=== PATIENT | female | born 1970 | race Caucasian/White ===

== ENCOUNTER → 2016-04-19 | Outpatient (CLI) | payer OTHER ==
--- NOTE | 2016-04-24 23:26 | ECWPNPC ---
PATIENT NAME: TAHMINA FORBES : 1970 GENDER: FEMALE VISIT DATE: 04/19/2016 DISCHARGE DATE: 04/19/16 1504 VISIT LOCKED DATE TIME: PHYSICIAN: JERRY TEE RESOURCE: JERRY TEE REASON FOR APPOINTMENT 1. W/C BOTH SHOULDERS/ ELBOWS HISTORY OF PRESENT ILLNESS FALL RISK SCREENING: SCREENING :NO FALLS IN THE PAST YEAR 45 YEAR OLD FEMALE PATIENT WITH HISTORY OF CHRONIC RIGHT AND LEFT SHOULDER AND ELBOW PAIN. PATIENT DESCRIBES THE PAIN ACHING, BURNING, STABBING, THROBBING AND HAVING IT ALL THE TIME WITH A PAIN SCORE OF 7/10. PATIENT WAS INJURED IN A WORK RELATED INJURY. 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 PATIENT STATES THAT SHE HAD RIGHT SHOULDER SURGERY ON 01/29/2014, LEFT SHOULDER SURGERY ON 09/29/2014, RIGHT ELBOW SURGERY ON 05/07/2015, AND LEFT ELBOW SURGERY ON 09/08/2015. PATIENT REPORTS THAT NOTHING OVER THE COUNTER HELPS WITH HER PAIN ANYMORE. PATIENT STATES SHE WAS REFERRED TO US BY DR. PARKER. PATIENT STATES SHE IS ON MEDICATION FOR HIGH BLOOD PRESSURE. PATIENT INDICATES THAT LIFTING AND GARDENING INCREASES HER PAIN LEVELS. PATIENT STATES THAT A HEAT COMPRESS DOES PROVIDE TEMPORARY PAIN RELIEF. PATIENT STATES THAT SHE USE TO HAVE PHYSICAL THERAPY IN THE PAST BUT HAS SINCE STOPPED DUE THERAPY NO LONGER PROVIDING ANY PAIN RELIEF. PATIENT DENIES UNEXPLAINABLE WEIGHT LOSS, FEVER, CHILLS, NEW CHANGES ON HER URINARY OR BOWEL CONTROL. PAIN SCREENING: PATIENT HAS A COMPLAINT OF ACUTE OR CHRONIC PAIN YES CURRENT MEDICATIONS TAKING LISINOPRIL-HYDROCHLOROTHIAZIDE 10-12.5 MG TABLET 1 TABLET ORALLY DAILY TAKING NEURONTIN 300 MG CAPSULE 1 CAPSULE ORALLY THREE TIMES A DAY TAKING LEVOTHYROXINE SODIUM 125 MCG TABLET 1 TABLET ON AN EMPTY STOMACH IN THE MORNING ORALLY ONCE A DAY TAKING ROPINIROLE HCL 1 MG TABLET 1 TAB ORALLY BEFORE BEDTIME TAKING FLUOXETINE HCL 40 MG CAPSULE 1 CAPSULE IN THE MORNING ORALLY ONCE A DAY TAKING ESTRACE 2 MG TABLET 1 TABLET ORALLY DAILY TAKING BUSPIRONE HCL 15 MG TABLET 1 TABLET ORALLY TWICE A DAY TAKING TRAZODONE HCL 100 MG TABLET 1 TABLET AT BEDTIME ORALLY ONCE A DAY PRN TAKING PRAVASTATIN SODIUM 40 MG TABLET 1 TABLET ORALLY ONCE A DAY DISCONTINUED ESTRADIOL 2 MG RING VAGINAL DISCONTINUED CELEXA 20 MG TABLET ORALLY DISCONTINUED TIZANIDINE HCL 4 MG CAPSULE 1 CAPSULE NEEDED ORALLY THREE TIMES A DAY DISCONTINUED ACETAMINOPHEN-CODEINE #3 300-30 MG TABLET 1 TABLET NEEDED ORALLY EVERY 6 HRS MEDICATION LIST REVIEWED AND RECONCILED WITH THE PATIENT PAST MEDICAL HISTORY HYPERTENTION ANXIETY DEPRESSION BILAT. SHOULDER AND ELBOW PAIN ALLERGIES N.K.D.A. SURGICAL HISTORY UMBILICAL HERNIA REPAIR CARPAL TUNNEL RELEASE-BILAT. BILAT. SHOULDER ARTHROSCOPY ROTATOR CUFF REPAIR TOTAL HYSTERECTOMY 2008 BILAT. ELBOW RELEASE FAMILY HISTORY FATHER: ALIVE, DIAGNOSED WITH HEART DISEASE MOTHER: 1DAUGHTER(S) - HEALTHY. SOCIAL HISTORY GENERAL: TOBACCO USE ARE YOU A:FORMER SMOKER HOW LONG HAS IT BEEN SINCE YOU LAST SMOKED?5-10 YEARS ALCOHOL SCREENING POINTS0 INTERPRETATIONNEGATIVE RECREATIONAL DRUG USE DRUG USE?NO CAFFEINE CAFFEINE USE?YES 2-4 GLASSES OF SODA/DAY OCCUPATION: DISABILITY. DIET: REGULAR. EXERCISE: NO REGULAR EXERCISE. MARITAL STATUS: . OTHERS AT HOME: SPOUSE, CHILDREN, OTHER RELATIVE. PETS: NONE. YAZIDISM: NO SCIENTOLOGY BELIEFS THAT WOULD IMPACT HEALTH CARE. LANGUAGE: WELSH. EDUCATION: PLAN OF CARE REVIEWED WITH PATIENT.. LEARNING BARRIERS / SPECIAL NEEDS BARRIERS TO LEARNING?NO LEARNING PREFERENCES?YES :DEMONSTRATION/VERBAL INSTRUCTION MEDICATION ABUSE NO PSYCHOLOGICAL HX TREATMENTYES ON MEDICATION PAIN CLINIC PFS, CLERGY, PUBLIC HEALTH REFERRALS PFS REFERRAL NEEDED?NO CLERGY REFERRAL NEEDED?NO PUBLIC HEALTH REFERRAL NEEDED?NO WAS THE PROVIDER NOTIFIED OF ANY PERTINENT INFO?NO ADVANCED DIRECTIVES HEALTH CARE PROXY?NO DECLINES INFORMATION AT THIS TIME POWER OF BUSINESS ADMINISTRATION TEACHER?NO HOSPITALIZATION/MAJOR DIAGNOSTIC PROCEDURE SEE ABOVE SURGERY CHILD REVIEW OF SYSTEMS CONSTITUTIONAL: ANY CHANGE IN YOUR MEDICAL CONDITION? NO . CHILLS NO . FEVER NO . INFECTION: DO YOU HAVE NEW INFECTIONS? NO . DO YOU HAVE HISTORY OF MRSA? NO . MUSCULOSKELETAL: ANY NEW PATTERNS OF PAIN OR NUMBNESS? NO . SYTEMIC LUPUS NO . GASTROENTEROLOGY: ANY NEW CHANGE IN BOWEL CONTROL? NO . BARRETTS ESOPHAGUS NO . CIRRHOSIS NO . HEPATITIS NO . LIVER FAILURE NO . ACID REFLUX NO . UNEXPLAINED WEIGHT LOSS NO . GENITOURINARY: ANY NEW CHANGE IN BLADDER CONTROL? NO . IS THERE A CHANCE YOU COULD BE ? NO . HEMATOLOGY/LYMPH: DO YOU TAKE ANY BLOOD THINNERS? (FOR EXAMPLE- COUMADIN, PLAVIX, AGGRENOX, PLATEL, PRADAXA, OR XARELTO) NO . WHEN WAS YOUR LAST DOSE? DATE: TIME: . LOW PLATELET COUNT NO . SICKLE CELL DISEASE NO . VON WILLIEBRANDS NO . FACTOR V LEIDEN NO . THALLASEMIA NO . ANEMIA NO . EASY BRUISING NO . NEUROLOGY: HAVE YOU FALLEN IN THE PAST 6 MONTHS? NO . ANY NEW EXTREMITY NUMBNESS OR WEAKNESS? NO . HEAD INJURY NO . DEMENTIA NO . CEREBRAL PALSY NO . MULTIPLE SCLEROSIS NO . DIZZINESS INTERMITTENT . HEADACHE NO . STROKES NO . VERTIGO NO . CARDIOLOGY: DO YOU HAVE A PACEMAKER OR DEFIBRILLATOR? NO . ANGINA NO . HEART ATTACK NO . HEART SURGERY NO . CONGESTIVE HEART FAILURE/FLUID OVERLOAD NO . CHEST PAIN NO . HIGH BLOOD PRESSURE ON MEDICATION(S) . IRREGULAR HEART BEAT NO . RESPIRATORY: HAVE YOU BEEN SICK IN THE PAST WEEK? NO . FEVER NO . FLU LIKE SYMPTOMS? NO . CPAP NO . BYPAP NO . ASTHMA NO . EMPHYSEMA NO . CHRONIC LUNG DISEASES NO . SHORTNESS OF BREATH ON EXERTION NO . COUGH NO . SNORING NO . INTEGUMENTARY: DO YOU HAVE ANY RASHES OR OPEN SORES? NO . ALLERGIC/IMMUNO: ARE YOU ALLERGIC TO SHELLFISH OR IV DYE? NO . ANY NEW ALLERGIES? NO . PSYCHIATRIC: DO YOU HAVE THOUGHTS OF HURTING YOURSELF OR SOMEONE ELSE? NO . ARE YOU ABUSED, NEGLECTED, OR IN AN UNSAFE ENVIRONMENT? NO . ENDOCRINOLOGY: ARE YOU DIABETIC? NO . THYROID DISORDER HYPOTHYROID . OTHER: DO YOU NEED ANY PRESCRIPTIONS? NO . IF YES, PLEASE LIST: ____ . ANY NEW PROBLEMS WITH YOUR MEDICATIONS? NO . WHEN DID YOU LAST EAT? ____ . WHEN DID YOU LAST DRINK? ____ . WHAT DID YOU LAST DRINK? ____ . NAME OF PERSON DRIVING YOU HOME? ____ . DO YOU HAVE ANY OTHER QUESTIONS OR CONCERNS NO . REVIEWED BY: PROVIDER: JERRY TEE MD . VITAL SIGNS WT 195 LBS, HT 65 IN, BMI 32.45 INDEX, BP 128/73 MM HG, HR 79 /MIN, RR 16 /MIN, TEMP 96.3 F, OXYGEN SAT % 96, NA INITIALS TL 1325, REVIEWED BY: AD. EXAMINATION : PATIENT IS ALERT O X 3 AND COOPERATIVE. PATIENT CAN ONLY ABDUCT UPPER EXTREMITIES AT 80 DEGREES. LEFT HAND INSTRUMENTATION SPECIALIST IS WEAKER THAN THE RIGHT. PATIENT'S RIGHT AND LEFT SHOULDERS AND ELBOWS ARE SORE AND TENDER TO THE TOUCH. PATIENT HAS HYPERPATHIA IN THE LEFT SHOULDER AREA. PATIENT HAS SURGICAL SCARS IN BOTH SHOULDERS AND ELBOWS. ASSESSMENTS PAIN IN RIGHT SHOULDER - M25.511 (PRIMARY) PAIN IN LEFT SHOULDER - M25.512 PAIN IN RIGHT ELBOW - M25.521 PAIN IN LEFT ELBOW - M25.522 TREATMENT OTHERS START TYLENOL/CODEINE #3 TABLET, 300-30 MG, 1 TABLET NEEDED, ORALLY, EVERY 6 HRS PRN FOR PAIN MDD3, 30 DAY(S), 75, REFILLS 0 NOTES: WE DISCUSSED SEVERAL ISSUES WITH MS. FORBES'S PAIN MANAGEMENT CASE. PATIENT WILL START ON TYLENOL WITH CODEINE FOR PAIN RELIEF. PATIENT USES OPIOIDS, I EXTENSIVELY DISCUSSED WITH THE PATIENT ABOUT NOT CONSUMING ALCOHOL AND BENZODIAZEPINES SUCH XANAX AND ATIVAN, IT CAN CAUSE DIZZINESS, EXTREME SLEEPINESS, DANGEROUSLY SUPPRESSED BREATHING AND CAUSE COMA OR . PATIENT WILL SIGN THE NARCOTIC AGREEMENT TODAY. COMPLETED THE OPIOID RISK TOOL TODAY. INFORMED THE PATIENT THAT I DO NOT PRESCRIBE OVER THE PHONE. I EVALUATED PATIENT AT 100 PERCENT DISABLED PER REFERRING PHYSICIAN. PATIENT WILL FOLLOW UP WITH ME IN 3 WEEKS. INSTRUCTIONS WERE GIVEN, QUESTIONS WERE ANSWERED, PATIENT REPORTS UNDERSTANDING AND AGREES WITH THE PLAN. I, GARY VASQUEZ, DOCUMENTED THE ABOVE INFORMATION ACTING A SCRIBE FOR DR. TEE. I HAVE REVIEWED THE ABOVE DOCUMENT, WRITTEN BY GARY PERALTA AND I VERIFY THAT IT IS ACCURATE. PROCEDURES PN WORKMANS' COMP OPINION IN YOUR OPINION, WAS THE INCIDENT THAT THE PATIENT DESCRIBED THE COMPETENT MEDICAL CAUSE OF THIS INJURY/ILLNESS? YES ARE THE PATIENT'S COMPLAINTS CONSISTENT WITH HIS/HER HISTORY OF THE INJURY/ILLNESS? YES IS THE PATIENT'S HISTORY OF THE INJURY/ILLNESS CONSISTENT WITH YOUR OBJECTIVE FINDING? YES WHAT IS THE PERCENTAGE OF TEMPORARY IMPAIRMENT? TOTAL = 100% IS THE PATIENT WORKING? NO DOCTOR ON SITE: JERRY BRICE MD PROCEDURE CODES FA211 ESTABILISHED PATIENT [facility] FACILITY CHARGE G8730 PAIN ASSESS POS TOOL F/U PLAN DOC G8427 DOC MEDS VERIFIED W/PT OR RE FOLLOW UP 3 WEEKS ELECTRONICALLY SIGNED BY JERRY TEE MD ON 04/24/2016 AT 10:42 PM EST DISCLAIMER : THIS IS A VISIT SUMMARY EXTRACTED FROM THE [employer] CHART. IT IS NOT A COPY OF THE [employer] PROGRESS NOTE. MTDD
== END ==
LOC: M PAIN 13:20
PROVIDERS: ATTEND Anesthesiology
DX: Z09 Encounter for follow-up examination after completed treatment for conditions other than malignant neoplasm (principal); G89.29 Other chronic pain; M25.511 Pain in right shoulder; M25.512 Pain in left shoulder; M25.521 Pain in right elbow; M25.522 Pain in left elbow; I10 Essential (primary) hypertension; E03.9 Hypothyroidism, unspecified; F32.9 Major depressive disorder, single episode, unspecified; F41.9 Anxiety disorder, unspecified; Z79.899 Other long term (current) drug therapy; Z87.891 Personal history of nicotine dependence

== ENCOUNTER → 2016-05-12 | Outpatient (CLI) | payer OTHER ==
--- NOTE | 2016-05-19 01:59 | ECWPNPC ---
PATIENT NAME: TAHMINA FORBES : 1970 GENDER: FEMALE VISIT DATE: 05/12/2016 DISCHARGE DATE: 05/12/16 1255 VISIT LOCKED DATE TIME: PHYSICIAN: JERRY TEE RESOURCE: JERRY TEE REASON FOR APPOINTMENT 1. W/C R AND L SHOULDER/ELBOW HISTORY OF PRESENT ILLNESS HISTORY OF PRESENT ILLNESS: PAIN THE PATIENT DESCRIBES THE PAIN... 45 YEAR OLD FEMALE PATIENT WITH HISTORY OF CHRONIC RIGHT AND LEFT SHOULDER AND ELBOW PAIN. PATIENT DESCRIBES THE PAIN ACHING AND HAVING IT ALL THE TIME AND BURNING BUT IT COMES AND GOES ON THE LEFT ELBOW AND TENDER, THROBBING, SORE AND HAVING IT ALL THE TIME IN THE RIGHT AND LEFT SHOULDER AREA AND RIGHT ELBOW WITH A PAIN SCORE OF 6/10 ON TODAY'S VISIT. PATIENT WAS INJURED IN A WORK RELATED INJURY ON 11/04/2009 WORKING FOR [employer]. 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 PATIENT REPORTS THAT HER SHOULDERS ARE IN CONSTANT PAIN AND THE PAIN SOMETIMES WAKES HER UP AT NIGHT. PATIENT REPORTS THAT SHE HAS TRIED TRAMADOL AND TOPICAL PRODUCTS AND THEY DO NOT WORK. PATIENT REPORTS THAT TYLENOL WITH CONDEINE DOES TAKE THE EDGE OFF THE PAIN BUT THE PAIN IS STILL THERE. PATIENT DENIES UNEXPLAINABLE WEIGHT LOSS, FEVER, CHILLS, NEW CHANGES ON HER URINARY OR BOWEL CONTROL. FALL RISK SCREENING: SCREENING :NO FALLS IN THE PAST YEAR CURRENT MEDICATIONS TAKING TYLENOL/CODEINE #3 300-30 MG TABLET 1 TABLET NEEDED ORALLY EVERY 6 HRS PRN FOR PAIN MDD3 TAKING LISINOPRIL-HYDROCHLOROTHIAZIDE 10-12.5 MG TABLET 1 TABLET ORALLY DAILY TAKING NEURONTIN 300 MG CAPSULE 1 CAPSULE ORALLY THREE TIMES A DAY TAKING LEVOTHYROXINE SODIUM 125 MCG TABLET 1 TABLET ON AN EMPTY STOMACH IN THE MORNING ORALLY ONCE A DAY TAKING ROPINIROLE HCL 1 MG TABLET 1 TAB ORALLY BEFORE BEDTIME TAKING FLUOXETINE HCL 40 MG CAPSULE 1 CAPSULE IN THE MORNING ORALLY ONCE A DAY TAKING ESTRACE 2 MG TABLET 1 TABLET ORALLY DAILY TAKING BUSPIRONE HCL 15 MG TABLET 1 TABLET ORALLY TWICE A DAY TAKING TRAZODONE HCL 100 MG TABLET 1 TABLET AT BEDTIME ORALLY ONCE A DAY PRN TAKING PRAVASTATIN SODIUM 40 MG TABLET 1 TABLET ORALLY ONCE A DAY MEDICATION LIST REVIEWED AND RECONCILED WITH THE PATIENT PAST MEDICAL HISTORY HYPERTENTION ANXIETY DEPRESSION BILAT. SHOULDER AND ELBOW PAIN ALLERGIES N.K.D.A. SURGICAL HISTORY UMBILICAL HERNIA REPAIR CARPAL TUNNEL RELEASE-BILAT. BILAT. SHOULDER ARTHROSCOPY ROTATOR CUFF REPAIR TOTAL HYSTERECTOMY 2008 BILAT. ELBOW RELEASE FAMILY HISTORY NO FAMILY HISTORY DOCUMENTED. SOCIAL HISTORY GENERAL: TOBACCO USE ARE YOU A:NONSMOKER LEARNING BARRIERS / SPECIAL NEEDS ORIENTED TO PLAN OF CARE: PATIENT, PAIN MANAGEMENT PATIENT, ORIENTED TO PLAN OF CARE: PATIENT, PAIN MANAGEMENT PATIENT. NEW PATIENT PAIN DIARY TODAY'S VISITNOTES FROM 0-10, WHAT LEVEL IS YOUR PAIN TODAY?0 PAIN CLINIC PFS, CLERGY, PUBLIC HEALTH REFERRALS PFS REFERRAL NEEDED?NO CLERGY REFERRAL NEEDED?NO PUBLIC HEALTH REFERRAL NEEDED?NO WAS THE PROVIDER NOTIFIED OF ANY PERTINENT INFO?NO PFS REFERRAL NEEDED?NO CLERGY REFERRAL NEEDED?NO PUBLIC HEALTH REFERRAL NEEDED?NO WAS THE PROVIDER NOTIFIED OF ANY PERTINENT INFO?NO HOSPITALIZATION/MAJOR DIAGNOSTIC PROCEDURE SEE ABOVE SURGERY CHILD REVIEW OF SYSTEMS CONSTITUTIONAL: ANY CHANGE IN YOUR MEDICAL CONDITION? NO . CHILLS NO . FEVER NO . INFECTION: DO YOU HAVE NEW INFECTIONS? NO . DO YOU HAVE HISTORY OF MRSA? NO . MUSCULOSKELETAL: ANY NEW PATTERNS OF PAIN OR NUMBNESS? NO . GASTROENTEROLOGY: ANY NEW CHANGE IN BOWEL CONTROL? NO . GENITOURINARY: ANY NEW CHANGE IN BLADDER CONTROL? NO . IS THERE A CHANCE YOU COULD BE ? NO . HEMATOLOGY/LYMPH: DO YOU TAKE ANY BLOOD THINNERS? (FOR EXAMPLE- COUMADIN, PLAVIX, AGGRENOX, PLATEL, PRADAXA, OR XARELTO) NO . WHEN WAS YOUR LAST DOSE? DATE: TIME: . NEUROLOGY: HAVE YOU FALLEN IN THE PAST 6 MONTHS? NO . ANY NEW EXTREMITY NUMBNESS OR WEAKNESS? NO . CARDIOLOGY: DO YOU HAVE A PACEMAKER OR DEFIBRILLATOR? NO . RESPIRATORY: HAVE YOU BEEN SICK IN THE PAST WEEK? NO . FEVER NO . FLU LIKE SYMPTOMS? NO . COUGH NO . INTEGUMENTARY: DO YOU HAVE ANY RASHES OR OPEN SORES? NO . ALLERGIC/IMMUNO: ARE YOU ALLERGIC TO SHELLFISH OR IV DYE? NO . ANY NEW ALLERGIES? NO . PSYCHIATRIC: DO YOU HAVE THOUGHTS OF HURTING YOURSELF OR SOMEONE ELSE? NO . ARE YOU ABUSED, NEGLECTED, OR IN AN UNSAFE ENVIRONMENT? NO . ENDOCRINOLOGY: ARE YOU DIABETIC? NO . OTHER: DO YOU NEED ANY PRESCRIPTIONS? YES . IF YES, PLEASE LIST: TYLENOL W/ CODIENE . ANY NEW PROBLEMS WITH YOUR MEDICATIONS? NO . WHEN DID YOU LAST EAT? ____ . WHEN DID YOU LAST DRINK? ____ . WHAT DID YOU LAST DRINK? ____ . NAME OF PERSON DRIVING YOU HOME? ____ . DO YOU HAVE ANY OTHER QUESTIONS OR CONCERNS YES,IS THERE ANYTHING A BIT STRONGER TO HELP MANAGE THE PAIN . REVIEWED BY: PROVIDER: JERRY TEE MD . VITAL SIGNS WT 211.8 LBS, HT 65 IN, BMI 35.24 INDEX, BP 123/65 MM HG, HR 66 /MIN, RR 16 /MIN, TEMP 96.0 F, OXYGEN SAT % 96, NA INITIALS TL 1115, REVIEWED BY: CM. EXAMINATION : PATIENT IS ALERT O X 3 AND COOPERATIVE. PATIENT IS ABLE TO ABDUCT HER UPPER EXTREMITIES AT 80 DEGREES. PATIENT'S ARMS ARE WEAKER IN STRENGTH AND THERE IS A REDUCTION IN HER HAND CRANE HOOKER. THERE IS BILATERAL SHOULDER HYPERPATHIA. THERE IS TENDERNESS IN THE RIGHT AND LEFT SHOULDER WITH BANDS OF TISSUE, RESTRICTION OF MOVEMENT, AND PRESENCE OF TRIGGER POINTS. PATIENT HAS SURGICAL SCARS IN BOTH SHOULDERS AND ELBOWS. ASSESSMENTS PAIN IN RIGHT SHOULDER - M25.511 (PRIMARY) PAIN IN LEFT SHOULDER - M25.512 PAIN IN RIGHT ELBOW - M25.521 PAIN IN LEFT ELBOW - M25.522 TREATMENT OTHERS NOTES: WE DISCUSSED SEVERAL ISSUES WITH MS. FORBES'S PAIN MANAGEMENT CASE. PATIENT WILL RECEIVE A REFILL OF NEURONTIN TODAY AND START ON NUCYNTA TODAY. PATIENT IS USING NUCYNTA FOR NEUROPATHIC PAIN. PATIENT DENIES ABUSING THE MEDICATIONS AND ONLY USING THEM INTENDED FOR PAIN MANAGEMENT. PATIENT BROUGHT IN HER MEDICATION BOTTLES TODAY. I DISCUSSED WITH THE PATIENT ABOUT TRIGGER POINT INJECTIONS IN HER SHOULDER AREAS, A SUPRA SCAPULAR NERVE INJECTION IN THE SHOULDER AND THE POSSIBILITY OF A DCS, PATIENT INDICATED THAT SHE WOULD LIKE SOME TIME TO THINK OVER THE POSSIBILITIES OF INTERVENTIONS. I ORDERED UTOX TODAY. PATIENT TO FOLLOW UP IN ONE MONTH. INSTRUCTIONS WERE GIVEN, QUESTIONS WERE ANSWERED, PATIENT REPORTS UNDERSTANDING AND AGREES WITH THE PLAN. I, GARY VASQUEZ, DOCUMENTED THE ABOVE INFORMATION ACTING A SCRIBE FOR DR. TEE. I HAVE REVIEWED THE ABOVE DOCUMENT, WRITTEN BY GARY PERALTA AND I VERIFY THAT IT IS ACCURATE. PROCEDURES PN WORKMANS' COMP OPINION IN YOUR OPINION, WAS THE INCIDENT THAT THE PATIENT DESCRIBED THE COMPETENT MEDICAL CAUSE OF THIS INJURY/ILLNESS? YES ARE THE PATIENT'S COMPLAINTS CONSISTENT WITH HIS/HER HISTORY OF THE INJURY/ILLNESS? YES IS THE PATIENT'S HISTORY OF THE INJURY/ILLNESS CONSISTENT WITH YOUR OBJECTIVE FINDING? YES WHAT IS THE PERCENTAGE OF TEMPORARY IMPAIRMENT? TOTAL = 100% IS THE PATIENT WORKING? NO DOCTOR ON SITE: JERRY BRICE MD PROCEDURE CODES FA211 ESTABILISHED PATIENT [facility] CHARGE G8730 PAIN ASSESS POS TOOL F/U PLAN DOC G8427 DOC MEDS VERIFIED W/PT OR RE DISPOSITION & COMMUNICATION FOLLOW UP 4 WEEKS ELECTRONICALLY SIGNED BY JERRY TEE MD ON 05/17/2016 AT 08:28 PM EST DISCLAIMER : THIS IS A VISIT SUMMARY EXTRACTED FROM THE [employer] CHART. IT IS NOT A COPY OF THE [facility] PROGRESS NOTE. REILLY
== END ==
LOC: M PAIN 10:40
PROVIDERS: ATTEND Anesthesiology
DX: Z09 Encounter for follow-up examination after completed treatment for conditions other than malignant neoplasm (principal); G89.29 Other chronic pain; M25.511 Pain in right shoulder; M25.512 Pain in left shoulder; M25.521 Pain in right elbow; M25.522 Pain in left elbow; I10 Essential (primary) hypertension; F41.9 Anxiety disorder, unspecified; F32.9 Major depressive disorder, single episode, unspecified; Z87.891 Personal history of nicotine dependence; Z79.899 Other long term (current) drug therapy

== ENCOUNTER → 2016-06-01 | Outpatient (CLI) | payer OTHER ==
--- NOTE | 2016-06-02 07:26 | REP ---
CHEST PA AND LATERAL: 06/01/2016 CLINICAL HISTORY: Dyspnea and cough. COMPARISON: 11/01/2015 FINDINGS: Lungs are well inflated. There is some minor basilar subsegmental atelectatic change superimposed on some minor chronic fibrotic change. There is no pleural effusion, acute infiltrate with air bronchograms, parenchymal lung mass or nodule. The heart is not enlarged. There is no vascular redistribution or edema. The aorta is normal. Airway intact and the bony thorax shows no focal lesion. There are surgical anchors in the left shoulder from prior surgery. IMPRESSION: 1. Some bibasilar patchy atelectatic change without dense consolidation with air bronchograms nor effusion. No cardiomegaly, edema or other acute finding. Signed by Daniel Taylor MD 06/02/2016 04:22 P
== END ==
LOC: M WUC 18:05
PROVIDERS: ATTEND Physician Assistant
DX: R06.02 Shortness of breath (principal)

== ENCOUNTER → 2016-06-09 | Outpatient (CLI) | payer OTHER ==
--- NOTE | 2016-06-18 23:14 | ECWPNPC ---
PATIENT NAME: TAHMINA FORBES : 1970 GENDER: FEMALE VISIT DATE: 06/09/2016 DISCHARGE DATE: 06/09/16 1108 VISIT LOCKED DATE TIME: PHYSICIAN: JERRY TEE RESOURCE: JERRY TEE REASON FOR APPOINTMENT 1. W/C BILATERAL SHOULDERS AND ELBOW HISTORY OF PRESENT ILLNESS HISTORY OF PRESENT ILLNESS: PAIN THE PATIENT DESCRIBES THE PAIN... 45 YEAR OLD FEMALE PATIENT WITH HISTORY OF CHRONIC RIGHT AND LEFT SHOULDER AND ELBOW PAIN. PATIENT DESCRIBES THE PAIN ACHING, TENDER, THROBBING, SORE, AND HAVING IT ALL THE TIME WITH A PAIN SCORE OF 4/10 ON TODAY'S VISIT. PATIENT WAS INJURED IN A WORK RELATED INJURY ON 11/04/2009 WORKING FOR [employer]. 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 PATIENT REPORTS THAT HER SHOULDERS ARE IN CONSTANT PAIN AND THE PAIN SOMETIMES WAKES HER UP AT NIGHT. PATIENT DENIES UNEXPLAINABLE WEIGHT LOSS, FEVER, CHILLS, NEW CHANGES ON HER URINARY OR BOWEL CONTROL. FALL RISK SCREENING: SCREENING :NO FALLS IN THE PAST YEAR CURRENT MEDICATIONS TAKING LISINOPRIL-HYDROCHLOROTHIAZIDE 10-12.5 MG TABLET 1 TABLET ORALLY DAILY TAKING NEURONTIN 300 MG CAPSULE 1 CAPSULE ORALLY THREE TIMES A DAY TAKING LEVOTHYROXINE SODIUM 125 MCG TABLET 1 TABLET ON AN EMPTY STOMACH IN THE MORNING ORALLY ONCE A DAY TAKING ROPINIROLE HCL 1 MG TABLET 1 TAB ORALLY BEFORE BEDTIME TAKING FLUOXETINE HCL 40 MG CAPSULE 1 CAPSULE IN THE MORNING ORALLY ONCE A DAY TAKING ESTRACE 2 MG TABLET 1 TABLET ORALLY DAILY TAKING BUSPIRONE HCL 15 MG TABLET 1 TABLET ORALLY TWICE A DAY TAKING TRAZODONE HCL 100 MG TABLET 1 TABLET AT BEDTIME ORALLY ONCE A DAY PRN TAKING PRAVASTATIN SODIUM 40 MG TABLET 1 TABLET ORALLY ONCE A DAY TAKING NUCYNTA 50 MG TABLET 1 TABLET ORALLY EVERY 6 HRS- MDD 3 DISCONTINUED TYLENOL/CODEINE #3 300-30 MG TABLET 1 TABLET NEEDED ORALLY EVERY 6 HRS PRN FOR PAIN MDD3 MEDICATION LIST REVIEWED AND RECONCILED WITH THE PATIENT PAST MEDICAL HISTORY HYPERTENTION ANXIETY DEPRESSION BILAT. SHOULDER AND ELBOW PAIN ALLERGIES N.K.D.A. SURGICAL HISTORY UMBILICAL HERNIA REPAIR CARPAL TUNNEL RELEASE-BILAT. BILAT. SHOULDER ARTHROSCOPY ROTATOR CUFF REPAIR TOTAL HYSTERECTOMY 2007 BILAT. ELBOW RELEASE FAMILY HISTORY NO FAMILY HISTORY DOCUMENTED. SOCIAL HISTORY GENERAL: TOBACCO USE ARE YOU A:NONSMOKER LEARNING BARRIERS / SPECIAL NEEDS ORIENTED TO PLAN OF CARE: PATIENT, PAIN MANAGEMENT PATIENT, ORIENTED TO PLAN OF CARE: PATIENT, PAIN MANAGEMENT PATIENT. NEW PATIENT PAIN DIARY TODAY'S VISITNOTES FROM 0-10, WHAT LEVEL IS YOUR PAIN TODAY?0 PAIN CLINIC PFS, CLERGY, PUBLIC HEALTH REFERRALS PFS REFERRAL NEEDED?NO CLERGY REFERRAL NEEDED?NO PUBLIC HEALTH REFERRAL NEEDED?NO WAS THE PROVIDER NOTIFIED OF ANY PERTINENT INFO?NO PFS REFERRAL NEEDED?NO CLERGY REFERRAL NEEDED?NO PUBLIC HEALTH REFERRAL NEEDED?NO WAS THE PROVIDER NOTIFIED OF ANY PERTINENT INFO?NO HOSPITALIZATION/MAJOR DIAGNOSTIC PROCEDURE SEE ABOVE SURGERY CHILD REVIEW OF SYSTEMS CONSTITUTIONAL: ANY CHANGE IN YOUR MEDICAL CONDITION? NO . CHILLS NO . FEVER NO . INFECTION: DO YOU HAVE NEW INFECTIONS? NO . DO YOU HAVE HISTORY OF MRSA? NO . MUSCULOSKELETAL: ANY NEW PATTERNS OF PAIN OR NUMBNESS? NO . GASTROENTEROLOGY: ANY NEW CHANGE IN BOWEL CONTROL? NO . GENITOURINARY: ANY NEW CHANGE IN BLADDER CONTROL? NO . IS THERE A CHANCE YOU COULD BE ? NO . HEMATOLOGY/LYMPH: DO YOU TAKE ANY BLOOD THINNERS? (FOR EXAMPLE- COUMADIN, PLAVIX, AGGRENOX, PLATEL, PRADAXA, OR XARELTO) NO . WHEN WAS YOUR LAST DOSE? DATE: TIME: . NEUROLOGY: HAVE YOU FALLEN IN THE PAST 6 MONTHS? NO . ANY NEW EXTREMITY NUMBNESS OR WEAKNESS? NO . CARDIOLOGY: DO YOU HAVE A PACEMAKER OR DEFIBRILLATOR? NO . RESPIRATORY: HAVE YOU BEEN SICK IN THE PAST WEEK? NO . FEVER NO . FLU LIKE SYMPTOMS? NO . COUGH NO . INTEGUMENTARY: DO YOU HAVE ANY RASHES OR OPEN SORES? NO . ALLERGIC/IMMUNO: ARE YOU ALLERGIC TO SHELLFISH OR IV DYE? NO . ANY NEW ALLERGIES? NO . PSYCHIATRIC: DO YOU HAVE THOUGHTS OF HURTING YOURSELF OR SOMEONE ELSE? NO . ARE YOU ABUSED, NEGLECTED, OR IN AN UNSAFE ENVIRONMENT? NO . ENDOCRINOLOGY: ARE YOU DIABETIC? NO . OTHER: DO YOU NEED ANY PRESCRIPTIONS? NO . IF YES, PLEASE LIST: ____ . ANY NEW PROBLEMS WITH YOUR MEDICATIONS? NO . WHEN DID YOU LAST EAT? ____ . WHEN DID YOU LAST DRINK? ____ . WHAT DID YOU LAST DRINK? ____ . NAME OF PERSON DRIVING YOU HOME? ____ . DO YOU HAVE ANY OTHER QUESTIONS OR CONCERNS NO . REVIEWED BY: PROVIDER: JERRY TEE MD . VITAL SIGNS WT 200 LBS, HT 65 IN, BMI 33.28 INDEX, BP 118/64 MM HG, HR 71 /MIN, RR 16 /MIN, TEMP 97.1 F, OXYGEN SAT % 96, NA INITIALS TL 0913, REVIEWED BY: CM. EXAMINATION : PATIENT IS ALERT O X 3 AND COOPERATIVE. PATIENT'S RIGHT HAND BRUSH MAKER IS WEAKER THAN THE LEFT. PATIENT HAS HYPERPATHIA IN THE RIGHT AND LEFT SHOULDERS. PATIENT IS ONLY ABLE TO ABDUCT HER UPPER EXTREMITIES TO SHOULDER LEVEL. PATIENT HAS NEUROPATHY OF THE RIGHT AND LEFT SHOULDER. PATIENT HAS TENDERNESS IN THE RIGHT AND LEFT SHOULDER WITH BANDS OF TISSUES, RESTRICTION OF MOVEMENT, AND PRESENCE OF TRIGGER POINTS. ASSESSMENTS PAIN IN RIGHT SHOULDER - M25.511 (PRIMARY) PAIN IN LEFT SHOULDER - M25.512 PAIN IN RIGHT ELBOW - M25.521 PAIN IN LEFT ELBOW - M25.522 NEUROPATHY OF THE RIGHT AND LEFT SHOULDER. TREATMENT PAIN IN RIGHT SHOULDER NOTES: WE DISCUSSED SEVERAL ISSUES WITH MS. FORBES'S PAIN MANAGEMENT CASE. PATIENT WILL RECEIVE A REFILL OF NUCYNTA TODAY. PATIENT IS TAKING NUCYNTA FOR NEUROPATHIC PAIN. AFTER THE EXAMINATION PATIENT IS A GOOD CANDIDATE FOR A BILATERAL SHOULDER TRIGGER POINT INJECTION. WE DISCUSSED THE RISK, BENEFITS, AND ALTERNATIVES AND THE PATIENT WOULD LIKE TO PROCEED. PATIENT TO FOLLOW UP WITH IN 5 WEEKS. INSTRUCTIONS WERE GIVEN, QUESTIONS WERE ANSWERED, PATIENT REPORTS UNDERSTANDING AND AGREES WITH THE PLAN. I, GARY VASQUEZ, DOCUMENTED THE ABOVE INFORMATION ACTING A SCRIBE FOR DR. TEE. I HAVE REVIEWED THE ABOVE DOCUMENT, WRITTEN BY GARY PERALTA AND I VERIFY THAT IT IS ACCURATE. OTHERS REFILL NUCYNTA TABLET, 50 MG, 1 TABLET, ORALLY, EVERY 6 HRS- MDD 3, 30 DAY(S), 80, REFILLS 0 PROCEDURES PN WORKMANS' COMP OPINION IN YOUR OPINION, WAS THE INCIDENT THAT THE PATIENT DESCRIBED THE COMPETENT MEDICAL CAUSE OF THIS INJURY/ILLNESS? YES ARE THE PATIENT'S COMPLAINTS CONSISTENT WITH HIS/HER HISTORY OF THE INJURY/ILLNESS? YES IS THE PATIENT'S HISTORY OF THE INJURY/ILLNESS CONSISTENT WITH YOUR OBJECTIVE FINDING? YES WHAT IS THE PERCENTAGE OF TEMPORARY IMPAIRMENT? TOTAL = 100% IS THE PATIENT WORKING? NO DOCTOR ON SITE: JERRY BRICE MD [facility] PAIN CLINIC TEACHING: PROCEDURE TEACHING TPI TEACHING GIVEN TO PT.. TRIGGER POINT INJECTIONS REVEIWED WITH PT. PROCEDURE CODES FA211 ESTABILISHED PATIENT [facility] FACILITY CHARGE G8730 PAIN ASSESS POS TOOL F/U PLAN DOC G8427 DOC MEDS VERIFIED W/PT OR RE DISPOSITION & COMMUNICATION FOLLOW UP TPI PENDING APPROVAL ELECTRONICALLY SIGNED BY JERRY TEE MD ON 06/18/2016 AT 10:00 PM EDT DISCLAIMER : THIS IS A VISIT SUMMARY EXTRACTED FROM THE [employer] CHART. IT IS NOT A COPY OF THE [employer] PROGRESS NOTE. REILLY
== END ==
LOC: M PAIN 09:20
PROVIDERS: ATTEND Anesthesiology
DX: Z09 Encounter for follow-up examination after completed treatment for conditions other than malignant neoplasm (principal); G89.29 Other chronic pain; M25.511 Pain in right shoulder; M25.512 Pain in left shoulder; M25.521 Pain in right elbow; M25.522 Pain in left elbow; I10 Essential (primary) hypertension; F32.9 Major depressive disorder, single episode, unspecified; F41.9 Anxiety disorder, unspecified; Z79.899 Other long term (current) drug therapy

== ENCOUNTER → 2016-07-07 | Outpatient (CLI) | payer OTHER ==
--- NOTE | 2016-07-19 00:20 | ECWPNPC ---
PATIENT NAME: TAHMINA FORBES : 1970 GENDER: FEMALE VISIT DATE: 07/07/2016 DISCHARGE DATE: 07/07/16 1626 VISIT LOCKED DATE TIME: PHYSICIAN: JERRY TEE RESOURCE: JERRY TEE REASON FOR APPOINTMENT 1. W/C SHOULDERS HISTORY OF PRESENT ILLNESS HISTORY OF PRESENT ILLNESS: PAIN THE PATIENT DESCRIBES THE PAIN... 45 YEAR OLD FEMALE PATIENT WITH HISTORY OF CHRONIC RIGHT AND LEFT SHOULDER AND ELBOW PAIN. PATIENT DESCRIBES THE PAIN TENDER, SORE, AND HAVING IT ALL THE TIME WITH A PAIN SCORE OF 7/10 ON TODAY'S VISIT. PATIENT WAS INJURED IN A WORK RELATED INJURY. PATIENT STATES THAT WHEN SHE USE TO WORK FOR [employer]MENT [employer] AND DUE TO THE REPETITIOUS MOVEMENT OF HER RIGHT AND LEFT SHOULDERS AND ELBOWS IS HOW SHE BECAME INJURED. PATIENT STATES THAT SHE HAD RIGHT SHOULDER SURGERY ON 01/29/2014, LEFT SHOULDER SURGERY ON 09/29/2014, RIGHT ELBOW SURGERY ON 05/07/2015, AND LEFT ELBOW SURGERY ON 09/08/2015. PATIENT REPORTS THAT HER SHOULDERS ARE IN CONSTANT PAIN AND THE PAIN SOMETIMES WAKES HER UP AT NIGHT. PATIENT DENIES UNEXPLAINABLE WEIGHT LOSS, FEVER, CHILLS, NEW CHANGES ON HER URINARY OR BOWEL CONTROL. FALL RISK SCREENING: SCREENING :NO FALLS IN THE PAST YEAR CURRENT MEDICATIONS TAKING NUCYNTA 50 MG TABLET 1 TABLET ORALLY EVERY 6 HRS- MDD 3 TAKING LISINOPRIL-HYDROCHLOROTHIAZIDE 10-12.5 MG TABLET 1 TABLET ORALLY DAILY TAKING NEURONTIN 300 MG CAPSULE 1 CAPSULE ORALLY THREE TIMES A DAY TAKING LEVOTHYROXINE SODIUM 125 MCG TABLET 1 TABLET ON AN EMPTY STOMACH IN THE MORNING ORALLY ONCE A DAY TAKING ROPINIROLE HCL 1 MG TABLET 1 TAB ORALLY BEFORE BEDTIME TAKING FLUOXETINE HCL 40 MG CAPSULE 1 CAPSULE IN THE MORNING ORALLY ONCE A DAY TAKING ESTRACE 2 MG TABLET 1 TABLET ORALLY DAILY TAKING BUSPIRONE HCL 15 MG TABLET 1 TABLET ORALLY TWICE A DAY TAKING TRAZODONE HCL 100 MG TABLET 1 TABLET AT BEDTIME ORALLY ONCE A DAY PRN TAKING PRAVASTATIN SODIUM 40 MG TABLET 1 TABLET ORALLY ONCE A DAY MEDICATION LIST REVIEWED AND RECONCILED WITH THE PATIENT PAST MEDICAL HISTORY HYPERTENTION ANXIETY DEPRESSION BILAT. SHOULDER AND ELBOW PAIN ALLERGIES N.K.D.A. SURGICAL HISTORY UMBILICAL HERNIA REPAIR CARPAL TUNNEL RELEASE-BILAT. BILAT. SHOULDER ARTHROSCOPY ROTATOR CUFF REPAIR TOTAL HYSTERECTOMY 2008 BILAT. ELBOW RELEASE FAMILY HISTORY NO FAMILY HISTORY DOCUMENTED. SOCIAL HISTORY GENERAL: PAIN CLINIC PFS, CLERGY, PUBLIC HEALTH REFERRALS CLERGY REFERRAL NEEDED?NO WAS THE PROVIDER NOTIFIED OF ANY PERTINENT INFO?NO PFS REFERRAL NEEDED?NO PUBLIC HEALTH REFERRAL NEEDED?NO PATIENT: ____. HOSPITALIZATION/MAJOR DIAGNOSTIC PROCEDURE SEE ABOVE SURGERY CHILD REVIEW OF SYSTEMS CONSTITUTIONAL: ANY CHANGE IN YOUR MEDICAL CONDITION? NO . CHILLS NO . FEVER NO . INFECTION: DO YOU HAVE NEW INFECTIONS? NO . DO YOU HAVE HISTORY OF MRSA? NO . MUSCULOSKELETAL: ANY NEW PATTERNS OF PAIN OR NUMBNESS? NO . GASTROENTEROLOGY: ANY NEW CHANGE IN BOWEL CONTROL? NO . GENITOURINARY: ANY NEW CHANGE IN BLADDER CONTROL? NO . IS THERE A CHANCE YOU COULD BE ? NO . HEMATOLOGY/LYMPH: DO YOU TAKE ANY BLOOD THINNERS? (FOR EXAMPLE- COUMADIN, PLAVIX, AGGRENOX, PLATEL, PRADAXA, OR XARELTO) NO . WHEN WAS YOUR LAST DOSE? DATE: TIME: . NEUROLOGY: HAVE YOU FALLEN IN THE PAST 6 MONTHS? NO . ANY NEW EXTREMITY NUMBNESS OR WEAKNESS? NO . CARDIOLOGY: DO YOU HAVE A PACEMAKER OR DEFIBRILLATOR? NO . RESPIRATORY: HAVE YOU BEEN SICK IN THE PAST WEEK? NO . FEVER NO . FLU LIKE SYMPTOMS? NO . COUGH NO . INTEGUMENTARY: DO YOU HAVE ANY RASHES OR OPEN SORES? NO . ALLERGIC/IMMUNO: ARE YOU ALLERGIC TO SHELLFISH OR IV DYE? NO . ANY NEW ALLERGIES? NO . PSYCHIATRIC: DO YOU HAVE THOUGHTS OF HURTING YOURSELF OR SOMEONE ELSE? NO . ARE YOU ABUSED, NEGLECTED, OR IN AN UNSAFE ENVIRONMENT? NO . ENDOCRINOLOGY: ARE YOU DIABETIC? NO . OTHER: DO YOU NEED ANY PRESCRIPTIONS? YES REFILL NUCYNTA . IF YES, PLEASE LIST: ____ . ANY NEW PROBLEMS WITH YOUR MEDICATIONS? NO . WHEN DID YOU LAST EAT? ____ . WHEN DID YOU LAST DRINK? ____ . WHAT DID YOU LAST DRINK? ____ . NAME OF PERSON DRIVING YOU HOME? ____ . DO YOU HAVE ANY OTHER QUESTIONS OR CONCERNS NO . REVIEWED BY: PROVIDER: JERRY TEE MD . VITAL SIGNS WT 210 LBS, HT 65 IN, BMI 34.94 INDEX, BP 123/63 MM HG, HR 80 /MIN, RR 18 /MIN, TEMP 98.1 F, OXYGEN SAT % 92, NA INITIALS HS, REVIEWED BY: MLF. EXAMINATION : PATIENT IS ALERT O X 3 AND COOPERATIVE. PATIENT IS ABLE TO ABDUCT HER UPPER EXTREMITIES TO THE SHOULDER LEVEL. PATIENT HAS TENDERNESS AND HYPERPATHIA IN THE RIGHT AND LEFT SHOULDERS AND ELBOWS. PATIENT HAS TENDERNESS IN THE RIGHT AND LEFT SHOULDER WITH BANDS OF TISSUES, RESTRICTION OF MOVEMENT, AND PRESENCE OF TRIGGER POINTS. PATIENT HAS TENDERNESS ON THE SCARS IN THE RIGHT AND LEFT SHOULDER AND LEFT ELBOW. 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 TREATMENT PAIN IN RIGHT SHOULDER NOTES: WE DISCUSSED SEVERAL ISSUES WITH MS. FORBES'S PAIN MANAGEMENT CASE. PATIENT WILL RECEIVE A REFILL OF NUCYNTA TODAY FOR SOMATIC PAIN AND ALSO A REFILL OF NEURONTIN. AFTER EXAMINING THE PATIENT SHE IS A GOOD CANDIDATE FOR A SACR NEUROMA INJECTION IN THE RIGHT AND LEFT SHOULDER AND LEFT ELBOW, WE DISCUSSED THE RISK, BENEFITS, AND ALTERNATIVES AND THE PATIENT WOULD LIKE TO PROCEED. PATIENT WILL BE BOOKED PENDING APPROVAL. UTOX ORDERED ON 05/17/2016 SHOWS CONSISTENT RESULTS. INSTRUCTIONS WERE GIVEN, QUESTIONS WERE ANSWERED, PATIENT REPORTS UNDERSTANDING AND AGREES WITH THE PLAN. I, GARY VASQUEZ, DOCUMENTED THE ABOVE INFORMATION ACTING A SCRIBE FOR DR. TEE. I HAVE REVIEWED THE ABOVE DOCUMENT, WRITTEN BY GARY VASQUEZ SCRIBKarena AND I VERIFY THAT IT IS ACCURATE. OTHERS REFILL NUCYNTA TABLET, 50 MG, 1 TABLET, ORALLY (CODE D FOR CHRONIC PAIN), EVERY 6 HRS- MDD 3, 60 DAYS, 160, REFILLS 0 REFILL NEURONTIN CAPSULE, 300 MG, 1 CAPSULE, ORALLY FOR PAIN, FOUR TIMES DAILY MDD4, 30 DAY(S), 120, REFILLS 2 PROCEDURES PN WORKMANS' COMP OPINION IN YOUR OPINION, WAS THE INCIDENT THAT THE PATIENT DESCRIBED THE COMPETENT MEDICAL CAUSE OF THIS INJURY/ILLNESS? YES ARE THE PATIENT'S COMPLAINTS CONSISTENT WITH HIS/HER HISTORY OF THE INJURY/ILLNESS? YES IS THE PATIENT'S HISTORY OF THE INJURY/ILLNESS CONSISTENT WITH YOUR OBJECTIVE FINDING? YES WHAT IS THE PERCENTAGE OF TEMPORARY IMPAIRMENT? TOTAL = 100% IS THE PATIENT WORKING? NO DOCTOR ON SITE: JERRY BRICE MD PROCEDURE CODES FA211 ESTABILISHED PATIENT [facility] FACILITY CHARGE G4330 PAIN ASSESS POS TOOL F/U PLAN DOC G8427 DOC MEDS VERIFIED W/PT OR RE DISPOSITION & COMMUNICATION FOLLOW UP SCAR RUT. INJ. PENDING APPROVAL ELECTRONICALLY SIGNED BY JERRY TEE MD ON 07/18/2016 AT 08:16 AM EDT DISCLAIMER : THIS IS A VISIT SUMMARY EXTRACTED FROM THE [employer] CHART. IT IS NOT A COPY OF THE [employer] PROGRESS NOTE. MTDD
== END ==
LOC: M PAIN 15:20
PROVIDERS: ATTEND Anesthesiology
DX: Z09 Encounter for follow-up examination after completed treatment for conditions other than malignant neoplasm (principal); G89.29 Other chronic pain; M25.511 Pain in right shoulder; M25.512 Pain in left shoulder; M25.521 Pain in right elbow; M25.522 Pain in left elbow; M79.1 Myalgia; I10 Essential (primary) hypertension; F32.9 Major depressive disorder, single episode, unspecified; F41.9 Anxiety disorder, unspecified; Z79.899 Other long term (current) drug therapy

== ENCOUNTER → 2016-08-04 | Outpatient (REF) | payer OTHER | LOC: M SMT 13:14 | PROVIDERS: ATTEND Specialist | DX: R35.0 Frequency of micturition (principal) ==

== ENCOUNTER → 2016-08-10 | Outpatient (CLI) | payer OTHER ==
--- NOTE | 2016-08-20 23:25 | ECWPNPC ---
PATIENT NAME: TAHMINA FORBES : 1970 GENDER: FEMALE VISIT DATE: 08/10/2016 DISCHARGE DATE: 08/10/16 1437 VISIT LOCKED DATE TIME: PHYSICIAN: JERRY TEE RESOURCE: JERRY TEE REASON FOR APPOINTMENT 1. WC BILATERAL ELBOW/SHOULDER PAIN HISTORY OF PRESENT ILLNESS HISTORY OF PRESENT ILLNESS: PAIN THE PATIENT DESCRIBES THE PAIN... 45 YEAR OLD FEMALE PATIENT WITH HISTORY OF CHRONIC RIGHT AND LEFT SHOULDER AND ELBOW PAIN. PATIENT DESCRIBES THE PAIN TENDER, SORE, AND HAVING IT ALL THE TIME WITH A PAIN SCORE OF 4/10 ON TODAY'S VISIT. PATIENT WAS INJURED IN A WORK RELATED INJURY. 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 PATIENT STATES THAT SHE HAD RIGHT SHOULDER SURGERY ON 01/29/2014, LEFT SHOULDER SURGERY ON 09/29/2014, RIGHT ELBOW SURGERY ON 05/07/2015, AND LEFT ELBOW SURGERY ON 09/08/2015. PATIENT REPORTS THAT HER SHOULDERS ARE IN CONSTANT PAIN AND THE PAIN SOMETIMES WAKES HER UP AT NIGHT. PATIENT DENIES UNEXPLAINABLE WEIGHT LOSS, FEVER, CHILLS, NEW CHANGES ON HER URINARY OR BOWEL CONTROL. FALL RISK SCREENING: SCREENING :NO FALLS IN THE PAST YEAR CURRENT MEDICATIONS TAKING NEURONTIN 300 MG CAPSULE 1 CAPSULE ORALLY FOR PAIN FOUR TIMES DAILY MDD4 TAKING LISINOPRIL-HYDROCHLOROTHIAZIDE 10-12.5 MG TABLET 1 TABLET ORALLY DAILY TAKING LEVOTHYROXINE SODIUM 125 MCG TABLET 1 TABLET ON AN EMPTY STOMACH IN THE MORNING ORALLY ONCE A DAY TAKING ROPINIROLE HCL 1 MG TABLET 1 TAB ORALLY BEFORE BEDTIME TAKING FLUOXETINE HCL 40 MG CAPSULE 1 CAPSULE IN THE MORNING ORALLY ONCE A DAY TAKING ESTRACE 2 MG TABLET 1 TABLET ORALLY DAILY TAKING BUSPIRONE HCL 15 MG TABLET 1 TABLET ORALLY TWICE A DAY TAKING TRAZODONE HCL 100 MG TABLET 1 TABLET AT BEDTIME ORALLY ONCE A DAY PRN TAKING PRAVASTATIN SODIUM 40 MG TABLET 1 TABLET ORALLY ONCE A DAY TAKING NUCYNTA 50 MG TABLET 1 TABLET ORALLY EVERY 6 HRS NEEDED FOR PAIN- MDD 3 TAKING OXYBUTYNIN CHLORIDE 5 MG TABLET 1 TABLET ORALLY 3X A DAY MEDICATION LIST REVIEWED AND RECONCILED WITH THE PATIENT PAST MEDICAL HISTORY HYPERTENTION ANXIETY DEPRESSION BILAT. SHOULDER AND ELBOW PAIN ALLERGIES N.K.D.A. SURGICAL HISTORY UMBILICAL HERNIA REPAIR CARPAL TUNNEL RELEASE-BILAT. BILAT. SHOULDER ARTHROSCOPY ROTATOR CUFF REPAIR TOTAL HYSTERECTOMY 2008 BILAT. ELBOW RELEASE FAMILY HISTORY FATHER: ALIVE 67 YRS, DIAGNOSED WITH HEART DISEASE MOTHER: 64 YRS, SMOKER,ALS, EMPHYSEMA,LUNG CANCER 2 SISTER(S) - HEALTHY. 1DAUGHTER(S) - HEALTHY. MOM- ALS, EMPHYSEMA, LUNG CA. SOCIAL HISTORY GENERAL: TOBACCO USE ARE YOU A: FORMER SMOKER.QUIT 9 YEARS AGO ALCOHOL SCREENING DID YOU HAVE A DRINK CONTAINING ALCOHOL IN THE PAST YEAR?NO POINTS0 INTERPRETATIONNEGATIVE RECREATIONAL DRUG USE DRUG USE?NO CAFFEINE CAFFEINE USE?YES 3-4 SODAS DAILY SEXUAL HX HAD SEX IN THE LAST 12 MONTHS (VAGINAL, ORAL, OR ANAL)?NO LMP:N/A HAVE YOU EVER HAD AN STD?NO OCCUPATION: UNEMPLOYED. MARITAL STATUS: . OTHERS AT HOME: SPOUSE, CHILD, OTHER NON-RELATIVE,GRANDKIDS. SCIENTOLOGY [id number] NONDENOMINATIONAL LANGUAGE LANGUAGES SPOKEN:GHANAIAN LEARNING BARRIERS / SPECIAL NEEDS BARRIERS TO LEARNING?NO HEARING IMPAIRED?NO VISION IMPAIRED?NO READINESS TO LEARN?YES LEARNING PREFERENCES?NO LEARNING CAPABILITIES PRESENT?YES PAIN CLINIC PFS, CLERGY, PUBLIC HEALTH REFERRALS PFS REFERRAL NEEDED?NO CLERGY REFERRAL NEEDED?NO PUBLIC HEALTH REFERRAL NEEDED?NO WAS THE PROVIDER NOTIFIED OF ANY PERTINENT INFO?YES REVIEWED BY: BUBBA. PATIENT: ____. ADVANCED DIRECTIVES HEALTH CARE PROXY?NO WOULD YOU LIKE MORE INFORMATION?NO TRAVEL OUTSIDE US: DENIES. HOSPITALIZATION/MAJOR DIAGNOSTIC PROCEDURE SEE ABOVE SURGERY CHILD REVIEW OF SYSTEMS CONSTITUTIONAL: ANY CHANGE IN YOUR MEDICAL CONDITION? NO . CHILLS NO . FEVER NO . INFECTION: DO YOU HAVE NEW INFECTIONS? NO . DO YOU HAVE HISTORY OF MRSA? NO . MUSCULOSKELETAL: ANY NEW PATTERNS OF PAIN OR NUMBNESS? NO . GASTROENTEROLOGY: ANY NEW CHANGE IN BOWEL CONTROL? NO . GENITOURINARY: ANY NEW CHANGE IN BLADDER CONTROL? NO . IS THERE A CHANCE YOU COULD BE ? NO . HEMATOLOGY/LYMPH: DO YOU TAKE ANY BLOOD THINNERS? (FOR EXAMPLE- COUMADIN, PLAVIX, AGGRENOX, PLATEL, PRADAXA, OR XARELTO) NO . WHEN WAS YOUR LAST DOSE? DATE: TIME: . NEUROLOGY: HAVE YOU FALLEN IN THE PAST 6 MONTHS? NO . ANY NEW EXTREMITY NUMBNESS OR WEAKNESS? NO . CARDIOLOGY: DO YOU HAVE A PACEMAKER OR DEFIBRILLATOR? NO . RESPIRATORY: HAVE YOU BEEN SICK IN THE PAST WEEK? NO . FEVER NO . FLU LIKE SYMPTOMS? NO . COUGH NO . INTEGUMENTARY: DO YOU HAVE ANY RASHES OR OPEN SORES? NO . ALLERGIC/IMMUNO: ARE YOU ALLERGIC TO SHELLFISH OR IV DYE? NO . ANY NEW ALLERGIES? NO . PSYCHIATRIC: DO YOU HAVE THOUGHTS OF HURTING YOURSELF OR SOMEONE ELSE? NO . ARE YOU ABUSED, NEGLECTED, OR IN AN UNSAFE ENVIRONMENT? NO . ENDOCRINOLOGY: ARE YOU DIABETIC? NO . OTHER: DO YOU NEED ANY PRESCRIPTIONS? YES, GABAPENTIN, NUCYNTA . IF YES, PLEASE LIST: ____ . ANY NEW PROBLEMS WITH YOUR MEDICATIONS? NO . WHEN DID YOU LAST EAT? 9:30AM . WHEN DID YOU LAST DRINK? 1:20PM . WHAT DID YOU LAST DRINK? WATER . NAME OF PERSON DRIVING YOU HOME? ____ . DO YOU HAVE ANY OTHER QUESTIONS OR CONCERNS NO . REVIEWED BY: PROVIDER: JERRY TEE MD . VITAL SIGNS WT 198.0 LBS, HT 65 IN, BMI 32.95 INDEX, BP 106/53 MM HG, HR 73 /MIN, RR 16 /MIN, TEMP 98.2 F, OXYGEN SAT % 94%, SAFE IN ENV? (Y/N) Y, NA INITIALS TL 1358, REVIEWED BY: JAMES Sommers AWARE OF BP-TL. EXAMINATION : PATIENT IS ALERT O X 3 AND COOPERATIVE. PATIENT IS ABLE TO ABDUCT HER UPPER EXTREMITIES TO THE SHOULDER LEVEL. PATIENT HAS TENDERNESS AND HYPERPATHIA IN THE RIGHT AND LEFT SHOULDERS AND ELBOWS. PATIENT HAS TENDERNESS IN THE RIGHT AND LEFT SHOULDER WITH BANDS OF TISSUES, RESTRICTION OF MOVEMENT, AND PRESENCE OF TRIGGER POINTS. PATIENT HAS TENDERNESS ON THE SCARS IN THE RIGHT AND LEFT SHOULDER AND LEFT ELBOW. ASSESSMENTS PAIN IN RIGHT SHOULDER - M25.511 (PRIMARY) PAIN IN LEFT SHOULDER - M25.512 PAIN IN RIGHT ELBOW - M25.521 PAIN IN LEFT ELBOW - M25.522 MYALGIA - M79.1 TREATMENT PAIN IN RIGHT SHOULDER NOTES: WE DISCUSSED SEVERAL ISSUES WITH MRS. FORBES'S PAIN MANAGEMENT CASE. MRS. FORBES WILL CONTINUE WITH THE SAME MEDICATION REGIME BEFORE. PATIENT WILL USE THE NEURONTIN FOR THE NEUROPATHIC PAIN DOWN THE ARM AND THE NUCYNTA FOR THE SOMATIC PAIN. PATIENT DENIES ABUSE OF ANY MEDICATION, DENIES USE OF ILLEGAL SUBSTANCES, AND STATES THAT SHE IS ONLY USING THE MEDICATION FOR PAIN MANAGEMENT. URINE TOXICOLOGY REPORT DONE ON 05/12/16 SHOWS CONSISTENT RESULTS WITH THE PATIENT'S MEDICATION LIST. WE DISCUSSED MOVING FORWARD WITH TRIGGER POINTS INJECTIONS TO AID WITH MUSCLE SPASMS AND TIGHTNESS IN THE SHOULDER AREAS. WE DISCUSSED THE RISKS, BENENFITS, AND ALTNERATIVES OF THE INJECTION AND THE PATIENT WOULD LIKE TO PROCEED AT THIS TIME. INSTRUCTIONS WERE GIVEN, QUESTIONS WERE ANSWERED, PATIENT REPORTS UNDERSTANDING AND AGREES WITH THE PLAN. I, MELVI HAMILTON, DOCUMENTED THE ABOVE INFORMATION ACTING A SCRIBE FOR DR. TEE. I HAVE REVIEWED THE ABOVE DOCUMENT, WRITTEN BY MELVI PERALTA AND I VERIFY THAT IT IS ACCURATE. OTHERS REFILL NEURONTIN CAPSULE, 300 MG, 1 CAPSULE, ORALLY FOR PAIN, FOUR TIMES DAILY MDD4, 30 DAY(S), 120, REFILLS 2 REFILL NUCYNTA TABLET, 50 MG, 1 TABLET, ORALLY, EVERY 6 HRS NEEDED FOR PAIN- MDD 3, 30 DAY(S), 80, REFILLS 0 PROCEDURES PN WORKMANS' COMP OPINION IN YOUR OPINION, WAS THE INCIDENT THAT THE PATIENT DESCRIBED THE COMPETENT MEDICAL CAUSE OF THIS INJURY/ILLNESS? YES ARE THE PATIENT'S COMPLAINTS CONSISTENT WITH HIS/HER HISTORY OF THE INJURY/ILLNESS? YES IS THE PATIENT'S HISTORY OF THE INJURY/ILLNESS CONSISTENT WITH YOUR OBJECTIVE FINDING? YES WHAT IS THE PERCENTAGE OF TEMPORARY IMPAIRMENT? TOTAL = 100% IS THE PATIENT WORKING? NO DOCTOR ON SITE: JERRY BRICE MD PROCEDURE CODES FA211 ESTABILISHED PATIENT [facility] CHARGE G8427 DOC MEDS VERIFIED W/PT OR RE G8730 PAIN ASSESS POS TOOL F/U PLAN DOC DISPOSITION & COMMUNICATION FOLLOW UP 3 WEEKS ELECTRONICALLY SIGNED BY JERRY TEE MD ON 08/20/2016 AT 06:59 PM EDT DISCLAIMER : THIS IS A VISIT SUMMARY EXTRACTED FROM THE [employer] CHART. IT IS NOT A COPY OF THE [employer] PROGRESS NOTE. REILLY
== END ==
LOC: M PAIN 14:00
PROVIDERS: ATTEND Anesthesiology
DX: G89.29 Other chronic pain (principal); M25.511 Pain in right shoulder; M25.512 Pain in left shoulder; M25.521 Pain in right elbow; M25.522 Pain in left elbow; M79.1 Myalgia; I10 Essential (primary) hypertension; F41.9 Anxiety disorder, unspecified; F32.9 Major depressive disorder, single episode, unspecified; Z79.891 Long term (current) use of opiate analgesic; Z79.899 Other long term (current) drug therapy; Z87.891 Personal history of nicotine dependence

== ENCOUNTER → 2016-09-21 | Outpatient (CLI) | payer OTHER ==
[~2016-09-21] MED LIST: BUSP15TA47; ESTR2TA; FLUO40CA; GABA-282; LEVO125T4; LISINOPRIL-HCTZ; OXYB10TA; OXYB5TAB10; PRAVASTATIN; ROPI1TAB; TRAZ-136
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
== END ==
LOC: M PAIN 15:40
PROVIDERS: ATTEND Anesthesiology
DX: G89.29 Other chronic pain (principal); M79.1 Myalgia; I10 Essential (primary) hypertension; F41.9 Anxiety disorder, unspecified; F32.9 Major depressive disorder, single episode, unspecified; M25.511 Pain in right shoulder; M25.512 Pain in left shoulder; M25.521 Pain in right elbow; M25.522 Pain in left elbow; Z87.891 Personal history of nicotine dependence; Z79.899 Other long term (current) drug therapy; Z79.891 Long term (current) use of opiate analgesic

== ENCOUNTER → 2016-09-23 | Outpatient (CLI) | payer OTHER ==
[~2016-09-23] MED LIST changes: +BUPIVACAINE HCL 0.25% 10 ML VIAL As Ordered ONE; +BUPIVACAINE HCL 0.25% 30 ML VIAL As Ordered ONE; +TRIAMCINOLONE ACETONIDE SUSP 40 MG/ML VIAL (J3301) As Ordered ONE; +diazePAM 5 MG TAB As Ordered ONE; +oxyCODONE 5MG TAB As Ordered ONE
--- NOTE | 2016-10-04 23:04 | ECWPNPC ---
PATIENT NAME: TAHMINA FORBES : 1970 GENDER: FEMALE VISIT DATE: 09/23/2016 DISCHARGE DATE: 09/23/16 171 VISIT LOCKED DATE TIME: PHYSICIAN: JERRY TEE RESOURCE: JERRY TEE REASON FOR APPOINTMENT 1. TPI VICTOR MANUEL SHOULDERS (BRING HER BACK MARY) HISTORY OF PRESENT ILLNESS FALL RISK SCREENING: SCREENING :NO FALLS IN THE PAST YEAR PAIN SCREENING: PATIENT HAS A COMPLAINT OF ACUTE OR CHRONIC PAIN :YES CURRENT MEDICATIONS TAKING NEURONTIN 300 MG CAPSULE 1 CAPSULE ORALLY FOR PAIN FOUR TIMES DAILY MDD4, NOTES: 09/23/161099 TAKING LISINOPRIL-HYDROCHLOROTHIAZIDE 10-12.5 MG TABLET 1 TABLET ORALLY DAILY, NOTES: 09/23/16 07 TAKING LEVOTHYROXINE SODIUM 125 MCG TABLET 1 TABLET ON AN EMPTY STOMACH IN THE MORNING ORALLY ONCE A DAY, NOTES: 09/23/16699 TAKING ROPINIROLE HCL 1 MG TABLET 1 TAB ORALLY BEFORE BEDTIME, NOTES: 09/22/161999 TAKING FLUOXETINE HCL 40 MG CAPSULE 1 CAPSULE IN THE MORNING ORALLY ONCE A DAY, NOTES: 09/23/16699 TAKING ESTRACE 2 MG TABLET 1 TABLET ORALLY DAILY, NOTES: 09/23/16699 TAKING BUSPIRONE HCL 15 MG TABLET 1 TABLET ORALLY TWICE A DAY, NOTES: 09/23/16699 TAKING TRAZODONE HCL 100 MG TABLET 1 TABLET AT BEDTIME ORALLY ONCE A DAY PRN, NOTES: 09/22/161999 TAKING PRAVASTATIN SODIUM 40 MG TABLET 1 TABLET ORALLY ONCE A DAY, NOTES: 09/23/16699 TAKING OXYBUTYNIN CHLORIDE 5 MG TABLET 1 TABLET ORALLY 3X A DAY, NOTES: 09/23/161099 TAKING NUCYNTA 50 MG TABLET 1 TABLET ORALLY EVERY 6 HRS NEEDED FOR PAIN- MDD 3, NOTES: 09/22/161999 MEDICATION LIST REVIEWED AND RECONCILED WITH THE PATIENT PAST MEDICAL HISTORY HYPERTENTION ANXIETY DEPRESSION BILAT. SHOULDER AND ELBOW PAIN ALLERGIES N.K.D.A. REVIEW OF SYSTEMS REVIEWED BY: PROVIDER: . CONSTITUTIONAL: ANY CHANGE IN YOUR MEDICAL CONDITION? NO . CHILLS NO . FEVER NO . INFECTION: DO YOU HAVE NEW INFECTIONS? NO . DO YOU HAVE HISTORY OF MRSA? NO . MUSCULOSKELETAL: ANY NEW PATTERNS OF PAIN OR NUMBNESS? NO . SYTEMIC LUPUS NO . GASTROENTEROLOGY: ANY NEW CHANGE IN BOWEL CONTROL? NO . BARRETTS ESOPHAGUS NO . CIRRHOSIS NO . HEPATITIS NO . LIVER FAILURE NO . ACID REFLUX NO . UNEXPLAINED WEIGHT LOSS NO . GENITOURINARY: ANY NEW CHANGE IN BLADDER CONTROL? NO . IS THERE A CHANCE YOU COULD BE ? NO . HEMATOLOGY/LYMPH: DO YOU TAKE ANY BLOOD THINNERS? (FOR EXAMPLE- COUMADIN, PLAVIX, AGGRENOX, PLATEL, PRADAXA, OR XARELTO) NO . WHEN WAS YOUR LAST DOSE? DATE: TIME: . LOW PLATELET COUNT NO . SICKLE CELL DISEASE NO . VON WILLIEBRANDS NO . FACTOR V LEIDEN NO . THALLASEMIA NO . ANEMIA NO . EASY BRUISING NO . NEUROLOGY: HAVE YOU FALLEN IN THE PAST 6 MONTHS? NO . ANY NEW EXTREMITY NUMBNESS OR WEAKNESS? NO . HEAD INJURY NO . DEMENTIA NO . CEREBRAL PALSY NO . MULTIPLE SCLEROSIS NO . DIZZINESS NO . HEADACHE NO . STROKES NO . VERTIGO NO . CARDIOLOGY: DO YOU HAVE A PACEMAKER OR DEFIBRILLATOR? NO . ANGINA NO . HEART ATTACK NO . HEART SURGERY NO . CONGESTIVE HEART FAILURE/FLUID OVERLOAD NO . CHEST PAIN NO . HIGH BLOOD PRESSURE NO . IRREGULAR HEART BEAT NO . RESPIRATORY: HAVE YOU BEEN SICK IN THE PAST WEEK? NO . FEVER NO . FLU LIKE SYMPTOMS? NO . CPAP NO . BYPAP NO . ASTHMA NO . EMPHYSEMA NO . CHRONIC LUNG DISEASES NO . SHORTNESS OF BREATH ON EXERTION NO . COUGH NO . SNORING NO . INTEGUMENTARY: DO YOU HAVE ANY RASHES OR OPEN SORES? NO . ALLERGIC/IMMUNO: ARE YOU ALLERGIC TO SHELLFISH OR IV DYE? NO . ANY NEW ALLERGIES? NO . PSYCHIATRIC: DO YOU HAVE THOUGHTS OF HURTING YOURSELF OR SOMEONE ELSE? NO . ARE YOU ABUSED, NEGLECTED, OR IN AN UNSAFE ENVIRONMENT? NO . ENDOCRINOLOGY: ARE YOU DIABETIC? NO . THYROID DISORDER NO . OTHER: DO YOU NEED ANY PRESCRIPTIONS? NO . IF YES, PLEASE LIST: ____ . ANY NEW PROBLEMS WITH YOUR MEDICATIONS? NO . WHEN DID YOU LAST EAT? ____09/23/16 1030 . WHEN DID YOU LAST DRINK? ____09/23/16 1400 . WHAT DID YOU LAST DRINK? ____DIET PEPSI . NAME OF PERSON DRIVING YOU HOME? ____RON ANDREI . DO YOU HAVE ANY OTHER QUESTIONS OR CONCERNS NO . VITAL SIGNS WT 195 LBS, HT 65 IN, BMI 32.45 INDEX, BP 118/61 MM HG, HR 68 /MIN, RR 18 /MIN, TEMP 98.6 F, OXYGEN SAT % 95%, SAFE IN ENV? (Y/N) YES, NA INITIALS TR 1533, REVIEWED BY: LAS. GODINEZ MYALGIA - M79.1 (PRIMARY) TREATMENT OTHERS NOTES: PATIENT EDUCATION WAS PRINTED,TRIGGER POINT INJECTION: YOUR EXPERIENCE MATERIAL WAS PRINTED. PROCEDURES PN TRIGGER POINT INJECTION WITH STEROIDS PRE PROCEDURE DIAGNOSIS 1. MYALGIA 2. PAIN AT BILATERAL SHOULDER AREA POST PROCEDURE DIAGNOSIS 1. MYALGIA 2. PAIN AT BILATERAL SHOULDER AREA PROCEDURE TRIGGER POINT INJECTION AT BILATERAL SHOULDER AREA SURGEON DR. JERRY TEE JUNIOR WEB DESIGNER NONE ANESTHESIA LOCAL PRE PROCEDURE NOTE THE PATIENT HAS A HISTORY OF CHRONIC PAIN AT THE RIGHT AND LEFT SHOULDER AREA. I EVALUATE THE PATIENT AND REVIEWED THE CHART. THERE IS EVIDENCE OF BANDS OF TISSUE WITH RESTRICTION OF MOVEMENT AND PRESENCE OF TRIGGER POINT AT THE AFFECTED AREA. I WENT OVER THE RISKS, ALTERNATIVES, AND BENEFITS ASSOCIATED WITH THIS PROCEDURE. THE PATIENT WOULD LIKE TO PROCEED AND GIVE CONSENT TO PERFORMED THE PROCEDURE. THE PATIENT DENIES UNEXPLAINABLE WEIGHT LOSS, FEVER, CHILLS, OR NEW CHANGES IN URINARY OR BOWEL CONTROL DESCRIPTION OF PROCEDURE THE PATIENT WAS BROUGHT TO THE PROCEDURE ROOM AND PLACED IN THE SITTING POSITION. THE AREA WAS CLEANED WITH ALCOHOL. THE PROCEDURE WAS DONE USING ASEPTIC STERILE TECHNIQUE. I CHECKED LATERALITY AND THE LEVEL WHERE THE PROCEDURE WAS GOING TO BE PERFORMED WITH THE PATIENT AND THE SUPPORTING STAFF AT THE MOMENT OF THE TIME OUT IN THE PROCEDURE ROOM. USING A 25-GAUGE NEEDLE, TRIGGER POINTS WERE INJECTED AT THE RIGHT AND LEFT SHOULDER AREA WITH A TOTAL OF 40 ML OF BUPIVACAINE 0.25% AND KENALOG 40 MG. THERE WAS NO EVIDENCE OF BLOOD, PARESTHESIA OR CEREBROSPINAL FLUID DURING THE PROCEDURE. THE PATIENT WAS SENT TO THE RECOVERY ROOM. THE PATIENT WAS MOVING THE EXTREMITIES AND DOING WELL. THERE WAS NO COMPLICATION DURING THE PROCEDURE POST PROCEDURE NOTE THE PATIENT WILL BE SEEN IN A FOLLOW UP IN THE NEXT FEW WEEKS. INSTRUCTIONS WERE GIVEN, QUESTIONS WERE ANSWERED, AND THE PATIENT EXPRESSED UNDERSTANDING AND AGREES WITH THE PLAN. I, MELVI HAMILTON, DOCUMENTED THE ABOVE INFORMATION ACTING A SCRIBE FOR DR. TEE. I HAVE REVIEWED THE ABOVE DOCUMENT, WRITTEN BY MELVI PERALTA AND I VERIFY THAT IT IS ACCURATE PN WORKMANS' COMP OPINION IN YOUR OPINION, WAS THE INCIDENT THAT THE PATIENT DESCRIBED THE COMPETENT MEDICAL CAUSE OF THIS INJURY/ILLNESS? YES ARE THE PATIENT'S COMPLAINTS CONSISTENT WITH HIS/HER HISTORY OF THE INJURY/ILLNESS? YES IS THE PATIENT'S HISTORY OF THE INJURY/ILLNESS CONSISTENT WITH YOUR OBJECTIVE FINDING? YES WHAT IS THE PERCENTAGE OF TEMPORARY IMPAIRMENT? TOTAL = 100% IS THE PATIENT WORKING? NO DOCTOR ON SITE: JERRY BRICE MD PREVENTIVE MEDICINE TRIGGER POINTS DISCUSSED AND GAVE PT PRE PROCEDURE CARE INFO WITH PT EXPRESSIG UNDERSTANDING. PROCEDURE CODES 13072 INJ TRIGGER POINT 1/2 MUSCL DISPOSITION & COMMUNICATION FOLLOW UP 3 WEEKS ELECTRONICALLY SIGNED BY JERRY TEE MD ON 10/04/2016 AT 08:44 PM EDT DISCLAIMER : THIS IS A VISIT SUMMARY EXTRACTED FROM THE [employer] CHART. IT IS NOT A COPY OF THE [employer] PROGRESS NOTE. REILLY
== END ==
LOC: M PAIN 16:20
PROVIDERS: ATTEND Anesthesiology
DX: G89.29 Other chronic pain (principal); M79.1 Myalgia; M25.511 Pain in right shoulder; M25.512 Pain in left shoulder; Z79.899 Other long term (current) drug therapy; Z79.891 Long term (current) use of opiate analgesic
CPT/HCPCS: 20552; J3301

== ENCOUNTER → 2016-10-14 | Outpatient (CLI) | payer OTHER ==
[~2016-10-14] MED LIST changes: -BUPIVACAINE HCL 0.25% 10 ML VIAL As Ordered ONE; -BUPIVACAINE HCL 0.25% 30 ML VIAL As Ordered ONE; -TRIAMCINOLONE ACETONIDE SUSP 40 MG/ML VIAL (J3301) As Ordered ONE; -diazePAM 5 MG TAB As Ordered ONE; -oxyCODONE 5MG TAB As Ordered ONE
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
== END ==
LOC: M PAIN 16:20
PROVIDERS: ATTEND Anesthesiology
DX: G89.29 Other chronic pain (principal); M25.511 Pain in right shoulder; M25.512 Pain in left shoulder; M25.521 Pain in right elbow; M79.1 Myalgia; I10 Essential (primary) hypertension; F41.9 Anxiety disorder, unspecified; F32.9 Major depressive disorder, single episode, unspecified; Z79.899 Other long term (current) drug therapy

== ENCOUNTER 2016-10-26 07:50 | Emergency (ER) | payer OTHER ==
[~2016-10-26] VITALS: Ht 160 cm; Wt 90.9 kg
[2016-10-26] MEDS ORDERED: PRAVASTATIN (08:13)
[2016-10-26] MEDS ORDERED: LISINOPRIL-HCTZ (08:13)
[2016-10-26] MEDS ORDERED: BUSP15TA47 (08:13)
[2016-10-26] MEDS ORDERED: OXYB5TAB10 (08:13)
[2016-10-26] MEDS ORDERED: LEVO125T4 (08:13)
[2016-10-26] MEDS ORDERED: FLUO40CA (08:13)
[2016-10-26] MEDS ORDERED: ROPI1TAB (08:13)
[2016-10-26] MEDS ORDERED: GABA-282 (08:13)
[2016-10-26] MEDS ORDERED: ESTR2TA (08:13)
[2016-10-26] MEDS ORDERED: OXYB10TA (08:13)
[2016-10-26] MEDS ORDERED: TRAZ-136 (08:13)
[2016-10-26 08:52] LABS: BASO # 0.1 K/mm3 (0.0-0.2); EOS # 0.2 K/mm3 (0.0-0.50); EOS % 2.8 % (0.0-3.0); LARGE UNSTAINED CELL # 0.1 K/mm3 (0.0-0.4); LARGE UNSTAINED CELL % 0.9 % (0.0-4.0); LYMPH # 1.2 K/mm3 (1.5-4.5); LYMPH % 18.2 % (24.0-44.0); MEAN CORPUSCULAR HEMOGLOBIN 31.3 pg (27.0-33.0); MEAN CORPUSCULAR HGB CONC 33.6 g/dl (32.0-36.5); MONO # 0.3 K/mm3 (0.0-0.8); MONO % 4.6 % (0.0-5.0); NEUTROPHILS # 4.4 K/mm3 (1.8-7.7); NEUTROPHILS % 72.5 % (36.0-66.0); PLATELET COUNT, AUTOMATED 141 k/mm3 (150-450); RED CELL DISTRIBUTION WIDTH 13.6 % (11.5-14.5); WHITE BLOOD COUNT 6.1 K/mm3 (4.0-10.0)
[2016-10-26 09:07] LABS: ANION GAP 6 MEQ/L (8-16); BLOOD UREA NITROGEN 15 MG/DL (7-18); CALCIUM LEVEL 8.6 MG/DL (8.5-10.1); CARBON DIOXIDE LEVEL 28 MEQ/L (21-32); CHLORIDE LEVEL 101 MEQ/L (98-107); GLOMERULAR FILTRATION RATE > 60.0 (>58); GLUCOSE, FASTING 125 MG/DL (70-105); POTASSIUM SERUM 3.6 MEQ/L (3.5-5.1); SODIUM LEVEL 135 MEQ/L (136-145)
--- NOTE | 2016-10-26 09:11 | REP ---
Portable chest, single AP view, patient sitting: Comparisons 06/01/2016. The lung diaz are clear. Cardiac size is normal. The maria de jesus, mediastinum, and bony thorax are unremarkable. Impression: Negative portable chest. Sign taking Signed by Colin Murphy MD 10/26/2016 09:02 A
[2016-10-26 09:35] VITALS: BP 109/58
--- NOTE | 2016-10-27 11:16 | ECGEPIP ---
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
== END 2016-10-26 09:48 | disposition home or self-care (01) ==
LOC: M ED 07:50
DX: R07.89 Other chest pain (principal); I10 Essential (primary) hypertension; E78.5 Hyperlipidemia, unspecified; Z79.899 Other long term (current) drug therapy

== ENCOUNTER → 2016-12-23 | Outpatient (REF) | payer OTHER ==
[2016-12-23 10:03] LABS: BASO % 0.9 % (0.0-1.0); EOS # 0.1 K/mm3 (0.0-0.50); EOS % 2.1 % (0.0-3.0); LARGE UNSTAINED CELL # 0.1 K/mm3 (0.0-0.4); LARGE UNSTAINED CELL % 1.4 % (0.0-4.0); MEAN CORPUSCULAR HEMOGLOBIN 32.5 pg (27.0-33.0); MEAN CORPUSCULAR VOLUME 90.3 fl (80.0-96.0); MONO # 0.3 K/mm3 (0.0-0.8); MONO % 5.4 % (0.0-5.0); NEUTROPHILS # 4.3 K/mm3 (1.8-7.7); NEUTROPHILS % 73.2 % (36.0-66.0); PLATELET COUNT, AUTOMATED 195 k/mm3 (150-450); RED CELL DISTRIBUTION WIDTH 13.1 % (11.5-14.5); WHITE BLOOD COUNT 5.8 K/mm3 (4.0-10.0)
[2016-12-23 10:24] LABS: ERYTHROCYTE SEDIMENTATION RATE 21 mm/hr (0-20)
[2016-12-23 10:46] LABS: ALBUMIN 3.5 GM/DL (3.2-5.2); ALBUMIN/GLOBULIN RATIO 1.09 (1.00-1.93); ALKALINE PHOSPHATASE 62 U/L (45-117); ALT/SGPT 17 U/L (12-78); ANION GAP 9 MEQ/L (8-16); AST/SGOT 11 U/L (15-37); BILIRUBIN,TOTAL 0.2 MG/DL (0.2-1.0); BLOOD UREA NITROGEN 13 MG/DL (7-18); CALCIUM LEVEL 8.5 MG/DL (8.5-10.1); CARBON DIOXIDE LEVEL 27 MEQ/L (21-32); CHLORIDE LEVEL 105 MEQ/L (98-107); CREATININE FOR GFR 0.75 MG/DL (0.55-1.02); GLOMERULAR FILTRATION RATE > 60.0 (>58); GLUCOSE, FASTING 96 MG/DL (70-105); POTASSIUM SERUM 4.1 MEQ/L (3.5-5.1); SODIUM LEVEL 141 MEQ/L (136-145); TOTAL PROTEIN 6.7 GM/DL (6.4-8.2)
[2016-12-26 10:36] LABS: FOLATE 9.6 NG/ML; VITAMIN B12 LEVEL 430 PG/ML
[2016-12-27 12:37] LABS: ALBUMIN 3.91 GM/DL (3.29-5.55); ALBUMIN % 58.3 % (55.8-66.1); GAMMA GLOBULIN % 11.8 % (11.1-18.8)
[2016-12-28 08:57] LABS: Lyme Disease IgG/IgM Antibodie <0.91 ISR (0.00-0.90); Lyme Disease IgM Ab Quantitati <0.80 index (0.00-0.79); SJOGREN'S ANTI SS-A <0.2 AI (0.0-0.9); SJOGREN'S ANTI SS-B <0.2 AI (0.0-0.9); VITAMIN E LEVEL 9.7 mg/L (5.3-16.8)
== END ==
LOC: M LAB REF 09:47
PROVIDERS: ATTEND Psychiatry & Neurology Neurology
DX: G62.9 Polyneuropathy, unspecified (principal)

== ENCOUNTER → 2016-12-23 | Outpatient (CLI) | payer OTHER ==
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
== END ==
LOC: M PAIN 13:15
PROVIDERS: ATTEND Anesthesiology
DX: G89.29 Other chronic pain (principal); M25.511 Pain in right shoulder; M25.512 Pain in left shoulder; M25.529 Pain in unspecified elbow; M79.1 Myalgia; I10 Essential (primary) hypertension; F41.9 Anxiety disorder, unspecified; F32.9 Major depressive disorder, single episode, unspecified; Z79.891 Long term (current) use of opiate analgesic; Z79.899 Other long term (current) drug therapy; Z87.891 Personal history of nicotine dependence

== ENCOUNTER → 2016-12-29 | Outpatient (CLI) | payer OTHER ==
--- NOTE | 2016-12-29 11:00 | REP ---
LEFT HIP, TWO VIEWS: HISTORY: Pain. COMPARISON: 06/17/2016. There is no acute fracture or dislocation. The joint space is normal in appearance. IMPRESSION: There is no acute fracture or dislocation. Signed by David Hutson MD 12/29/2016 11:20 A
== END ==
LOC: M WUC 09:37
PROVIDERS: ATTEND Psychiatry & Neurology Neurology
DX: M25.552 Pain in left hip (principal)

== ENCOUNTER → 2017-03-15 | Outpatient (CLI) | payer OTHER ==
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
== END ==
LOC: M PAIN 14:00
PROVIDERS: ATTEND Anesthesiology
DX: M79.1 Myalgia (principal); G89.29 Other chronic pain; Z79.899 Other long term (current) drug therapy; I10 Essential (primary) hypertension; Z87.891 Personal history of nicotine dependence

== ENCOUNTER → 2017-04-24 | Outpatient (CLI) | payer OTHER | LOC: M PAIN 13:00 | DX: M79.1 Myalgia (principal); M25.511 Pain in right shoulder; M25.512 Pain in left shoulder; M25.521 Pain in right elbow; M25.522 Pain in left elbow; G89.29 Other chronic pain; I10 Essential (primary) hypertension; F32.9 Major depressive disorder, single episode, unspecified; F41.9 Anxiety disorder, unspecified; Z79.899 Other long term (current) drug therapy; Z79.891 Long term (current) use of opiate analgesic; Z87.891 Personal history of nicotine dependence | CPT/HCPCS: G0463 ==

== ENCOUNTER 2017-05-30 09:32 | Emergency (ER) | payer OTHER ==
[2017-05-30] MEDS: KETOROLAC 60 MG/2 ML VIAL (J1885) IM (11:08)
== END 2017-05-30 12:09 | disposition home or self-care (01) ==
LOC: M ED 09:32
DX: M70.62 Trochanteric bursitis, left hip (principal); M54.5 Low back pain; Z79.899 Other long term (current) drug therapy
CPT/HCPCS: J1885

== ENCOUNTER → 2017-06-27 | Outpatient (CLI) | payer OTHER | LOC: M PAIN 13:00 | DX: M79.1 Myalgia (principal); M25.522 Pain in left elbow; M25.521 Pain in right elbow; M25.512 Pain in left shoulder; M25.511 Pain in right shoulder; I10 Essential (primary) hypertension; F41.9 Anxiety disorder, unspecified; F32.9 Major depressive disorder, single episode, unspecified; Z79.899 Other long term (current) drug therapy; Z79.891 Long term (current) use of opiate analgesic | CPT/HCPCS: G0463 ==

== ENCOUNTER → 2017-07-03 | Outpatient (REF) | payer OTHER | LOC: M SFHCLERA 09:44 | DX: J06.9 Acute upper respiratory infection, unspecified (principal) ==

== ENCOUNTER 2017-07-05 10:24 | Emergency (ER) | payer OTHER ==
[2017-07-05] MEDS: IBUPROFEN 600 MG TAB PO (12:12)
[2017-07-05] MEDS: IPRATROPIUM 0.5MG/ALBUTEROL 2.5MG INH SOL UD 3ML (DUONEB)(J7620) NEB (12:18)
== END 2017-07-05 13:33 | disposition home or self-care (01) ==
LOC: M ED 10:24
DX: J45.901 Unspecified asthma with (acute) exacerbation (principal); J20.9 Acute bronchitis, unspecified; I10 Essential (primary) hypertension; Z87.891 Personal history of nicotine dependence; Z79.899 Other long term (current) drug therapy
CPT/HCPCS: 71046

== ENCOUNTER → 2017-08-08 | Outpatient (CLI) | payer OTHER | LOC: M PAIN 13:00 | DX: M79.1 Myalgia (principal); M25.511 Pain in right shoulder; M25.512 Pain in left shoulder; M25.529 Pain in unspecified elbow; G89.29 Other chronic pain; I10 Essential (primary) hypertension; F41.9 Anxiety disorder, unspecified; F32.9 Major depressive disorder, single episode, unspecified; Z79.899 Other long term (current) drug therapy; Z87.891 Personal history of nicotine dependence | CPT/HCPCS: G0463 ==

== ENCOUNTER → 2017-08-15 | Outpatient (CLI) | payer OTHER ==
[2017-08-15 12:29] LABS: BASO # 0.1 10^3/uL (0.0-0.2); BASO % 0.7 % (0.0-1.0); EOS # 0.2 10^3/uL (0.0-0.50); EOS % 2.5 % (0.0-3.0); IMMATURE GRANULOCYTE % 0.3 % (0-3.0); LYMPH # 1.5 10^3/uL (1.5-4.5); LYMPH % 20.4 % (24.0-44.0); MEAN CORPUSCULAR HEMOGLOBIN 30.4 pg (27.0-33.0); MEAN CORPUSCULAR HGB CONC 33.3 g/dl (32.0-36.5); MEAN CORPUSCULAR VOLUME 91.3 fl (80.0-96.0); MONO # 0.6 10^3/uL (0.0-0.8); MONO % 7.6 % (0.0-5.0); NEUTROPHILS # 5.1 10^3/uL (1.8-7.7); NEUTROPHILS % 68.5 % (36.0-66.0); PLATELET COUNT, AUTOMATED 162 10^3/uL (150-450); RED CELL DISTRIBUTION WIDTH 13.1 % (11.5-14.5); WHITE BLOOD COUNT 7.5 10^3/uL (4.0-10.0)
[2017-08-15 12:46] LABS: TOTAL 25(OH) VITAMIN D 17.3 NG/ML (30.0-100.0)
[2017-08-15 12:48] LABS: ESTIMATED AVERAGE GLUCOSE 128 MG/DL (60-110); HEMOGLOBIN A1c 6.1 %
[2017-08-15 12:53] LABS: ALBUMIN 3.8 GM/DL (3.2-5.2); ALBUMIN/GLOBULIN RATIO 1.23 (1.00-1.93); ALKALINE PHOSPHATASE 88 U/L (45-117); ALT/SGPT 27 U/L (12-78); ANION GAP 4 MEQ/L (8-16); AST/SGOT 13 U/L (7-37); BILIRUBIN,TOTAL 0.2 MG/DL (0.2-1.0); BLOOD UREA NITROGEN 12 MG/DL (7-18); CALCIUM LEVEL 8.4 MG/DL (8.5-10.1); CARBON DIOXIDE LEVEL 31 MEQ/L (21-32); CHLORIDE LEVEL 105 MEQ/L (98-107); CHOLESTEROL LEVEL 189 MG/DL (<200); CHOLESTEROL RISK RATIO 2.907 (<5); CREATININE FOR GFR 0.74 MG/DL (0.55-1.30); FREE T4 0.89 NG/DL (0.76-1.46); GLOMERULAR FILTRATION RATE > 60.0 (>58); GLUCOSE, FASTING 90 MG/DL (70-100); HDL CHOLESTEROL 65 MG/DL (>40); LDL CHOLESTEROL 105.6 MG/DL (<100); NON-HDL-C 124 MG/DL; SODIUM LEVEL 140 MEQ/L (136-145); TOTAL PROTEIN 6.9 GM/DL (6.4-8.2); TRIGLYCERIDES LEVEL 92 MG/DL (<150)
[2017-08-15 13:14] LABS: CREATININE, URINE 72.1 MG/DL; MALB URINE SIEMENS < 5.0 MG/L; MAU/CREAT RATIO 6.9 MCG/MG (0.0-30.0)
== END ==
LOC: M WUC 09:27
DX: E55.9 Vitamin D deficiency, unspecified (principal); G89.29 Other chronic pain

== ENCOUNTER → 2017-09-26 | Outpatient (CLI) | payer OTHER | LOC: M PAIN 13:00 | DX: M79.1 Myalgia (principal); M25.512 Pain in left shoulder; M25.511 Pain in right shoulder; G89.29 Other chronic pain; I10 Essential (primary) hypertension; F41.9 Anxiety disorder, unspecified; F32.9 Major depressive disorder, single episode, unspecified; Z79.899 Other long term (current) drug therapy; Z87.891 Personal history of nicotine dependence | CPT/HCPCS: G0463 ==

== ENCOUNTER → 2017-11-10 | Outpatient (CLI) | payer OTHER | LOC: M PAIN 13:00 | DX: M79.1 Myalgia (principal); M25.511 Pain in right shoulder; M25.512 Pain in left shoulder; M25.521 Pain in right elbow; M25.522 Pain in left elbow; I10 Essential (primary) hypertension; F41.9 Anxiety disorder, unspecified; F32.9 Major depressive disorder, single episode, unspecified; Z87.891 Personal history of nicotine dependence; Z79.899 Other long term (current) drug therapy | CPT/HCPCS: G0463 ==

== ENCOUNTER → 2017-12-21 | Outpatient (CLI) | payer OTHER | LOC: M PAIN 14:15 | DX: M79.1 Myalgia (principal); M25.511 Pain in right shoulder; M25.512 Pain in left shoulder; M25.521 Pain in right elbow; M25.522 Pain in left elbow; I10 Essential (primary) hypertension; F32.9 Major depressive disorder, single episode, unspecified; F41.9 Anxiety disorder, unspecified; Z79.899 Other long term (current) drug therapy; Z90.710 Acquired absence of both cervix and uterus; Z87.891 Personal history of nicotine dependence | CPT/HCPCS: G0463 ==

== ENCOUNTER 2018-01-17 16:33 | Emergency (ER) | payer OTHER ==
[2018-01-17 18:28] LABS: BASO # 0.1 10^3/uL (0.0-0.2); BASO % 0.8 % (0.0-1.0); EOS # 0.2 10^3/uL (0.0-0.50); EOS % 2.9 % (0.0-3.0); HEMATOCRIT 38.4 % (36.0-47.0); HEMOGLOBIN 12.9 g/dl (12.0-15.5); IMMATURE GRANULOCYTE % 0.3 % (0-3.0); LYMPH % 32.2 % (24.0-44.0); MEAN CORPUSCULAR HEMOGLOBIN 30.9 pg (27.0-33.0); MEAN CORPUSCULAR HGB CONC 33.6 g/dl (32.0-36.5); MEAN CORPUSCULAR VOLUME 91.9 fl (80.0-96.0); MONO # 0.6 10^3/uL (0.0-0.8); NEUTROPHILS # 3.3 10^3/uL (1.8-7.7); NEUTROPHILS % 53.8 % (36.0-66.0); PLATELET COUNT, AUTOMATED 148 10^3/uL (150-450); RED BLOOD COUNT 4.18 10^6/uL (4.00-5.40); RED CELL DISTRIBUTION WIDTH 13.2 % (11.5-14.5); WHITE BLOOD COUNT 6.1 10^3/uL (4.0-10.0)
[2018-01-17 18:46] LABS: ALBUMIN 3.6 GM/DL (3.2-5.2); ALBUMIN/GLOBULIN RATIO 1.13 (1.00-1.93); ALKALINE PHOSPHATASE 68 U/L (45-117); ALT/SGPT 33 U/L (12-78); ANION GAP 6 MEQ/L (8-16); AST/SGOT 20 U/L (7-37); BILIRUBIN,DIRECT < 0.1 MG/DL (0.0-0.2); BILIRUBIN,TOTAL 0.2 MG/DL (0.2-1.0); BLOOD UREA NITROGEN 12 MG/DL (7-18); CALCIUM LEVEL 8.4 MG/DL (8.5-10.1); CARBON DIOXIDE LEVEL 33 MEQ/L (21-32); CHLORIDE LEVEL 101 MEQ/L (98-107); CK-MB VALUE MASS < 1.0 NG/ML (<3.6); CPK CREATINE PHOSPHOKINASE 104 U/L (26-192); CREATININE FOR GFR 0.96 MG/DL (0.55-1.30); GLOMERULAR FILTRATION RATE > 60.0 (>58); GLUCOSE, FASTING 88 MG/DL (70-100); MB/CK RELATIVE INDEX 0.96 (< OR =4); POTASSIUM SERUM 3.9 MEQ/L (3.5-5.1); SODIUM LEVEL 140 MEQ/L (136-145); TOTAL PROTEIN 6.8 GM/DL (6.4-8.2); TROPONIN I < 0.02 NG/ML (< 0.10)
[2018-01-17 19:10] LABS: FREE T4 1.03 NG/DL (0.76-1.46)
== END 2018-01-17 20:05 | disposition home or self-care (01) ==
LOC: M ED 16:33
DX: T50.901A Poisoning by unspecified drugs, medicaments and biological substances, accidental (unintentional), initial encounter (principal); R40.0 Somnolence; I10 Essential (primary) hypertension
CPT/HCPCS: 93005

== ENCOUNTER → 2018-01-23 | Outpatient (CLI) | payer OTHER | LOC: M PAIN 09:00 | DX: M79.18 Myalgia, other site (principal); M25.511 Pain in right shoulder; M25.512 Pain in left shoulder; I10 Essential (primary) hypertension; F41.9 Anxiety disorder, unspecified; F32.9 Major depressive disorder, single episode, unspecified; Z87.891 Personal history of nicotine dependence; Z79.899 Other long term (current) drug therapy | CPT/HCPCS: G0463 ==

== ENCOUNTER → 2018-03-19 | Outpatient (CLI) | payer OTHER | LOC: M PAIN 08:45 | DX: M25.511 Pain in right shoulder (principal); M25.512 Pain in left shoulder; M25.521 Pain in right elbow; M25.522 Pain in left elbow; G89.29 Other chronic pain; I10 Essential (primary) hypertension; F41.9 Anxiety disorder, unspecified; F32.9 Major depressive disorder, single episode, unspecified; E66.01 Morbid (severe) obesity due to excess calories; Z68.38 Body mass index [BMI] 38.0-38.9, adult; Z79.899 Other long term (current) drug therapy; Z87.891 Personal history of nicotine dependence | CPT/HCPCS: G0463 ==

== ENCOUNTER 2018-06-22 12:31 | Day surgery (SDC) | payer OTHER ==
[~2018-06-22] VITALS: Ht 162.6 cm; Wt 100.2 kg
[~2018-06-22 12:31] MED LIST changes: -BUSP15TA47; +BUSP15TA47 PO; +CYCL10TA PO; +ERGO500014 PO; -ESTR2TA; +ESTR2TAB2 PO; -FLUO40CA; +FLUO40CA PO; -GABA-282; +GABA-843 PO; +GABA600T4 PO; +IBUP-1022 PO; -LEVO125T4; +LEVO125T4 PO; +LISI10TA2 PO; +LISINOPRIL HCTZ; +LYRI200C PO; +NAPR-885 PO; +NS 1,000 ML IV ONE; +NUCY50TA19 PO; -OXYB10TA; +OXYB10TA PO; +PRAV40TA2 PO; +PRED10TA2 PO; +PREG100CA PO; +ROBA500T PO; -ROPI1TAB; +ROPI1TAB PO; -TRAZ-136; +TRAZ-163 PO; +ZITHTAB PO
--- NOTE | 2018-06-22 14:10 | ROOR ---
Patient Name: Tanya Mcmahon Procedure Date: 06/22/2018 1:57 PM Date of : 1970 Age: 47 Room: [facility] Gender: Female Note Status: Finalized Procedure: Upper GI endoscopy Indications: Epigastric abdominal pain, Diarrhea Providers: Chalo COLLADO MD Referring MD: ILSA Ramires Requesting Provider: Medicines: Monitored Anesthesia Care Complications: No immediate complications. Procedure: Pre-Anesthesia Assessment: - The heart rate, respiratory rate, oxygen saturations, blood pressure, adequacy of pulmonary ventilation, and response to care were monitored throughout the procedure. The Endoscope was introduced through the mouth, and advanced to the third part of duodenum. The upper GI endoscopy was accomplished without difficulty. The patient tolerated the procedure well. Findings: The esophagus was normal. The stomach was normal. The examined duodenum was normal. Biopsies for histology were taken with a cold forceps in the second portion of the duodenum and in the third portion of the duodenum for evaluation of celiac disease. Impression: - Normal esophagus. - Normal stomach. - Normal examined duodenum. - Biopsies were taken with a cold forceps for evaluation of celiac disease. Recommendation: - Stop Dicyclomine, start Hyoscyamine. Script sent to your pharmacy. - Telephone endoscopist for pathology results in 2 weeks. Chalo Collado MD Chalo COLLADO MD 06/22/2018 2:10:06 PM Electronically signed by Chalo COLLADO MD Number of Addenda: 0 Note Initiated On: 06/22/2018 1:57 PM Estimated Blood Loss: Estimated blood loss: none.
[2018-06-22] MEDS ORDERED: PROPOFOL 500 MG/50 ML VIAL As Ordered ONE (14:11)
[2018-06-22] MEDS ORDERED: fentaNYL 100 MCG/2 ML INJECTION (J3010) As Ordered ONE (14:11)
[2018-06-22] MEDS ORDERED: LIDOCAINE 2% INJ 100 MG/5 ML SDV (FOR ANES.) As Ordered ONE (14:11)
--- NOTE | 2018-06-22 14:34 | ROOR ---
Patient Name: Tanya Mcmahon Procedure Date: 06/22/2018 1:58 PM Date of : 1970 Age: 47 Room: [facility] Gender: Female Note Status: Finalized Procedure: Colonoscopy Indications: Generalized abdominal pain, Suspected irritable bowel syndrome, Change in bowel habits Providers: Chalo COLLADO MD Referring MD: ILSA Ramires Requesting Provider: Medicines: Monitored Anesthesia Care Complications: No immediate complications. Procedure: Pre-Anesthesia Assessment: - The heart rate, respiratory rate, oxygen saturations, blood pressure, adequacy of pulmonary ventilation, and response to care were monitored throughout the procedure. The Colonoscope was introduced through the anus and advanced to 5 cm into the ileum. The colonoscopy was performed without difficulty. The patient tolerated the procedure well. The quality of the bowel preparation was good. Findings: The perianal and digital rectal examinations were normal. A 4 mm polyp was found in the sigmoid colon. The polyp was sessile. The polyp was removed with a cold snare. Resection and retrieval were complete. Mild sigmoid diverticulosis and small internal hemorrhoids. The exam was otherwise normal throughout the examined colon. The terminal ileum appeared normal. Biopsies for histology were taken with a cold forceps for evaluation of microscopic colitis. Impression: - One 4 mm polyp in the sigmoid colon, removed with a cold snare. Resected and retrieved. - Mild sigmoid diverticulosis and small internal hemorrhoids. - The colon is otherwise normal. - The terminal ileum was normal. - Biopsies were taken with a cold forceps for evaluation of microscopic colitis. - (Irritable Bowel Syndrome/IBS suspected.) Recommendation: - Discontinue Bentyl (dicyclomine). - Use Levbid 0.375 mg Extended Tabs 1 tab PO every 8-12 hours. - (the script was sent to your pharmacy on file) - Telephone endoscopist for pathology results in 2 weeks. Chalo Collado MD Chalo COLLADO MD 06/22/2018 2:33:32 PM Electronically signed by Chalo COLLADO MD Number of Addenda: 0 Note Initiated On: 06/22/2018 1:58 PM Estimated Blood Loss: Estimated blood loss: none.
[2018-06-22 14:50] VITALS: BP 158/71
== END 2018-06-22 15:08 | disposition home or self-care (01) ==
LOC: M OPP 12:31
PROVIDERS: ATTEND Internal Medicine Gastroenterology
DX: D12.5 Benign neoplasm of sigmoid colon (principal); R10.84 Generalized abdominal pain; R19.4 Change in bowel habit; R19.7 Diarrhea, unspecified; R10.13 Epigastric pain; K64.8 Other hemorrhoids; K57.30 Diverticulosis of large intestine without perforation or abscess without bleeding; Z79.899 Other long term (current) drug therapy
CPT/HCPCS: 43239; 45380; 45385; 88305; J3010

== ENCOUNTER → 2018-07-16 | Outpatient (CLI) | payer OTHER ==
[~2018-07-16] MED LIST changes: -ERGO500014 PO; -NS 1,000 ML IV ONE; +VITA500045 PO
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
== END ==
LOC: M PAIN 14:15
PROVIDERS: ATTEND Nurse Practitioner Family
DX: M25.511 Pain in right shoulder (principal); M25.512 Pain in left shoulder; M25.521 Pain in right elbow; M25.522 Pain in left elbow; G89.29 Other chronic pain; I10 Essential (primary) hypertension; Z86.59 Personal history of other mental and behavioral disorders; Z87.891 Personal history of nicotine dependence; Z79.891 Long term (current) use of opiate analgesic; Z79.899 Other long term (current) drug therapy

== ENCOUNTER → 2018-09-10 | Outpatient (CLI) | payer OTHER ==
--- NOTE | 2018-09-26 01:25 | ECWPNPC ---
PATIENT NAME: TAHMINA FORBES : 1970 GENDER: FEMALE VISIT DATE: 09/10/2018 DISCHARGE DATE: 09/10/18 1451 VISIT LOCKED DATE TIME: PHYSICIAN: CINTHYA MARTINEZ RESOURCE: CINTHYA MARTINEZ REASON FOR APPOINTMENT 1. W/C, CBP, VICTOR MANUEL ELBOW, VICTOR MANUEL SHOULDER WC REQUESTING UTOX HISTORY OF PRESENT ILLNESS HISTORY OF PRESENT ILLNESS: PAIN THE PATIENT DESCRIBES THE PAIN... THE PATIENT DESCRIBES THE PAIN... THE PATIENT DESCRIBES THE PAIN... THE PATIENT DESCRIBES THE PAIN... THE PATIENT DESCRIBES THE PAIN... THE PATIENT DESCRIBES THE PAIN... THE PATIENT DESCRIBES THE PAIN... THE PATIENT DESCRIBES THE PAIN... THE PATIENT DESCRIBES THE PAIN... THE PATIENT DESCRIBES THE PAIN... THE PATIENT DESCRIBES THE PAIN... 48 YEAR OLD FEMALE PATIENT WITH HISTORY OF CHRONIC RIGHT AND LEFT SHOULDER AND ELBOW PAIN. PATIENT DESCRIBES THE PAIN ACHING, TENDER, AND SORE, AND HAVING IT ALL THE TIME. CURRENTLY TAKING LYRICA 300MG BID.CAN NOT TOLERATE TAKING MEDICATIONS DURING DAYTIME WHEN SHE IS WORKING DUE TO FATIGUE. 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 PATIENT STATES THAT SHE HAD RIGHT SHOULDER SURGERY ON 01/29/2014, LEFT SHOULDER SURGERY ON 09/29/2014, RIGHT ELBOW SURGERY ON 05/07/2015, AND LEFT ELBOW SURGERY ON 09/08/2015.DOI . DISCUSSED MEDICATION OPTIONS. FALL RISK SCREENING: SCREENING :NO FALLS REPORTED IN THE LAST YEAR CURRENT MEDICATIONS TAKING LISINOPRIL-HYDROCHLOROTHIAZIDE 10-12.5 MG TABLET 1 TABLET ORALLY DAILY TAKING LEVOTHYROXINE SODIUM 150 MCG TABLET 1 TABLET ON AN EMPTY STOMACH IN THE MORNING ORALLY ONCE A DAY TAKING ROPINIROLE HCL 1 MG TABLET 1 TAB ORALLY BEFORE BEDTIME TAKING FLUOXETINE HCL 40 MG CAPSULE 1 CAPSULE IN THE MORNING ORALLY ONCE A DAY TAKING ESTRACE 2 MG TABLET 1 TABLET ORALLY DAILY TAKING BUSPIRONE HCL 15 MG TABLET 1 TABLET ORALLY THREE TIMES DAILY TAKING TRAZODONE HCL 100 MG TABLET 1 TABLET AT BEDTIME ORALLY ONCE A DAY PRN TAKING PRAVASTATIN SODIUM 40 MG TABLET 1 TABLET ORALLY ONCE A DAY TAKING LYRICA 300 MG CAPSULE 1 CAP ORALLY BID MDD2 TAKING OXYBUTYNIN CHLORIDE ER 10MG TABLET EXTENDED RELEASE 24 HOUR 1 TABLET ORALLY ONCE A DAY TAKING NUCYNTA 50 MG TABLET 1 TABLET ORALLY FOR PAIN Q8H PRN MDD3 MEDICATION LIST REVIEWED AND RECONCILED WITH THE PATIENT PAST MEDICAL HISTORY HYPERTENTION ANXIETY DEPRESSION BILAT. SHOULDER AND ELBOW PAIN HIP AND BACK PAIN IBS ALLERGIES N.K.D.A. SURGICAL HISTORY UMBILICAL HERNIA REPAIR CARPAL TUNNEL RELEASE-BILAT. BILAT. SHOULDER ARTHROSCOPY ROTATOR CUFF REPAIR TOTAL HYSTERECTOMY 2007 BILAT. ELBOW RELEASE FAMILY HISTORY FATHER: ALIVE 67 YRS, DIAGNOSED WITH HEART DISEASE MOTHER: 64 YRS, SMOKER,ALS, EMPHYSEMA,LUNG CANCER 2 SISTER(S) - HEALTHY. 1DAUGHTER(S) - HEALTHY. MOM- ALS, EMPHYSEMA, LUNG CA. SOCIAL HISTORY GENERAL: TOBACCO USE ARE YOU A:FORMER SMOKER FORMER SMOKER.QUIT 9 YEARS AGO HOW LONG HAS IT BEEN SINCE YOU LAST SMOKED?> 10 YEARS HIV / HEP-C SCREENING HIV TEST OFFERED TO PATIENT:YES DATE OFFERED:05/10/2017 TEST ACCEPTED:NO REASON:PATIENT DECLINED OTHERS AT HOME: SPOUSE, CHILD, OTHER NON-RELATIVE,GRANDKIDS. LANGUAGE LANGUAGES SPOKEN:FRENCH RECREATIONAL DRUG USE DRUG USE?NO LEARNING BARRIERS / SPECIAL NEEDS BARRIERS TO LEARNING?NO HEARING IMPAIRED?NO VISION IMPAIRED?NO READINESS TO LEARN?YES LEARNING PREFERENCES?NO LEARNING CAPABILITIES PRESENT?YES PAIN CLINIC PFS, CLERGY, PUBLIC HEALTH REFERRALS PFS REFERRAL NEEDED?NO CLERGY REFERRAL NEEDED?NO PUBLIC HEALTH REFERRAL NEEDED?NO WAS THE PROVIDER NOTIFIED OF ANY PERTINENT INFO?YES HAS THE PATIENT BEEN EDUCATED REGARDING HIS/HER PLAN OF CARE?YES HAS THE PATIENT BEEN EDUCATED REGARDING PAIN, THE RISK FOR PAIN, THE IMPORTANCE OF EFFECTIVE PAIN MANAGEMENT, AND THE PAIN ASSESSMENT PROCESS?YES LATEX QUESTIONNAIRE LATEX ALLERGY : HAVE YOU EVER DEVELOPED ANY TYPE OF REACTION AFTER HANDLING LATEX PRODUCTS SUCH RUBBER GLOVES, CONDOMS, DIAPHRAGMS, BALLOONS, SOCKS, OR UNDERWEAR?NO LATEX ALLERGY : HAVE YOU EVER DEVELOPED ANY TYPE OF REACTION DURING OR AFTER DENTAL APPOINTMENT, VAGINAL/RECTAL EXAMINATION, SURGICAL PROCEDURE, OR ANY OTHER EXPOSURE?NO LATEX RISK : HAVE YOU EVER HAD ANY DIFFICULTY BREATHING OR HIVES AFTER EATING OR HANDLING ANY FRUITS, OR VEGETABLES; SUCH KIWI, BANANAS, STONE FRUITS, OR CHESTNUTSNO LATEX RISK : DO YOU HAVE A PREVIOUS PERSONAL HISTORY OF MORE THAN NINE SURGERIES, SPINA BIFIDA, OR REPEATED CATHERTIZATIONS? NO LATEX RISK : ARE YOU FREQUENTLY EXPOSED TO LATEX PRODUCTS IN YOUR OCCUPATION?NO DATE ASKED : 07/16/2018 CAFFEINE CAFFEINE USE?YES 2-3 SODAS DAILY ADVANCE DIRECTIVE ADVANCE DIRECTIVE DISCUSSED WITH PATIENT:NO PT DOES NOT WANT INFORMATION AT THIS TIME DECLINES ASSISTANCE WITH PAPERWORK 09/10/18 TEMPLE [id number] SCIENTOLOGIST MARITAL STATUS: . ALCOHOL SCREENING DID YOU HAVE A DRINK CONTAINING ALCOHOL IN THE PAST YEAR?NO POINTS0 INTERPRETATIONNEGATIVE OCCUPATION: UNEMPLOYED. SEXUAL HX HAD SEX IN THE LAST 12 MONTHS (VAGINAL, ORAL, OR ANAL)?NO HAVE YOU EVER HAD AN STD?NO LMP:N/A REVIEWED WITH PT 11/10/17 1330 LASREVIEWED WITH PATIENT 12/21/17 1452 JSREVIEWED WITH PT 01/23/18 0922 BVREVIEWED WITH PT 09/10/18 1401 BV. HOSPITALIZATION/MAJOR DIAGNOSTIC PROCEDURE SEE ABOVE SURGERY CHILD REVIEW OF SYSTEMS REVIEWED BY: PROVIDER: CINTHYA MCKNIGHT . CONSTITUTIONAL: ANY CHANGE IN YOUR MEDICAL CONDITION? NO . CHILLS NO . FEVER NO . INFECTION: DO YOU HAVE NEW INFECTIONS? NO . DO YOU HAVE HISTORY OF MRSA? NO . MUSCULOSKELETAL: ANY NEW PATTERNS OF PAIN OR NUMBNESS? YES, PT HAS HAD INCREASE IN INTENSITY OF BILATERAL SHOULDER PAIN OVER THE PAST FEW WEEKS. 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 . GASTROENTEROLOGY: ANY NEW CHANGE IN BOWEL CONTROL? NO . GENITOURINARY: ANY NEW CHANGE IN BLADDER CONTROL? NO . IS THERE A CHANCE YOU COULD BE ? NO . HEMATOLOGY/LYMPH: DO YOU TAKE ANY BLOOD THINNERS? (FOR EXAMPLE- COUMADIN, PLAVIX, AGGRENOX, PLATEL, PRADAXA, OR XARELTO) NO . WHEN WAS YOUR LAST DOSE? DATE: TIME: . NEUROLOGY: HAVE YOU FALLEN IN THE PAST 12 MONTHS? NO . ANY NEW EXTREMITY NUMBNESS OR WEAKNESS? NO . CARDIOLOGY: DO YOU HAVE A PACEMAKER OR DEFIBRILLATOR? NO . RESPIRATORY: HAVE YOU BEEN SICK IN THE PAST WEEK? NO . FEVER NO . FLU LIKE SYMPTOMS? NO . COUGH NO . INTEGUMENTARY: DO YOU HAVE ANY RASHES OR OPEN SORES? NO . ALLERGIC/IMMUNO: ARE YOU ALLERGIC TO IV DYE? NO . ANY NEW ALLERGIES? NO . PSYCHIATRIC: DO YOU HAVE THOUGHTS OF HURTING YOURSELF OR SOMEONE ELSE? NO . ARE YOU ABUSED, NEGLECTED, OR IN AN UNSAFE ENVIRONMENT? NO . ENDOCRINOLOGY: ARE YOU DIABETIC? NO . OTHER: DO YOU NEED ANY PRESCRIPTIONS? NO . IF YES, PLEASE LIST: ____ . ANY NEW PROBLEMS WITH YOUR MEDICATIONS? NO . WHEN DID YOU LAST EAT? ____ . WHEN DID YOU LAST DRINK? ____ . WHAT DID YOU LAST DRINK? ____ . NAME OF PERSON DRIVING YOU HOME? ____ . DO YOU HAVE ANY OTHER QUESTIONS OR CONCERNS NO . VITAL SIGNS WT 218.0 LBS, HT 63 IN, BMI 38.61 INDEX, BP 117/67 MM HG, HR 91 /MIN, RR 16 /MIN, TEMP 97.1 F, OXYGEN SAT % 92%, NA INITIALS AW 1342, REVIEWED BY: BV. EXAMINATION GENERAL EXAMINATION: GENERAL APPEARANCE:ALERT,NO ACUTE DISTRESS. PSYCHAFFECT NORMAL. LUNGS:LUNG VALLE ARE CLEAR TO AUSCULTATION BILATERALLY. GOOD MOVEMENT OF AIR. HEART:S1, S2 IN A REGULAR RATE AND RHYTHM. NO SIGNIFICANT MURMURS, RUBS OR GALLOPS NOTED. CERVICALMUSCLE STRENGTH TESTING 3/5 UPPER EXTREMETIES. 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 + FOR PAIN WITH PALPATION OF CERVICAL PARASPINALS. TRIGGER POINTS OVER BILATERAL TRAPEZIUS L>R TRAPEZIUS.RESTRICTION OF MOVEMENT NOTED IN THIS AREA.. ASSESSMENTS PAIN IN RIGHT SHOULDER - M25.511 PAIN IN LEFT SHOULDER - M25.512 PAIN IN RIGHT ELBOW - M25.521 PAIN IN LEFT ELBOW - M25.522 TREATMENT PAIN IN RIGHT SHOULDER REFILL LYRICA CAPSULE, 300 MG, 1 CAP, ORALLY, BID MDD2, 30 DAYS, 60, REFILLS 2 REFILL NUCYNTA TABLET, 50 MG, 1 TABLET, ORALLY FOR PAIN, Q8H PRN MDD3, 30 DAYS, 90, REFILLS 0 START NUCYNTA ER TABLET EXTENDED RELEASE 12 HOUR, 150 MG, 1 TABLET, ORALLY, BEFORE BEDTIME MDD1, 30 DAYS, 30, REFILLS 0 NOTES: ISTOP REGISTRY REVIEWED AND DEMONSTRATES COMPLLIANCE. BRINGS IN MEDICATIONS WHICH IS APPROPRIATE FOR WHAT WAS DISPENSED. RECENT URINE TOXICOLOGY REVIEWED. NO UNAUTHORIZED MEDICATIONS. NO ILLICIT SUBSTANCES AND PRESCRIBED MEDICATIONS WERE PRESENT. URINE TOX TODAY, [facility] NARCOTIC AGREEMENT WAS REVIEWED UPDATED AND SIGNED TODAY BY THE PATIENT. SEE ATTACHED DOCUMENT FOR FULL DETAILS; SPECIFIC ISSUES WERE REVIEWED: 1) KEEP PAIN MEDS IN THEIR ORIGINAL BOTTLES AND ANY WEEKLY PLANNERS ARE TO BE BROUGHT TO THE PAIN CENTER AT EVERY VISIT. 2) THE PATIENT IS NOT TO INCREASE DOSING OR TIMING OF THEIR PAIN MEDICATION WITHOUT SPECIFIC DIRECTION OF THEIR PAIN CENTERPROVIDER (NOT ER OR OTHER PROVIDERS). 3) ALL PAIN MEDS ARE TO BE KEPT SECURED, IN A LOCKED BOX. 4) NO PAIN MEDS ARE TO BE SHARED WITH ANY OTHER PERSON FOR ANY REASON. 5) NO PAIN MEDS MAY BE TAKEN FROM ANY FRIENDS OR RELATIVES FOR ANY REASON 6) NO MEDS OR SUBSTANCES WHICH ARE NOT LEGAL ARE TO BE USED- NO MARIJUANA, NO COCAINE, AMPHETAMINES, HEROIN, OR OTHERS ARE EVER TO BE USED. 7)URINE TESTING IS DONE TO ACCOUNT FOR MEDS AND SUBSTANCES BEING TAKEN AND WILL BE DONE RANDOMLY., RISKS AND BENEFITS OF NARCOTIC/OPIOD MEDICATIONS WERE REVIEWED WITH PATIENT - THIS INCLUDES BUT IS NOT LIMITED TO RISK OF DEPENDANCE/DEVELOPMENT OF ADDICTION, MOOD DISTURBANCE AND DEPRESSION, OSTEOPOROSIS, HORMONAL AND LABIDAL CHANGES, RESPIRATORY DEPRESSION AND . PATIENT IS ADVISED NOT TO DRIVE OR DRINK ALCOHOL WHILE ON THESE MEDICATIONS. PROCEDURES PN WORKMANS' COMP OPINION IN YOUR OPINION, WAS THE INCIDENT THAT THE PATIENT DESCRIBED THE COMPETENT MEDICAL CAUSE OF THIS INJURY/ILLNESS? YES ARE THE PATIENT'S COMPLAINTS CONSISTENT WITH HIS/HER HISTORY OF THE INJURY/ILLNESS? YES IS THE PATIENT'S HISTORY OF THE INJURY/ILLNESS CONSISTENT WITH YOUR OBJECTIVE FINDING? YES WHAT IS THE PERCENTAGE OF TEMPORARY IMPAIRMENT? MODERATE TO MARKED = 66.7% IS THE PATIENT WORKING? YES DOCTOR ON SITE: JERRY BRICE MD PREVENTIVE MEDICINE PAIN CLINIC TEACHING: MEDICATIONS PT DECLINES INFO ON NUCYNTA ER. VERBAL EDUCATION GIVEN. PT VERBALIZES UNDERSTANDING OF VERBAL EDUCATION. MEREDITH HUNT 09/10/2018 2:53:17 PM > . PROCEDURE CODES FA211 ESTABILISHED PATIENT [facility] FACILITY CHARGE DISPOSITION & COMMUNICATION FOLLOW UP 2 MONTHS (REASON: W/C MED MGMNT) ELECTRONICALLY SIGNED BY ROXANNA LAL ON 09/25/2018 AT 09:35 AM EDT DISCLAIMER : THIS IS A VISIT SUMMARY EXTRACTED FROM THE [employer] CHART. IT IS NOT A COPY OF THE [facility] [employer] PROGRESS NOTE. REILLY
== END ==
LOC: M PAIN 13:45
PROVIDERS: ATTEND Nurse Practitioner Family
DX: M25.511 Pain in right shoulder (principal); M25.512 Pain in left shoulder; M25.521 Pain in right elbow; M25.522 Pain in left elbow; I10 Essential (primary) hypertension; Z86.59 Personal history of other mental and behavioral disorders; Z87.891 Personal history of nicotine dependence; Z79.899 Other long term (current) drug therapy

== ENCOUNTER → 2018-09-29 | Outpatient (CLI) | payer OTHER ==
[2018-09-29 08:38] LABS: BASO # 0.1 10^3/uL (0.0-0.2); BASO % 1.4 % (0.0-1.0); EOS # 0.2 10^3/uL (0.0-0.50); EOS % 3.7 % (0.0-3.0); HEMATOCRIT 38.4 % (36.0-47.0); HEMOGLOBIN 12.9 g/dl (12.0-15.5); LYMPH # 1.7 10^3/uL (1.5-4.5); LYMPH % 33.1 % (24.0-44.0); MEAN CORPUSCULAR HEMOGLOBIN 30.2 pg (27.0-33.0); MEAN CORPUSCULAR HGB CONC 33.6 g/dl (32.0-36.5); MEAN CORPUSCULAR VOLUME 89.9 fl (80.0-96.0); MONO # 0.4 10^3/uL (0.0-0.8); MONO % 8.1 % (0.0-5.0); NEUTROPHILS # 2.7 10^3/uL (1.8-7.7); NEUTROPHILS % 53.5 % (36.0-66.0); PLATELET COUNT, AUTOMATED 114 10^3/uL (150-450); RED BLOOD COUNT 4.27 10^6/uL (4.00-5.40); WHITE BLOOD COUNT 5.1 10^3/uL (4.0-10.0)
[2018-09-29 09:10] LABS: ALBUMIN 3.4 GM/DL (3.2-5.2); ALT/SGPT 27 U/L (12-78); BILIRUBIN,TOTAL 0.2 MG/DL (0.2-1.0); BLOOD UREA NITROGEN 13 MG/DL (7-18); CALCIUM LEVEL 8.4 MG/DL (8.5-10.1); CARBON DIOXIDE LEVEL 31 MEQ/L (21-32); CHLORIDE LEVEL 105 MEQ/L (98-107); CHOLESTEROL LEVEL 180 MG/DL (<200); CHOLESTEROL RISK RATIO 3.396 (<5); CREATININE FOR GFR 0.89 MG/DL (0.55-1.30); FREE T4 1.21 NG/DL (0.76-1.46); GLOMERULAR FILTRATION RATE > 60.0 (>51); GLUCOSE, FASTING 106 MG/DL (70-100); HDL CHOLESTEROL 53 MG/DL (>40); LDL CHOLESTEROL 98 MG/DL (<100); NON-HDL-C 127 MG/DL; POTASSIUM SERUM 4.1 MEQ/L (3.5-5.1); SODIUM LEVEL 140 MEQ/L (136-145); THYROID STIMULATING HORMONE 0.039 uIU/ML (0.358-3.740); TOTAL PROTEIN 6.7 GM/DL (6.4-8.2); TRIGLYCERIDES LEVEL 145 MG/DL (<150)
== END ==
LOC: M LAB 08:06
PROVIDERS: ATTEND Physician Assistant Medical
DX: I10 Essential (primary) hypertension (principal); R53.83 Other fatigue; E03.9 Hypothyroidism, unspecified; E78.2 Mixed hyperlipidemia

== ENCOUNTER → 2018-11-20 | Outpatient (CLI) | payer OTHER ==
[~2018-11-20] MED LIST changes: +LISI10TA15 PO; -LISI10TA2 PO; -OXYB10TA PO; +OXYB10TA2 PO
--- NOTE | 2018-12-07 02:52 | ECWPNPC ---
PATIENT NAME: TAHMINA FORBES : 1970 GENDER: FEMALE VISIT DATE: 11/20/2018 DISCHARGE DATE: 11/20/18 1225 VISIT LOCKED DATE TIME: PHYSICIAN: CINTHYA MARTINEZ RESOURCE: CINTHYA MARTINEZ REASON FOR APPOINTMENT 1. W/C MED MGMNT HISTORY OF PRESENT ILLNESS HISTORY OF PRESENT ILLNESS: PAIN THE PATIENT DESCRIBES THE PAIN... THE PATIENT DESCRIBES THE PAIN... THE PATIENT DESCRIBES THE PAIN... THE PATIENT DESCRIBES THE PAIN... THE PATIENT DESCRIBES THE PAIN... THE PATIENT DESCRIBES THE PAIN... THE PATIENT DESCRIBES THE PAIN... THE PATIENT DESCRIBES THE PAIN... THE PATIENT DESCRIBES THE PAIN... THE PATIENT DESCRIBES THE PAIN... THE PATIENT DESCRIBES THE PAIN... THE PATIENT DESCRIBES THE PAIN... 48 YEAR OLD FEMALE PATIENT WITH HISTORY OF CHRONIC RIGHT AND LEFT SHOULDER AND ELBOW PAIN. PATIENT DESCRIBES THE PAIN ACHING, TENDER, AND SORE, AND HAVING IT ALL THE TIME. CURRENTLY TAKING LYRICA 300MG BID,NUCYNTA 50MG Q8H PRN AND NUCYNTA ER 150MG AT HS.REPORTING IMPROVEMENT IN SLEEP AND DAYTIME PAIN CONTROL WITH CURRENT REGIMEN. 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 PATIENT STATES THAT SHE HAD RIGHT SHOULDER SURGERY ON 01/29/2014, LEFT SHOULDER SURGERY ON 09/29/2014, RIGHT ELBOW SURGERY ON 05/07/2015, AND LEFT ELBOW SURGERY ON 09/08/2015.DOI . DISCUSSED MEDICATION OPTIONS. FALL RISK SCREENING: SCREENING :NO FALLS REPORTED IN THE LAST YEAR CURRENT MEDICATIONS TAKING LISINOPRIL-HYDROCHLOROTHIAZIDE 10-12.5 MG TABLET 1 TABLET ORALLY DAILY TAKING LEVOTHYROXINE SODIUM 150 MCG TABLET 1 TABLET ON AN EMPTY STOMACH IN THE MORNING ORALLY ONCE A DAY TAKING ROPINIROLE HCL 1 MG TABLET 1 TAB ORALLY BEFORE BEDTIME TAKING FLUOXETINE HCL 40 MG CAPSULE 1 CAPSULE IN THE MORNING ORALLY ONCE A DAY TAKING ESTRACE 2 MG TABLET 1 TABLET ORALLY DAILY TAKING BUSPIRONE HCL 15 MG TABLET 1 TABLET ORALLY THREE TIMES DAILY TAKING TRAZODONE HCL 100 MG TABLET 1 TABLET AT BEDTIME ORALLY ONCE A DAY PRN TAKING PRAVASTATIN SODIUM 40 MG TABLET 1 TABLET ORALLY ONCE A DAY TAKING LYRICA 300 MG CAPSULE 1 CAP ORALLY BID MDD2 TAKING NUCYNTA ER 150 MG TABLET EXTENDED RELEASE 12 HOUR 1 TABLET ORALLY BEFORE BEDTIME MDD1 TAKING NUCYNTA 50 MG TABLET 1 TABLET ORALLY FOR PAIN Q8H PRN MDD3 TAKING OXYBUTYNIN CHLORIDE ER 10MG TABLET EXTENDED RELEASE 24 HOUR 1 TABLET ORALLY ONCE A DAY MEDICATION LIST REVIEWED AND RECONCILED WITH THE PATIENT PAST MEDICAL HISTORY HYPERTENTION ANXIETY DEPRESSION BILAT. SHOULDER AND ELBOW PAIN HIP AND BACK PAIN IBS HYPOTHYROIDISM ALLERGIES N.K.D.A. SURGICAL HISTORY UMBILICAL HERNIA REPAIR CARPAL TUNNEL RELEASE-BILAT. BILAT. SHOULDER ARTHROSCOPY ROTATOR CUFF REPAIR TOTAL HYSTERECTOMY 2007 BILAT. ELBOW RELEASE FAMILY HISTORY FATHER: ALIVE 67 YRS, DIAGNOSED WITH HEART DISEASE MOTHER: 64 YRS, SMOKER,ALS, EMPHYSEMA,LUNG CANCER 2 SISTER(S) - HEALTHY. 1DAUGHTER(S) - HEALTHY. MOM- ALS, EMPHYSEMA, LUNG CA. SOCIAL HISTORY GENERAL: TOBACCO USE ARE YOU A:FORMER SMOKER FORMER SMOKER.QUIT 9 YEARS AGO HOW LONG HAS IT BEEN SINCE YOU LAST SMOKED?> 10 YEARS HIV / HEP-C SCREENING HIV TEST OFFERED TO PATIENT:YES DATE OFFERED:05/10/2017 TEST ACCEPTED:NO REASON:PATIENT DECLINED OTHERS AT HOME: SPOUSE, CHILD, OTHER NON-RELATIVE,GRANDKIDS. LANGUAGE LANGUAGES SPOKEN:GUYANESE RECREATIONAL DRUG USE DRUG USE?NO LEARNING BARRIERS / SPECIAL NEEDS BARRIERS TO LEARNING?NO HEARING IMPAIRED?NO VISION IMPAIRED?NO READINESS TO LEARN?YES LEARNING PREFERENCES?NO LEARNING CAPABILITIES PRESENT?YES PAIN CLINIC PFS, CLERGY, PUBLIC HEALTH REFERRALS PFS REFERRAL NEEDED?NO CLERGY REFERRAL NEEDED?NO PUBLIC HEALTH REFERRAL NEEDED?NO WAS THE PROVIDER NOTIFIED OF ANY PERTINENT INFO?YES HAS THE PATIENT BEEN EDUCATED REGARDING HIS/HER PLAN OF CARE?YES HAS THE PATIENT BEEN EDUCATED REGARDING PAIN, THE RISK FOR PAIN, THE IMPORTANCE OF EFFECTIVE PAIN MANAGEMENT, AND THE PAIN ASSESSMENT PROCESS?YES LATEX QUESTIONNAIRE LATEX ALLERGY : HAVE YOU EVER DEVELOPED ANY TYPE OF REACTION AFTER HANDLING LATEX PRODUCTS SUCH RUBBER GLOVES, CONDOMS, DIAPHRAGMS, BALLOONS, SOCKS, OR UNDERWEAR?NO LATEX ALLERGY : HAVE YOU EVER DEVELOPED ANY TYPE OF REACTION DURING OR AFTER DENTAL APPOINTMENT, VAGINAL/RECTAL EXAMINATION, SURGICAL PROCEDURE, OR ANY OTHER EXPOSURE?NO LATEX RISK : HAVE YOU EVER HAD ANY DIFFICULTY BREATHING OR HIVES AFTER EATING OR HANDLING ANY FRUITS, OR VEGETABLES; SUCH KIWI, BANANAS, STONE FRUITS, OR CHESTNUTSNO LATEX RISK : DO YOU HAVE A PREVIOUS PERSONAL HISTORY OF MORE THAN NINE SURGERIES, SPINA BIFIDA, OR REPEATED CATHERIZATIONS? NO LATEX RISK : ARE YOU FREQUENTLY EXPOSED TO LATEX PRODUCTS IN YOUR OCCUPATION?NO DATE ASKED : 07/16/2018 CAFFEINE CAFFEINE USE?YES 2-3 SODAS DAILY ADVANCE DIRECTIVE ADVANCE DIRECTIVE DISCUSSED WITH PATIENT:NO PT DOES NOT WANT INFORMATION AT THIS TIME DECLINES ASSISTANCE WITH PAPERWORK 09/10/18 EVANGELICAL [id number] CHRISTIANITY MARITAL STATUS: . ALCOHOL SCREENING DID YOU HAVE A DRINK CONTAINING ALCOHOL IN THE PAST YEAR?NO POINTS0 INTERPRETATIONNEGATIVE OCCUPATION: UNEMPLOYED. SEXUAL HX HAD SEX IN THE LAST 12 MONTHS (VAGINAL, ORAL, OR ANAL)?NO HAVE YOU EVER HAD AN STD?NO LMP:N/A REVIEWED WITH PT 11/10/17 1330 LASREVIEWED WITH PATIENT 12/21/17 1452 JSREVIEWED WITH PT 01/23/18 0922 BVREVIEWED WITH PT 09/10/18 1401 BV. HOSPITALIZATION/MAJOR DIAGNOSTIC PROCEDURE SEE ABOVE SURGERY CHILD REVIEW OF SYSTEMS REVIEWED BY: PROVIDER: CINTHYA MCKNIGHT . CONSTITUTIONAL: ANY CHANGE IN YOUR MEDICAL CONDITION? NO . CHILLS NO . FEVER NO . INFECTION: DO YOU HAVE NEW INFECTIONS? NO . DO YOU HAVE HISTORY OF MRSA? NO . MUSCULOSKELETAL: ANY NEW PATTERNS OF PAIN OR NUMBNESS? NO . GASTROENTEROLOGY: ANY NEW CHANGE IN BOWEL CONTROL? NO . GENITOURINARY: ANY NEW CHANGE IN BLADDER CONTROL? NO . IS THERE A CHANCE YOU COULD BE ? NO . HEMATOLOGY/LYMPH: DO YOU TAKE ANY BLOOD THINNERS? (FOR EXAMPLE- COUMADIN, PLAVIX, AGGRENOX, PLATEL, PRADAXA, OR XARELTO) NO . WHEN WAS YOUR LAST DOSE? DATE: TIME: . NEUROLOGY: HAVE YOU FALLEN IN THE PAST 12 MONTHS? NO . ANY NEW EXTREMITY NUMBNESS OR WEAKNESS? YES LEFT LEG NUMBNESS AND WEAKNESS FOR PAST 6 MONTHS - NOW WORSE . CARDIOLOGY: DO YOU HAVE A PACEMAKER OR DEFIBRILLATOR? NO . RESPIRATORY: HAVE YOU BEEN SICK IN THE PAST WEEK? NO . FEVER NO . FLU LIKE SYMPTOMS? NO . COUGH NO . INTEGUMENTARY: DO YOU HAVE ANY RASHES OR OPEN SORES? NO . ALLERGIC/IMMUNO: ARE YOU ALLERGIC TO IV DYE? NO . ANY NEW ALLERGIES? NO . PSYCHIATRIC: DO YOU HAVE THOUGHTS OF HURTING YOURSELF OR SOMEONE ELSE? NO . ARE YOU ABUSED, NEGLECTED, OR IN AN UNSAFE ENVIRONMENT? NO . ENDOCRINOLOGY: ARE YOU DIABETIC? NO . OTHER: DO YOU NEED ANY PRESCRIPTIONS? NO . IF YES, PLEASE LIST: ____ . ANY NEW PROBLEMS WITH YOUR MEDICATIONS? NO . WHEN DID YOU LAST EAT? ____ . WHEN DID YOU LAST DRINK? ____ . WHAT DID YOU LAST DRINK? ____ . NAME OF PERSON DRIVING YOU HOME? ____ . DO YOU HAVE ANY OTHER QUESTIONS OR CONCERNS YES - IS CBD OIL AN OPTION? . VITAL SIGNS WT 221 LBS, HT 63 IN, BMI 39.14 INDEX, BP 112/65 MM HG, HR 64 /MIN, RR 16 /MIN, TEMP 96.0 F, OXYGEN SAT % 95%, NA INITIALS AW 1136, REVIEWED BY: BRITANY. EXAMINATION GENERAL EXAMINATION: GENERALALERT,NO ACUTE DISTRESS. PSYCHAFFECT NORMAL. LUNGS:LUNG VALLE ARE CLEAR TO AUSCULTATION BILATERALLY. GOOD MOVEMENT OF AIR. HEART:S1, S2 IN A REGULAR RATE AND RHYTHM. NO SIGNIFICANT MURMURS, RUBS OR GALLOPS NOTED. CERVICALMUSCLE STRENGTH TESTING 3/5 UPPER EXTREMETIES. EQAUL OTTER TRAWLER BOATSWAIN STRENGTH BILATERAL HANDS., + FOR PAIN WITH PALPATION OF CERVICAL SPINE. + FOR PAIN WITH PALPATION OF CERVICAL PARASPINALS. TRIGGER POINTS OVER BILATERAL TRAPEZIUS L>R TRAPEZIUS.RESTRICTION OF MOVEMENT NOTED IN THIS AREA.. ASSESSMENTS PAIN IN RIGHT SHOULDER - M25.511 (PRIMARY) PAIN IN LEFT SHOULDER - M25.512 TREATMENT PAIN IN RIGHT SHOULDER REFILL LYRICA CAPSULE, 300 MG, 1 CAP, ORALLY, BID MDD2, 30 DAYS, 60, REFILLS 2 REFILL NUCYNTA ER TABLET EXTENDED RELEASE 12 HOUR, 150 MG, 1 TABLET, ORALLY, BEFORE BEDTIME MDD1, 30 DAYS, 30, REFILLS 0 REFILL NUCYNTA TABLET, 50 MG, 1 TABLET, ORALLY FOR PAIN, Q8H PRN MDD3, 30 DAYS, 90, REFILLS 0 NOTES: ISTOP REGISTRY REVIEWED AND DEMONSTRATES COMPLLIANCE. FORGOT TO BRING IN MEDICATION. RECENT URINE TOXICOLOGY REVIEWED. NO UNAUTHORIZED MEDICATIONS. NO ILLICIT SUBSTANCES AND PRESCRIBED MEDICATIONS WERE PRESENT. , RISKS AND BENEFITS OF NARCOTIC/OPIOD MEDICATIONS WERE REVIEWED WITH PATIENT - THIS INCLUDES BUT IS NOT LIMITED TO RISK OF DEPENDANCE/DEVELOPMENT OF ADDICTION, MOOD DISTURBANCE AND DEPRESSION, OSTEOPOROSIS, HORMONAL AND LABIDAL CHANGES, RESPIRATORY DEPRESSION AND . PATIENT IS ADVISED NOT TO DRIVE OR DRINK ALCOHOL WHILE ON THESE MEDICATIONS W/C TPI BILAT TRAPEZIUS/SHOULDERPT [id number] [id number] SHOULDER ARM STRENGTHENING/SET UP HOME EXCERSISE ROUTINE/WORKMANS COMP REQUEST. PROCEDURES PN WORKMANS' COMP OPINION IN YOUR OPINION, WAS THE INCIDENT THAT THE PATIENT DESCRIBED THE COMPETENT MEDICAL CAUSE OF THIS INJURY/ILLNESS? YES ARE THE PATIENT'S COMPLAINTS CONSISTENT WITH HIS/HER HISTORY OF THE INJURY/ILLNESS? YES IS THE PATIENT'S HISTORY OF THE INJURY/ILLNESS CONSISTENT WITH YOUR OBJECTIVE FINDING? YES WHAT IS THE PERCENTAGE OF TEMPORARY IMPAIRMENT? MODERATE TO MARKED = 66.7% IS THE PATIENT WORKING? YES DOCTOR ON SITE: JERRY BRICE MD PREVENTIVE MEDICINE PAIN CLINIC TEACHING: PROCEDURE TEACHING PRE TRIGGER POINT INJECTIONS INSTRUCTIONS REVIEWED WITH PT. VERBALIZED UNDERSTANDING.. PROCEDURE CODES FA211 ESTABILISHED PATIENT [facility] CHARGE DISPOSITION & COMMUNICATION FOLLOW UP W/C F/U TPI/PT, 2 MONTHS (REASON: W/C TPI BILAT TRAPEZIUS/SHOULDER) ELECTRONICALLY SIGNED BY ROXANNA LAL ON 12/06/2018 AT 11:31 AM EDT DISCLAIMER : THIS IS A VISIT SUMMARY EXTRACTED FROM THE [employer] CHART. IT IS NOT A COPY OF THE [employer] PROGRESS NOTE. REILLY
== END ==
LOC: M PAIN 11:30
PROVIDERS: ATTEND Nurse Practitioner Family
DX: M25.511 Pain in right shoulder (principal); M25.512 Pain in left shoulder; G89.29 Other chronic pain; I10 Essential (primary) hypertension; Z86.59 Personal history of other mental and behavioral disorders; E03.9 Hypothyroidism, unspecified; Z87.891 Personal history of nicotine dependence; Z79.891 Long term (current) use of opiate analgesic; Z79.899 Other long term (current) drug therapy

== ENCOUNTER → 2018-12-10 | Outpatient (REF) | payer OTHER ==
[2018-12-10 17:22] LABS: C REACTIVE PROTEIN QUANTITATIV 1.19 MG/DL (0.00-0.30); RHEUMATOID FACTOR QUANT < 10.0 IU/ML (<15.0)
[2018-12-12 14:15] LABS: ANTINUCLEAR ANTIBODIES DIRECT Negative (Negative)
== END ==
LOC: M LABDRAW1 17:00
PROVIDERS: ATTEND Orthopaedic Surgery
DX: M70.62 Trochanteric bursitis, left hip (principal)

== ENCOUNTER → 2019-01-10 | Outpatient (CLI) | payer OTHER ==
[~2019-01-10] MED LIST changes: +BUPIVACAINE HCL 0.25% 10 ML VIAL As Ordered ONE; +BUPIVACAINE HCL 0.25% 30 ML VIAL As Ordered ONE; +TRIAMCINOLONE ACETONIDE SUSP 40 MG/ML VIAL (J3301) As Ordered ONE; +diazePAM 5 MG TAB As Ordered ONE; +oxyCODONE 5MG TAB As Ordered ONE
--- NOTE | 2019-01-24 01:10 | ECWPNPC ---
PATIENT NAME: TAHMINA FORBES : 1970 GENDER: FEMALE VISIT DATE: 01/10/2019 DISCHARGE DATE: 01/10/19 1432 VISIT LOCKED DATE TIME: PHYSICIAN: JERRY TEE MD RESOURCE: JERRY TEE MD REASON FOR APPOINTMENT 1. W/C TPI BILAT SHOULDER HISTORY OF PRESENT ILLNESS HISTORY OF PRESENT ILLNESS: PAIN THE PATIENT DESCRIBES THE PAIN... FALL RISK SCREENING: SCREENING :NO FALLS REPORTED IN THE LAST YEAR CURRENT MEDICATIONS TAKING LISINOPRIL-HYDROCHLOROTHIAZIDE 10-12.5 MG TABLET 1 TABLET ORALLY DAILY TAKING LEVOTHYROXINE SODIUM 150 MCG TABLET 1 TABLET ON AN EMPTY STOMACH IN THE MORNING ORALLY ONCE A DAY TAKING ROPINIROLE HCL 1 MG TABLET 1 TAB ORALLY BEFORE BEDTIME TAKING FLUOXETINE HCL 40 MG CAPSULE 1 CAPSULE IN THE MORNING ORALLY ONCE A DAY TAKING ESTRACE 2 MG TABLET 1 TABLET ORALLY DAILY TAKING BUSPIRONE HCL 15 MG TABLET 1 TABLET ORALLY THREE TIMES DAILY TAKING TRAZODONE HCL 100 MG TABLET 1 TABLET AT BEDTIME ORALLY ONCE A DAY PRN TAKING PRAVASTATIN SODIUM 40 MG TABLET 1 TABLET ORALLY ONCE A DAY TAKING LYRICA 300 MG CAPSULE 1 CAP ORALLY BID MDD2 TAKING NUCYNTA ER 150 MG TABLET EXTENDED RELEASE 12 HOUR 1 TABLET ORALLY BEFORE BEDTIME MDD1 TAKING NUCYNTA 50 MG TABLET 1 TABLET ORALLY FOR PAIN Q8H PRN MDD3 UNKNOWN OXYBUTYNIN CHLORIDE ER 10 MG TABLET EXTENDED RELEASE 24 HOUR TAKE 1 TABLET BY MOUTH ONCE DAILY MEDICATION LIST REVIEWED AND RECONCILED WITH THE PATIENT PAST MEDICAL HISTORY HYPERTENTION ANXIETY DEPRESSION BILAT. SHOULDER AND ELBOW PAIN HIP AND BACK PAIN IBS HYPOTHYROIDISM ALLERGIES N.K.D.A. SURGICAL HISTORY UMBILICAL HERNIA REPAIR CARPAL TUNNEL RELEASE-BILAT. BILAT. SHOULDER ARTHROSCOPY ROTATOR CUFF REPAIR TOTAL HYSTERECTOMY 2007 BILAT. ELBOW RELEASE FAMILY HISTORY FATHER: ALIVE 67 YRS, DIAGNOSED WITH UNSPECIFIED HEART DISEASE MOTHER: 64 YRS, SMOKER,ALS, EMPHYSEMA,LUNG CANCER 2 SISTER(S) - HEALTHY. 1DAUGHTER(S) - HEALTHY. MOM- ALS, EMPHYSEMA, LUNG CA. SOCIAL HISTORY GENERAL: TOBACCO USE ARE YOU A:FORMER SMOKER FORMER SMOKER.QUIT 9 YEARS AGO HOW LONG HAS IT BEEN SINCE YOU LAST SMOKED?> 10 YEARS HIV / HEP-C SCREENING HIV TEST OFFERED TO PATIENT:YES DATE OFFERED:05/10/2017 TEST ACCEPTED:NO REASON:PATIENT DECLINED OTHERS AT HOME: SPOUSE, CHILD, OTHER NON-RELATIVE,GRANDKIDS. LANGUAGE LANGUAGES SPOKEN:BELARUSIAN RECREATIONAL DRUG USE DRUG USE?NO LEARNING BARRIERS / SPECIAL NEEDS BARRIERS TO LEARNING?NO HEARING IMPAIRED?NO VISION IMPAIRED?NO READINESS TO LEARN?YES LEARNING PREFERENCES?NO LEARNING CAPABILITIES PRESENT?YES PAIN CLINIC PFS, CLERGY, PUBLIC HEALTH REFERRALS PFS REFERRAL NEEDED?NO CLERGY REFERRAL NEEDED?NO PUBLIC HEALTH REFERRAL NEEDED?NO WAS THE PROVIDER NOTIFIED OF ANY PERTINENT INFO?YES HAS THE PATIENT BEEN EDUCATED REGARDING HIS/HER PLAN OF CARE?YES HAS THE PATIENT BEEN EDUCATED REGARDING PAIN, THE RISK FOR PAIN, THE IMPORTANCE OF EFFECTIVE PAIN MANAGEMENT, AND THE PAIN ASSESSMENT PROCESS?YES LATEX QUESTIONNAIRE LATEX ALLERGY : HAVE YOU EVER DEVELOPED ANY TYPE OF REACTION AFTER HANDLING LATEX PRODUCTS SUCH RUBBER GLOVES, CONDOMS, DIAPHRAGMS, BALLOONS, SOCKS, OR UNDERWEAR?NO LATEX ALLERGY : HAVE YOU EVER DEVELOPED ANY TYPE OF REACTION DURING OR AFTER DENTAL APPOINTMENT, VAGINAL/RECTAL EXAMINATION, SURGICAL PROCEDURE, OR ANY OTHER EXPOSURE?NO DATE ASKED : 07/16/2018 LATEX RISK : HAVE YOU EVER HAD ANY DIFFICULTY BREATHING OR HIVES AFTER EATING OR HANDLING ANY FRUITS, OR VEGETABLES; SUCH KIWI, BANANAS, STONE FRUITS, OR CHESTNUTSNO LATEX RISK : DO YOU HAVE A PREVIOUS PERSONAL HISTORY OF MORE THAN NINE SURGERIES, SPINA BIFIDA, OR REPEATED CATHERIZATIONS? NO LATEX RISK : ARE YOU FREQUENTLY EXPOSED TO LATEX PRODUCTS IN YOUR OCCUPATION?NO CAFFEINE CAFFEINE USE?YES 2-3 SODAS DAILY ADVANCE DIRECTIVE ADVANCE DIRECTIVE DISCUSSED WITH PATIENT:NO PT DOES NOT WANT INFORMATION AT THIS TIME DECLINES ASSISTANCE WITH PAPERWORK 09/10/18 MANDAEN [id number] LATTER-DAY MARITAL STATUS: . ALCOHOL SCREENING DID YOU HAVE A DRINK CONTAINING ALCOHOL IN THE PAST YEAR?NO POINTS0 INTERPRETATIONNEGATIVE OCCUPATION: UNEMPLOYED. SEXUAL HX HAD SEX IN THE LAST 12 MONTHS (VAGINAL, ORAL, OR ANAL)?NO LMP:N/A HAVE YOU EVER HAD AN STD?NO REVIEWED WITH PT 11/10/17 1330 LASREVIEWED WITH PATIENT 12/21/17 1452 JSREVIEWED WITH PT 01/23/18 0922 BVREVIEWED WITH PT 09/10/18 1401 BV. HOSPITALIZATION/MAJOR DIAGNOSTIC PROCEDURE SEE ABOVE SURGERY CHILD REVIEW OF SYSTEMS REVIEWED BY: PROVIDER: . CONSTITUTIONAL: ANY CHANGE IN YOUR MEDICAL CONDITION? NO . CHILLS NO . FEVER NO . INFECTION: DO YOU HAVE NEW INFECTIONS? NO . DO YOU HAVE HISTORY OF MRSA? NO . MUSCULOSKELETAL: ANY NEW PATTERNS OF PAIN OR NUMBNESS? NO . GASTROENTEROLOGY: ANY NEW CHANGE IN BOWEL CONTROL? NO . GENITOURINARY: ANY NEW CHANGE IN BLADDER CONTROL? NO . IS THERE A CHANCE YOU COULD BE ? NO . HEMATOLOGY/LYMPH: DO YOU TAKE ANY BLOOD THINNERS? (FOR EXAMPLE- COUMADIN, PLAVIX, AGGRENOX, PLATEL, PRADAXA, OR XARELTO) NO . WHEN WAS YOUR LAST DOSE? DATE: TIME: . NEUROLOGY: HAVE YOU FALLEN IN THE PAST 12 MONTHS? NO . ANY NEW EXTREMITY NUMBNESS OR WEAKNESS? NO . CARDIOLOGY: DO YOU HAVE A PACEMAKER OR DEFIBRILLATOR? NO . RESPIRATORY: HAVE YOU BEEN SICK IN THE PAST WEEK? NO . FEVER NO . FLU LIKE SYMPTOMS? NO . COUGH NO . INTEGUMENTARY: DO YOU HAVE ANY RASHES OR OPEN SORES? NO . ALLERGIC/IMMUNO: ARE YOU ALLERGIC TO IV DYE? NO . ANY NEW ALLERGIES? NO . PSYCHIATRIC: DO YOU HAVE THOUGHTS OF HURTING YOURSELF OR SOMEONE ELSE? NO . ARE YOU ABUSED, NEGLECTED, OR IN AN UNSAFE ENVIRONMENT? NO . ENDOCRINOLOGY: ARE YOU DIABETIC? NO . OTHER: DO YOU NEED ANY PRESCRIPTIONS? NO . IF YES, PLEASE LIST: ____ . ANY NEW PROBLEMS WITH YOUR MEDICATIONS? NO . WHEN DID YOU LAST EAT? ____2030N 01-09-19 . WHEN DID YOU LAST DRINK? ____TODAY 1200 . WHAT DID YOU LAST DRINK? ____WATER . NAME OF PERSON DRIVING YOU HOME? ____[facility] . DO YOU HAVE ANY OTHER QUESTIONS OR CONCERNS NO . VITAL SIGNS WT 218.0 LBS, HT 63 IN, BMI 38.61 INDEX, BP 103/51 MM HG, HR 68 /MIN, RR 16 /MIN, TEMP 96.0 F, OXYGEN SAT % 96%, NA INITIALS AW 1258. ASSESSMENTS MYALGIA, OTHER SITE - M79.18 (PRIMARY) PROCEDURES PN WORKMANS' COMP OPINION IN YOUR OPINION, WAS THE INCIDENT THAT THE PATIENT DESCRIBED THE COMPETENT MEDICAL CAUSE OF THIS INJURY/ILLNESS? YES ARE THE PATIENT'S COMPLAINTS CONSISTENT WITH HIS/HER HISTORY OF THE INJURY/ILLNESS? YES IS THE PATIENT'S HISTORY OF THE INJURY/ILLNESS CONSISTENT WITH YOUR OBJECTIVE FINDING? YES WHAT IS THE PERCENTAGE OF TEMPORARY IMPAIRMENT? MODERATE TO MARKED = 66.7% IS THE PATIENT WORKING? NO DOCTOR ON SITE: JERRY BRICE MD PN TRIGGER POINT INJECTION WITH STEROIDS PRE PROCEDURE DIAGNOSIS 1. MYALGIA 2. PAIN AT BILATERAL SHOULDER AREA. POST PROCEDURE DIAGNOSIS 1. MYALGIA 2. PAIN AT BILATERAL SHOULDER AREA. PROCEDURE TRIGGER POINT INJECTION AT RIGHT AND LEFT SHOULDER AREA. SURGEON DR. JERRY TEE FOAM RUBBER FABRICATOR NONE ANESTHESIA LOCAL PRE PROCEDURE NOTE THE PATIENT HAS A HISTORY OF CHRONIC PAIN AT THE RIGHT AND LEFT SHOULDER AREA. I EVALUATED THE PATIENT AND REVIEWED THE CHART. THERE IS EVIDENCE OF BANDS OF TISSUE WITH RESTRICTION OF MOVEMENT AND PRESENCE OF TRIGGER POINT AT THE AFFECTED AREA. I WENT OVER THE RISKS, ALTERNATIVES, AND BENEFITS ASSOCIATED WITH THIS PROCEDURE. THE PATIENT WOULD LIKE TO PROCEED AND GIVES CONSENT TO PERFORM THE PROCEDURE. THE PATIENT DENIES UNEXPLAINABLE WEIGHT LOSS, FEVER, CHILLS, OR NEW CHANGES IN URINARY OR BOWEL CONTROL DESCRIPTION OF PROCEDURE THE PATIENT WAS BROUGHT TO THE PROCEDURE ROOM AND PLACED IN THE SITTING POSITION. THE AREA WAS CLEANED WITH ALCOHOL. THE PROCEDURE WAS DONE USING ASEPTIC STERILE TECHNIQUE. I CHECKED LATERALITY AND THE LEVEL WHERE THE PROCEDURE WAS GOING TO BE PERFORMED WITH THE PATIENT AND THE SUPPORTING STAFF AT THE MOMENT OF THE TIME OUT IN THE PROCEDURE ROOM. USING A 25-GAUGE NEEDLE, TRIGGER POINTS WERE INJECTED AT THE RIGHT AND LEFT SHOULDER AREA WITH A TOTAL OF 40 ML OF BUPIVACAINE 0.25% AND KENALOG 40 MG. THERE WAS NO EVIDENCE OF BLOOD, PARESTHESIA OR CEREBROSPINAL FLUID DURING THE PROCEDURE. THE PATIENT WAS SENT TO THE RECOVERY ROOM. THE PATIENT WAS MOVING THE EXTREMITIES AND DOING WELL. THERE WAS NO COMPLICATION DURING THE PROCEDURE POST PROCEDURE NOTE THE PATIENT WILL BE SEEN IN A FOLLOW UP IN THE NEXT FEW WEEKS. INSTRUCTIONS WERE GIVEN, QUESTIONS WERE ANSWERED, AND THE PATIENT EXPRESSED UNDERSTANDING AND AGREES WITH THE PLAN. I, MADALYN PARK, DOCUMENTED THE ABOVE INFORMATION ACTING A SCRIBE FOR DR. TEE. I HAVE REVIEWED THE ABOVE DOCUMENT, WRITTEN BY MADALYN PERALTA AND I VERIFY THAT IT IS ACCURATE. PROCEDURE CODES 38540 INJ TRIGGER POINT / [facility] DISPOSITION & COMMUNICATION FOLLOW UP 3 WEEKS ELECTRONICALLY SIGNED BY JERRY TEE MD, MD ON 01/23/2019 AT 03:06 PM EDT DISCLAIMER : THIS IS A VISIT SUMMARY EXTRACTED FROM THE [employer] CHART. IT IS NOT A COPY OF THE [employer] PROGRESS NOTE. [facility]
== END ==
LOC: M PAIN 13:15
PROVIDERS: ATTEND Anesthesiology
DX: M79.18 Myalgia, other site (principal); I10 Essential (primary) hypertension; E03.9 Hypothyroidism, unspecified; F41.9 Anxiety disorder, unspecified; F32.9 Major depressive disorder, single episode, unspecified; K58.9 Irritable bowel syndrome, unspecified; M25.511 Pain in right shoulder; M25.512 Pain in left shoulder; Z87.891 Personal history of nicotine dependence; Z79.899 Other long term (current) drug therapy
CPT/HCPCS: 20552; J3301

== ENCOUNTER → 2019-02-20 | Outpatient (CLI) | payer OTHER ==
[~2019-02-20] MED LIST changes: -BUPIVACAINE HCL 0.25% 10 ML VIAL As Ordered ONE; -BUPIVACAINE HCL 0.25% 30 ML VIAL As Ordered ONE; -TRIAMCINOLONE ACETONIDE SUSP 40 MG/ML VIAL (J3301) As Ordered ONE; -diazePAM 5 MG TAB As Ordered ONE; -oxyCODONE 5MG TAB As Ordered ONE
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
== END ==
LOC: M PAIN 09:15
PROVIDERS: ATTEND Family Medicine
DX: M79.18 Myalgia, other site (principal); I10 Essential (primary) hypertension; Z86.59 Personal history of other mental and behavioral disorders; E03.9 Hypothyroidism, unspecified; Z87.891 Personal history of nicotine dependence; Z79.891 Long term (current) use of opiate analgesic; Z79.899 Other long term (current) drug therapy

== ENCOUNTER → 2019-03-21 | Outpatient (CLI) | payer OTHER | LOC: M PAIN 14:15 | PROVIDERS: ATTEND Anesthesiology | DX: Z53.20 Procedure and treatment not carried out because of patient's decision for unspecified reasons (principal) ==

== ENCOUNTER → 2019-03-22 | Outpatient (CLI) | payer OTHER ==
[~2019-03-22] MED LIST changes: +BUPIVACAINE HCL 0.25% 10 ML VIAL As Ordered ONE; +BUPIVACAINE HCL 0.25% 30 ML VIAL As Ordered ONE; +TRIAMCINOLONE ACETONIDE SUSP 40 MG/ML VIAL (J3301) As Ordered ONE; +diazePAM 5 MG TAB As Ordered ONE; +oxyCODONE 5MG TAB As Ordered ONE
--- NOTE | 2019-04-05 00:49 | ECWPNPC ---
PATIENT NAME: TAHMINA FORBES : 1970 GENDER: FEMALE VISIT DATE: 03/22/2019 DISCHARGE DATE: 03/22/19 1150 VISIT LOCKED DATE TIME: PHYSICIAN: JERRY TEE MD RESOURCE: JERRY TEE MD REASON FOR APPOINTMENT 1. W/C TPI BILAT LOW BACK HISTORY OF PRESENT ILLNESS HISTORY OF PRESENT ILLNESS: PAIN THE PATIENT DESCRIBES THE PAIN... FALL RISK SCREENING: SCREENING :NO FALLS REPORTED IN THE LAST YEAR CURRENT MEDICATIONS TAKING LISINOPRIL-HYDROCHLOROTHIAZIDE 10-12.5 MG TABLET 1 TABLET ORALLY DAILY, NOTES: 0800 TAKING LEVOTHYROXINE SODIUM 150 MCG TABLET 1 TABLET ON AN EMPTY STOMACH IN THE MORNING ORALLY ONCE A DAY, NOTES: 0800 TAKING ROPINIROLE HCL 1 MG TABLET 1 TAB ORALLY BEFORE BEDTIME, NOTES: 03/21/19@1900 TAKING FLUOXETINE HCL 40 MG CAPSULE 1 CAPSULE IN THE MORNING ORALLY ONCE A DAY 80 MG TAKES, NOTES: 0800 TAKING ESTRACE 2 MG TABLET 1 TABLET ORALLY DAILY, NOTES: 0800 TAKING BUSPIRONE HCL 15 MG TABLET 1 TABLET ORALLY THREE TIMES DAILY, NOTES: 0800 TAKING TRAZODONE HCL 100 MG TABLET 1 TABLET AT BEDTIME ORALLY ONCE A DAY PRN, NOTES: 03/21/19@2030 TAKING PRAVASTATIN SODIUM 40 MG TABLET 1 TABLET ORALLY ONCE A DAY, NOTES: 0800 TAKING OXYBUTYNIN CHLORIDE ER 10 MG TABLET EXTENDED RELEASE 24 HOUR TAKE 1 TABLET BY MOUTH ONCE DAILY , NOTES: 0800 TAKING NUCYNTA ER 150 MG TABLET EXTENDED RELEASE 12 HOUR 1 TABLET ORALLY BEFORE BEDTIME MDD1, NOTES: 2 DAYS AGO TAKING NUCYNTA 50 MG TABLET 1 TABLET ORALLY FOR PAIN Q8H PRN MDD3, NOTES: 03/21/19@1500 TAKING LYRICA 300 MG CAPSULE 1 CAP ORALLY BID MDD2, NOTES: 0800 DISCONTINUED SUDAFED 30 MG TABLET 1 TABLET NEEDED ORALLY EVERY 6 HRS DISCONTINUED FLONASE 50 MCG/ACT SUSPENSION 1 SPRAY IN EACH NOSTRIL NASALLY TWICE A DAY DISCONTINUED ERYTHROMYCIN 5 MG/GM OINTMENT 1 CM TO AFFECTED EYE OPHTHALMIC EVERY 4 HOURS WHILE AWAKE DISCONTINUED DELSYM 30 MG/5ML SUSPENSION EXTENDED RELEASE 10 ML NEEDED ORALLY EVERY 12 HRS MEDICATION LIST REVIEWED AND RECONCILED WITH THE PATIENT PAST MEDICAL HISTORY HYPERTENTION ANXIETY DEPRESSION BILAT. SHOULDER AND ELBOW PAIN HIP AND BACK PAIN IBS HYPOTHYROIDISM ALLERGIES N.K.D.A. SURGICAL HISTORY UMBILICAL HERNIA REPAIR CARPAL TUNNEL RELEASE-BILAT. BILAT. SHOULDER ARTHROSCOPY ROTATOR CUFF REPAIR TOTAL HYSTERECTOMY 2007 BILAT. ELBOW RELEASE FAMILY HISTORY FATHER: ALIVE 67 YRS, DIAGNOSED WITH UNSPECIFIED HEART DISEASE MOTHER: 64 YRS, SMOKER,ALS, EMPHYSEMA,LUNG CANCER 2 SISTER(S) - HEALTHY. 1DAUGHTER(S) - HEALTHY. MOM- ALS, EMPHYSEMA, LUNG CA. SOCIAL HISTORY GENERAL: TOBACCO USE ARE YOU A:FORMER SMOKER FORMER SMOKER.QUIT 9 YEARS AGO HOW LONG HAS IT BEEN SINCE YOU LAST SMOKED?> 10 YEARS HIV / HEP-C SCREENING HIV TEST OFFERED TO PATIENT:YES DATE OFFERED:05/10/2017 TEST ACCEPTED:NO REASON:PATIENT DECLINED OTHERS AT HOME: SPOUSE, CHILD, OTHER NON-RELATIVE,GRANDKIDS. DIET: REGULAR. LANGUAGE LANGUAGES SPOKEN:BULGARIAN RECREATIONAL DRUG USE DRUG USE?NO EXERCISE: NO REGULAR EXERCISE. LEARNING BARRIERS / SPECIAL NEEDS BARRIERS TO LEARNING?NO HEARING IMPAIRED?NO VISION IMPAIRED?NO READINESS TO LEARN?YES LEARNING PREFERENCES?NO LEARNING CAPABILITIES PRESENT?YES PAIN CLINIC PFS, CLERGY, PUBLIC HEALTH REFERRALS PFS REFERRAL NEEDED?NO CLERGY REFERRAL NEEDED?NO PUBLIC HEALTH REFERRAL NEEDED?NO WAS THE PROVIDER NOTIFIED OF ANY PERTINENT INFO?YES HAS THE PATIENT BEEN EDUCATED REGARDING HIS/HER PLAN OF CARE?YES HAS THE PATIENT BEEN EDUCATED REGARDING PAIN, THE RISK FOR PAIN, THE IMPORTANCE OF EFFECTIVE PAIN MANAGEMENT, AND THE PAIN ASSESSMENT PROCESS?YES LATEX QUESTIONNAIRE LATEX ALLERGY : HAVE YOU EVER DEVELOPED ANY TYPE OF REACTION AFTER HANDLING LATEX PRODUCTS SUCH RUBBER GLOVES, CONDOMS, DIAPHRAGMS, BALLOONS, SOCKS, OR UNDERWEAR?NO LATEX ALLERGY : HAVE YOU EVER DEVELOPED ANY TYPE OF REACTION DURING OR AFTER DENTAL APPOINTMENT, VAGINAL/RECTAL EXAMINATION, SURGICAL PROCEDURE, OR ANY OTHER EXPOSURE?NO LATEX RISK : HAVE YOU EVER HAD ANY DIFFICULTY BREATHING OR HIVES AFTER EATING OR HANDLING ANY FRUITS, OR VEGETABLES; SUCH KIWI, BANANAS, STONE FRUITS, OR CHESTNUTSNO LATEX RISK : DO YOU HAVE A PREVIOUS PERSONAL HISTORY OF MORE THAN NINE SURGERIES, SPINA BIFIDA, OR REPEATED CATHERIZATIONS? NO LATEX RISK : ARE YOU FREQUENTLY EXPOSED TO LATEX PRODUCTS IN YOUR OCCUPATION?NO DATE ASKED : 03/22/2019 CAFFEINE CAFFEINE USE?YES 2-3 SODAS DAILY ADVANCE DIRECTIVE ADVANCE DIRECTIVE DISCUSSED WITH PATIENT:NO PT DOES NOT WANT INFORMATION AT THIS TIME DECLINES ASSISTANCE WITH PAPERWORK 09/10/18 RESTORATIONIST [id number] CHEONDOISM MARITAL STATUS: . ALCOHOL SCREENING DID YOU HAVE A DRINK CONTAINING ALCOHOL IN THE PAST YEAR?NO POINTS0 INTERPRETATIONNEGATIVE OCCUPATION: UNEMPLOYED. SEXUAL HX HAD SEX IN THE LAST 12 MONTHS (VAGINAL, ORAL, OR ANAL)?NO LMP:N/A HAVE YOU EVER HAD AN STD?NO REVIEWED WITH PT 11/10/17 1330 LASREVIEWED WITH PATIENT 12/21/17 1452 JSREVIEWED WITH PT 01/23/18 0922 BVREVIEWED WITH PT 09/10/18 1401 BVREVIEWED WITH PATIENT 02/20/19 0937 NLJREVIEWED WITH PT. 03/22/19 VD. HOSPITALIZATION/MAJOR DIAGNOSTIC PROCEDURE SEE ABOVE SURGERY CHILD REVIEW OF SYSTEMS REVIEWED BY: PROVIDER: . CONSTITUTIONAL: ANY CHANGE IN YOUR MEDICAL CONDITION? NO . CHILLS NO . FEVER NO . INFECTION: DO YOU HAVE NEW INFECTIONS? NO . DO YOU HAVE HISTORY OF MRSA? NO . MUSCULOSKELETAL: ANY NEW PATTERNS OF PAIN OR NUMBNESS? YES . GASTROENTEROLOGY: ANY NEW CHANGE IN BOWEL CONTROL? NO . GENITOURINARY: ANY NEW CHANGE IN BLADDER CONTROL? NO . IS THERE A CHANCE YOU COULD BE ? NO . HEMATOLOGY/LYMPH: DO YOU TAKE ANY BLOOD THINNERS? (FOR EXAMPLE- COUMADIN, PLAVIX, AGGRENOX, PLATEL, PRADAXA, OR XARELTO) NO . WHEN WAS YOUR LAST DOSE? DATE: TIME: . NEUROLOGY: HAVE YOU FALLEN IN THE PAST 12 MONTHS? NO . ANY NEW EXTREMITY NUMBNESS OR WEAKNESS? YES . CARDIOLOGY: DO YOU HAVE A PACEMAKER OR DEFIBRILLATOR? NO . RESPIRATORY: HAVE YOU BEEN SICK IN THE PAST WEEK? NO . FEVER NO . FLU LIKE SYMPTOMS? NO . COUGH NO . INTEGUMENTARY: DO YOU HAVE ANY RASHES OR OPEN SORES? NO . ALLERGIC/IMMUNO: ARE YOU ALLERGIC TO IV DYE? NO . ANY NEW ALLERGIES? NO . PSYCHIATRIC: DO YOU HAVE THOUGHTS OF HURTING YOURSELF OR SOMEONE ELSE? NO . ARE YOU ABUSED, NEGLECTED, OR IN AN UNSAFE ENVIRONMENT? NO . ENDOCRINOLOGY: ARE YOU DIABETIC? NO . OTHER: DO YOU NEED ANY PRESCRIPTIONS? NO . IF YES, PLEASE LIST: ____ . ANY NEW PROBLEMS WITH YOUR MEDICATIONS? NO . WHEN DID YOU LAST EAT? ____03/21/19 . WHEN DID YOU LAST DRINK? ____0800 . WHAT DID YOU LAST DRINK? ____WATER . NAME OF PERSON DRIVING YOU HOME? ____DAVID FORBES . DO YOU HAVE ANY OTHER QUESTIONS OR CONCERNS NO . VITAL SIGNS WT 217.2 LBS, HT 63 IN, BMI 38.47 INDEX, BP 102/62 MM HG, HR 67 /MIN, RR 18 /MIN, TEMP 96.8 F, OXYGEN SAT % 96%, SAFE IN ENV? (Y/N) YES, NA INITIALS SC 10:27, REVIEWED BY: VD. ASSESSMENTS MYALGIA, OTHER SITE - M79.18 (PRIMARY) PROCEDURES PN WORKMANS' COMP OPINION IN YOUR OPINION, WAS THE INCIDENT THAT THE PATIENT DESCRIBED THE COMPETENT MEDICAL CAUSE OF THIS INJURY/ILLNESS? YES ARE THE PATIENT'S COMPLAINTS CONSISTENT WITH HIS/HER HISTORY OF THE INJURY/ILLNESS? YES IS THE PATIENT'S HISTORY OF THE INJURY/ILLNESS CONSISTENT WITH YOUR OBJECTIVE FINDING? YES WHAT IS THE PERCENTAGE OF TEMPORARY IMPAIRMENT? MODERATE TO MARKED = 66.7% IS THE PATIENT WORKING? YES DOCTOR ON SITE: JERRY BRICE MD PN TRIGGER POINT INJECTION WITH STEROIDS PRE PROCEDURE DIAGNOSIS 1. MYALGIA 2. PAIN AT BILATERAL LOW BACK AREA. POST PROCEDURE DIAGNOSIS 1. MYALGIA 2. PAIN AT BILATERAL LOW BACK AREA. PROCEDURE TRIGGER POINT INJECTION AT RIGHT AND LEFT LOW BACK AREA. SURGEON DR. JERRY TEE LIQUEFIER NONE ANESTHESIA LOCAL PRE PROCEDURE NOTE THE PATIENT HAS A HISTORY OF CHRONIC PAIN AT THE RIGHT AND LEFT LOW BACK AREA. I EVALUATED THE PATIENT AND REVIEWED THE CHART. THERE IS EVIDENCE OF BANDS OF TISSUE WITH RESTRICTION OF MOVEMENT AND PRESENCE OF TRIGGER POINT AT THE AFFECTED AREA. I WENT OVER THE RISKS, ALTERNATIVES, AND BENEFITS ASSOCIATED WITH THIS PROCEDURE. THE PATIENT WOULD LIKE TO PROCEED AND GIVES CONSENT TO PERFORM THE PROCEDURE. THE PATIENT DENIES UNEXPLAINABLE WEIGHT LOSS, FEVER, CHILLS, OR NEW CHANGES IN URINARY OR BOWEL CONTROL DESCRIPTION OF PROCEDURE THE PATIENT WAS BROUGHT TO THE PROCEDURE ROOM AND PLACED IN THE SITTING POSITION. THE AREA WAS CLEANED WITH ALCOHOL. THE PROCEDURE WAS DONE USING ASEPTIC STERILE TECHNIQUE. I CHECKED LATERALITY AND THE LEVEL WHERE THE PROCEDURE WAS GOING TO BE PERFORMED WITH THE PATIENT AND THE SUPPORTING STAFF AT THE MOMENT OF THE TIME OUT IN THE PROCEDURE ROOM. USING A 25-GAUGE NEEDLE, TRIGGER POINTS WERE INJECTED AT THE RIGHT AND LEFT LOW BACK AREA WITH A TOTAL OF 40 ML OF BUPIVACAINE 0.25% AND KENALOG 40 MG. THERE WAS NO EVIDENCE OF BLOOD, PARESTHESIA OR CEREBROSPINAL FLUID DURING THE PROCEDURE. THE PATIENT WAS SENT TO THE RECOVERY ROOM. THE PATIENT WAS MOVING THE EXTREMITIES AND DOING WELL. THERE WAS NO COMPLICATION DURING THE PROCEDURE POST PROCEDURE NOTE I AM LOOKING FOR LONG LASTING PAIN RELIEF WITH THIS INJECTION. THE PATIENT WILL BE SEEN IN A FOLLOW UP IN THE NEXT FEW WEEKS. INSTRUCTIONS WERE GIVEN, QUESTIONS WERE ANSWERED, AND THE PATIENT EXPRESSED UNDERSTANDING AND AGREES WITH THE PLAN. I, MADALYN PARK, DOCUMENTED THE ABOVE INFORMATION ACTING A SCRIBE FOR DR. TEE. I HAVE REVIEWED THE ABOVE DOCUMENT, WRITTEN BY MADALYN PARK SCRIBE AND I VERIFY THAT IT IS ACCURATE. PROCEDURE CODES 50556 INJ TRIGGER POINT 04/04 [facility] DISPOSITION & COMMUNICATION FOLLOW UP 3 WEEKS ELECTRONICALLY SIGNED BY JERRY TEE MD, ON 04/04/2019 AT 01:56 PM EST DISCLAIMER : THIS IS A VISIT SUMMARY EXTRACTED FROM THE [employer] CHART. IT IS NOT A COPY OF THE [employer] PROGRESS NOTE. REILLY
== END ==
LOC: M PAIN 09:30
PROVIDERS: ATTEND Anesthesiology
DX: M79.18 Myalgia, other site (principal)
CPT/HCPCS: 20552; J3301

== ENCOUNTER → 2019-04-16 | Outpatient (CLI) | payer OTHER ==
[~2019-04-16] MED LIST changes: -BUPIVACAINE HCL 0.25% 10 ML VIAL As Ordered ONE; -BUPIVACAINE HCL 0.25% 30 ML VIAL As Ordered ONE; -OXYB10TA2 PO; +OXYB10TA23 PO; -TRAZ-163 PO; +TRAZ-257 PO; -TRIAMCINOLONE ACETONIDE SUSP 40 MG/ML VIAL (J3301) As Ordered ONE; -diazePAM 5 MG TAB As Ordered ONE; -oxyCODONE 5MG TAB As Ordered ONE
--- NOTE | 2019-04-17 23:54 | ECWPNPC ---
PATIENT NAME: TAHMINA FORBES : 1970 GENDER: FEMALE VISIT DATE: 04/16/2019 DISCHARGE DATE: 04/16/19 1359 VISIT LOCKED DATE TIME: PHYSICIAN: CARRIE PAGE RESOURCE: CARRIE PAGE REASON FOR APPOINTMENT 1. W/C POST PROCEDURE HISTORY OF PRESENT ILLNESS HISTORY OF PRESENT ILLNESS: PAIN THE PATIENT DESCRIBES THE PAIN... SEVERITY - PAIN SCORE OF3/10 LOCATIONSRIGHT SHOULDER QUALITYTHROBBING, ACHING , SORE DURATIONCONTINUOUS PAIN IS INCREASED BY:ACTIVITIES PAIN IS DECREASED BY:USE OF PAIN MEDICATIONS ERNESTO HELPS SOME 48-YEAR-OLD FEMALE IN FOR POST BILATERAL SHOULDER TPI FOLLOW-UP. SHE RATES HER PAIN CURRENTLY AT A 3-5 OUT OF 10 AND DESCRIBES IT ACHING, STABBING, SORE, AND TENDER. WHEN ASKED SHE ADMITS TO PAIN IN HER RIGHT SHOULDER IS A 5 OUT OF 10 AND HER LEFT SHOULDER IS A 3 OUT OF 10. PATIENT DOES FEEL THE PROCEDURE HAS BEEN HELPFUL AND WOULD LIKE TO DISCUSS A REPEAT PROCEDURE. GOALS OF THE REPEAT PROCEDURE ARE INCREASED FUNCTIONALITY AND A DECREASE IN PAIN. PATIENT STATES THAT WHEN SHE USE TO WORK FOR [employer] AND DUE TO THE REPETITIOUS MOVEMENT OF HER RIGHT AND LEFT SHOULDERS AND ELBOWS IS HOW SHE BECAME INJURED. FALL RISK SCREENING: SCREENING :NO FALLS REPORTED IN THE LAST YEAR CURRENT MEDICATIONS TAKING LISINOPRIL-HYDROCHLOROTHIAZIDE 10-12.5 MG TABLET 1 TABLET ORALLY DAILY TAKING LEVOTHYROXINE SODIUM 150 MCG TABLET 1 TABLET ON AN EMPTY STOMACH IN THE MORNING ORALLY ONCE A DAY TAKING ROPINIROLE HCL 1 MG TABLET 1 TAB ORALLY BEFORE BEDTIME TAKING FLUOXETINE HCL 40 MG CAPSULE 1 CAPSULE IN THE MORNING ORALLY ONCE A DAY 80 MG TAKES TAKING ESTRACE 2 MG TABLET 1 TABLET ORALLY DAILY TAKING BUSPIRONE HCL 15 MG TABLET 1 TABLET ORALLY THREE TIMES DAILY TAKING TRAZODONE HCL 100 MG TABLET 1 TABLET AT BEDTIME ORALLY ONCE A DAY PRN TAKING PRAVASTATIN SODIUM 40 MG TABLET 1 TABLET ORALLY ONCE A DAY TAKING OXYBUTYNIN CHLORIDE ER 10 MG TABLET EXTENDED RELEASE 24 HOUR TAKE 1 TABLET BY MOUTH ONCE DAILY TAKING NUCYNTA ER 150 MG TABLET EXTENDED RELEASE 12 HOUR 1 TABLET ORALLY BEFORE BEDTIME MDD1 TAKING NUCYNTA 50 MG TABLET 1 TABLET ORALLY FOR PAIN Q8H PRN MDD3 TAKING LYRICA 300 MG CAPSULE 1 CAP ORALLY BID MDD2 MEDICATION LIST REVIEWED AND RECONCILED WITH THE PATIENT PAST MEDICAL HISTORY HYPERTENTION ANXIETY DEPRESSION BILAT. SHOULDER AND ELBOW PAIN HIP AND BACK PAIN IBS HYPOTHYROIDISM ALLERGIES N.K.D.A. SURGICAL HISTORY UMBILICAL HERNIA REPAIR CARPAL TUNNEL RELEASE-BILAT. BILAT. SHOULDER ARTHROSCOPY ROTATOR CUFF REPAIR TOTAL HYSTERECTOMY 2007 BILAT. ELBOW RELEASE FAMILY HISTORY FATHER: ALIVE 67 YRS, DIAGNOSED WITH UNSPECIFIED HEART DISEASE MOTHER: 64 YRS, SMOKER,ALS, EMPHYSEMA,LUNG CANCER 2 SISTER(S) - HEALTHY. 1DAUGHTER(S) - HEALTHY. MOM- ALS, EMPHYSEMA, LUNG CA. SOCIAL HISTORY GENERAL: TOBACCO USE ARE YOU A:FORMER SMOKER FORMER SMOKER.QUIT 9 YEARS AGO HOW LONG HAS IT BEEN SINCE YOU LAST SMOKED?> 10 YEARS HIV / HEP-C SCREENING HIV TEST OFFERED TO PATIENT:YES DATE OFFERED:05/10/2017 TEST ACCEPTED:NO REASON:PATIENT DECLINED OTHERS AT HOME: SPOUSE, CHILD, OTHER NON-RELATIVE,GRANDKIDS. DIET: REGULAR. LANGUAGE LANGUAGES SPOKEN:POLISH RECREATIONAL DRUG USE DRUG USE?NO EXERCISE: NO REGULAR EXERCISE. LEARNING BARRIERS / SPECIAL NEEDS BARRIERS TO LEARNING?NO HEARING IMPAIRED?NO VISION IMPAIRED?NO COGNITIVELY IMPAIRED?NO READINESS TO LEARN?YES LEARNING PREFERENCES?NO LEARNING CAPABILITIES PRESENT?YES EMOTIONAL BARRIERS?NO SPECIAL DEVICES?NO AIRCRAFT SYSTEMS TECHNICIAN NEEDED?NO PAIN CLINIC PFS, CLERGY, PUBLIC HEALTH REFERRALS PFS REFERRAL NEEDED?NO CLERGY REFERRAL NEEDED?NO PUBLIC HEALTH REFERRAL NEEDED?NO WAS THE PROVIDER NOTIFIED OF ANY PERTINENT INFO?YES HAS THE PATIENT BEEN EDUCATED REGARDING HIS/HER PLAN OF CARE?YES HAS THE PATIENT BEEN EDUCATED REGARDING PAIN, THE RISK FOR PAIN, THE IMPORTANCE OF EFFECTIVE PAIN MANAGEMENT, AND THE PAIN ASSESSMENT PROCESS?YES LATEX QUESTIONNAIRE LATEX ALLERGY : HAVE YOU EVER DEVELOPED ANY TYPE OF REACTION AFTER HANDLING LATEX PRODUCTS SUCH RUBBER GLOVES, CONDOMS, DIAPHRAGMS, BALLOONS, SOCKS, OR UNDERWEAR?NO LATEX ALLERGY : HAVE YOU EVER DEVELOPED ANY TYPE OF REACTION DURING OR AFTER DENTAL APPOINTMENT, VAGINAL/RECTAL EXAMINATION, SURGICAL PROCEDURE, OR ANY OTHER EXPOSURE?NO LATEX RISK : HAVE YOU EVER HAD ANY DIFFICULTY BREATHING OR HIVES AFTER EATING OR HANDLING ANY FRUITS, OR VEGETABLES; SUCH KIWI, BANANAS, STONE FRUITS, OR CHESTNUTSNO LATEX RISK : DO YOU HAVE A PREVIOUS PERSONAL HISTORY OF MORE THAN NINE SURGERIES, SPINA BIFIDA, OR REPEATED CATHERIZATIONS? NO LATEX RISK : ARE YOU FREQUENTLY EXPOSED TO LATEX PRODUCTS IN YOUR OCCUPATION?NO DATE ASKED : 04/16/2019 CAFFEINE CAFFEINE USE?YES 2-3 SODAS DAILY ADVANCE DIRECTIVE ADVANCE DIRECTIVE DISCUSSED WITH PATIENT:NO PT DOES NOT WANT INFORMATION AT THIS TIME DECLINES ASSISTANCE WITH PAPERWORK 09/10/18 ADVENTIST [id number] YAZDANISM MARITAL STATUS: . ALCOHOL SCREENING DID YOU HAVE A DRINK CONTAINING ALCOHOL IN THE PAST YEAR?NO POINTS0 INTERPRETATIONNEGATIVE OCCUPATION: UNEMPLOYED. SEXUAL HX HAD SEX IN THE LAST 12 MONTHS (VAGINAL, ORAL, OR ANAL)?NO LMP:N/A HAVE YOU EVER HAD AN STD?NO REVIEWED WITH PT 11/10/17 1330 LASREVIEWED WITH PATIENT 12/21/17 1452 JSREVIEWED WITH PT 01/23/18 0922 BVREVIEWED WITH PT 09/10/18 1401 BVREVIEWED WITH PATIENT 02/20/19 0937 NLJREVIEWED WITH PT. 03/22/19 VDREVIEWED WITH PATIENT 04/16/2019. HOSPITALIZATION/MAJOR DIAGNOSTIC PROCEDURE SEE ABOVE SURGERY CHILD REVIEW OF SYSTEMS REVIEWED BY: PROVIDER: SHARRON HIRSCH . CONSTITUTIONAL: ANY CHANGE IN YOUR MEDICAL CONDITION? NO . CHILLS NO . FEVER NO . INFECTION: DO YOU HAVE NEW INFECTIONS? NO . DO YOU HAVE HISTORY OF MRSA? NO . MUSCULOSKELETAL: ANY NEW PATTERNS OF PAIN OR NUMBNESS? YES, PAIN IN RIGHT SHOULDER SEEMS TO BE MORE FREQUENT AND MEDS ARE NOT HALPING MUCH . GASTROENTEROLOGY: ANY NEW CHANGE IN BOWEL CONTROL? NO . GENITOURINARY: ANY NEW CHANGE IN BLADDER CONTROL? NO . IS THERE A CHANCE YOU COULD BE ? NO . HEMATOLOGY/LYMPH: DO YOU TAKE ANY BLOOD THINNERS? (FOR EXAMPLE- COUMADIN, PLAVIX, AGGRENOX, PLATEL, PRADAXA, OR XARELTO) NO . WHEN WAS YOUR LAST DOSE? DATE: TIME: . NEUROLOGY: HAVE YOU FALLEN IN THE PAST 12 MONTHS? NO . ANY NEW EXTREMITY NUMBNESS OR WEAKNESS? NO . CARDIOLOGY: DO YOU HAVE A PACEMAKER OR DEFIBRILLATOR? NO . RESPIRATORY: HAVE YOU BEEN SICK IN THE PAST WEEK? NO . FEVER NO . FLU LIKE SYMPTOMS? NO . COUGH NO . INTEGUMENTARY: DO YOU HAVE ANY RASHES OR OPEN SORES? NO . ALLERGIC/IMMUNO: ARE YOU ALLERGIC TO IV DYE? NO . ANY NEW ALLERGIES? NO . PSYCHIATRIC: DO YOU HAVE THOUGHTS OF HURTING YOURSELF OR SOMEONE ELSE? NO . ARE YOU ABUSED, NEGLECTED, OR IN AN UNSAFE ENVIRONMENT? NO . ENDOCRINOLOGY: ARE YOU DIABETIC? NO . OTHER: DO YOU NEED ANY PRESCRIPTIONS? NO . IF YES, PLEASE LIST: ____ . ANY NEW PROBLEMS WITH YOUR MEDICATIONS? NO . WHEN DID YOU LAST EAT? ____ . WHEN DID YOU LAST DRINK? ____ . WHAT DID YOU LAST DRINK? ____ . NAME OF PERSON DRIVING YOU HOME? ____ . DO YOU HAVE ANY OTHER QUESTIONS OR CONCERNS NO . VITAL SIGNS WT 217.6 LBS, HT 63 IN, BMI 38.54 INDEX, BP 108/62 MM HG, HR 71 /MIN, RR 17 /MIN, TEMP 97.4 F, OXYGEN SAT % 96, SAFE IN ENV? (Y/N) Y, REVIEWED BY: CARON. DORA BRAY, CRISS II @ [id number]. EXAMINATION GENERAL EXAMINATION: GENERALNO ACUTE DISTRESS, WELL NOURISHED AND HYDRATED. PSYCHAPPROPRIATE MOOD AND AFFECT . LUNGS:CLEAR TO AUSCULTATION BILATERALLY, NO WHEEZES, RHONCHI, RALES. HEART:NO MURMURS, REGULAR RATE AND RHYTHM. MUSCULOSKELETAL:POINT TENDER OVER RIGHT SHOULDER, SKIN OF BILATERAL SHOULDERS SHOWS NO ERYTHEMA, ECCHYMOSIS, INCREASED WARMTH, AND/OR SKIN ERUPTIONS NOTED. . ASSESSMENTS MYALGIA, OTHER SITE - M79.18 (PRIMARY) TREATMENT MYALGIA, OTHER SITE START TIZANIDINE HCL TABLET, 4 MG, 1 TABLET NEEDED, ORALLY, THREE TIMES A DAY, 30 DAYS, 90 TABLET NOTES: BILATERAL SHOULDER TPI. CLINICAL NOTES: 48-YEAR-OLD FEMALE IN FOR WORKER'S COMP. CHRONIC PAIN FOLLOW-UP. GIVEN PRESENTING SYMPTOMS AND RESULTS OF PHYSICAL EXAMINATION RECOMMENDED BILATERAL TRIGGER POINT INJECTIONS OF THE SHOULDERS WITH POST PROCEDURAL FOLLOW-UP. WE'LL TRIAL TIZANIDINE 4 MG 3 TIMES A DAY NEEDED. PATIENT HAS EXPRESSED UNDERSTANDING OF AND WAS IN AGREEMENT WITH TREATMENT PLAN. GIVEN TIME TO ASK QUESTIONS AND EXPRESS CONCERNS., ISTOP REGISTRY REVIEWED AND DEMONSTRATES COMPLLIANCE. (REF # [id number] ) BRINGS IN MEDICATIONS WHICH IS APPROPRIATE FOR WHAT WAS DISPENSED. RECENT URINE TOXICOLOGY REVIEWED. NO UNAUTHORIZED MEDICATIONS. NO ILLICIT SUBSTANCES AND PRESCRIBED MEDICATIONS WERE PRESENT. OTHERS NOTES: TIZANIDINE MATERIAL WAS PRINTED. PROCEDURES PN WORKMANS' COMP OPINION IN YOUR OPINION, WAS THE INCIDENT THAT THE PATIENT DESCRIBED THE COMPETENT MEDICAL CAUSE OF THIS INJURY/ILLNESS? YES ARE THE PATIENT'S COMPLAINTS CONSISTENT WITH HIS/HER HISTORY OF THE INJURY/ILLNESS? YES IS THE PATIENT'S HISTORY OF THE INJURY/ILLNESS CONSISTENT WITH YOUR OBJECTIVE FINDING? YES WHAT IS THE PERCENTAGE OF TEMPORARY IMPAIRMENT? MODERATE TO MARKED = 66.7% IS THE PATIENT WORKING? YES DOCTOR ON SITE: JERRY BRICE MD PROCEDURE CODES FA211 ESTABILISHED PATIENT [facility] CHARGE DISPOSITION & COMMUNICATION FOLLOW UP POSTPROCEDURE (REASON: BILATERAL SHOULDER TPI) ELECTRONICALLY SIGNED BY ROXANNA MIRANDA ON 04/17/2019 AT 03:52 PM EST DISCLAIMER : THIS IS A VISIT SUMMARY EXTRACTED FROM THE [employer] CHART. IT IS NOT A COPY OF THE [employer] PROGRESS NOTE. REILLY
== END ==
LOC: M PAIN 13:15
PROVIDERS: ATTEND Family Medicine
DX: M79.18 Myalgia, other site (principal)

== ENCOUNTER → 2019-05-03 | Outpatient (CLI) | payer OTHER ==
[~2019-05-03] MED LIST changes: +BUPIVACAINE HCL 0.25% 30 ML VIAL As Ordered ONE; +NORCO, ANEXSIA 5/325MG TABLET (HYDROcodone/ACETAMINOPHEN) As Ordered ONE; -ROPI1TAB PO; +ROPI1TAB3 PO; +TRIAMCINOLONE ACETONIDE SUSP 40 MG/ML VIAL (J3301) As Ordered ONE; +diazePAM 5 MG TAB As Ordered ONE
--- NOTE | 2019-05-11 01:17 | ECWPNPC ---
PATIENT NAME: TAHMINA FORBES : 1970 GENDER: FEMALE VISIT DATE: 05/03/2019 DISCHARGE DATE: 05/03/19 1111 VISIT LOCKED DATE TIME: PHYSICIAN: JERRY TEE MD RESOURCE: JERRY TEE MD REASON FOR APPOINTMENT 1. W/C, TPI- SHOULDER HISTORY OF PRESENT ILLNESS HISTORY OF PRESENT ILLNESS: PAIN THE PATIENT DESCRIBES THE PAIN... FALL RISK SCREENING: SCREENING :NO FALLS REPORTED IN THE LAST YEAR CURRENT MEDICATIONS TAKING LISINOPRIL-HYDROCHLOROTHIAZIDE 10-12.5 MG TABLET 1 TABLET ORALLY DAILY, NOTES: 05/03/19 AM TAKING LEVOTHYROXINE SODIUM 150 MCG TABLET 1 TABLET ON AN EMPTY STOMACH IN THE MORNING ORALLY ONCE A DAY, NOTES: 05/03/19 AM TAKING ROPINIROLE HCL 1 MG TABLET 1 TAB ORALLY BEFORE BEDTIME, NOTES: 05/02/19 TAKING FLUOXETINE HCL 40 MG CAPSULE 1 CAPSULE IN THE MORNING ORALLY ONCE A DAY 80 MG TAKES, NOTES: 05/03/19 AM TAKING ESTRACE 2 MG TABLET 1 TABLET ORALLY DAILY, NOTES: 05/03/19 AM TAKING BUSPIRONE HCL 15 MG TABLET 1 TABLET ORALLY THREE TIMES DAILY, NOTES: 05/03/19 AM TAKING TRAZODONE HCL 100 MG TABLET 1 TABLET AT BEDTIME ORALLY ONCE A DAY PRN, NOTES: 05/02/19 TAKING PRAVASTATIN SODIUM 40 MG TABLET 1 TABLET ORALLY ONCE A DAY, NOTES: 05/03/19 AM TAKING OXYBUTYNIN CHLORIDE ER 10 MG TABLET EXTENDED RELEASE 24 HOUR TAKE 1 TABLET BY MOUTH ONCE DAILY , NOTES: 05/03/19 AM TAKING NUCYNTA ER 150 MG TABLET EXTENDED RELEASE 12 HOUR 1 TABLET ORALLY BEFORE BEDTIME MDD1, NOTES: 05/02/19 TAKING NUCYNTA 50 MG TABLET 1 TABLET ORALLY FOR PAIN Q8H PRN MDD3, NOTES: 05/02/19 TAKING LYRICA 300 MG CAPSULE 1 CAP ORALLY BID MDD2, NOTES: 05/03/19 AM TAKING TIZANIDINE HCL 4 MG TABLET 1 TABLET NEEDED ORALLY THREE TIMES A DAY, NOTES: 05/02/19 MEDICATION LIST REVIEWED AND RECONCILED WITH THE PATIENT PAST MEDICAL HISTORY HYPERTENTION ANXIETY DEPRESSION BILAT. SHOULDER AND ELBOW PAIN HIP AND BACK PAIN IBS HYPOTHYROIDISM ALLERGIES N.K.D.A. SURGICAL HISTORY UMBILICAL HERNIA REPAIR CARPAL TUNNEL RELEASE-BILAT. BILAT. SHOULDER ARTHROSCOPY ROTATOR CUFF REPAIR TOTAL HYSTERECTOMY 2007 BILAT. ELBOW RELEASE FAMILY HISTORY FATHER: ALIVE 67 YRS, DIAGNOSED WITH UNSPECIFIED HEART DISEASE MOTHER: 64 YRS, SMOKER,ALS, EMPHYSEMA,LUNG CANCER 2 SISTER(S) - HEALTHY. 1DAUGHTER(S) - HEALTHY. MOM- ALS, EMPHYSEMA, LUNG CA. SOCIAL HISTORY GENERAL: TOBACCO USE ARE YOU A:FORMER SMOKER FORMER SMOKER.QUIT 9 YEARS AGO HOW LONG HAS IT BEEN SINCE YOU LAST SMOKED?> 10 YEARS HIV / HEP-C SCREENING HIV TEST OFFERED TO PATIENT:YES DATE OFFERED:05/10/2017 TEST ACCEPTED:NO REASON:PATIENT DECLINED OTHERS AT HOME: SPOUSE, CHILD, OTHER NON-RELATIVE,GRANDKIDS. DIET: REGULAR. LANGUAGE LANGUAGES SPOKEN:[place] RECREATIONAL DRUG USE DRUG USE?NO EXERCISE: NO REGULAR EXERCISE. LEARNING BARRIERS / SPECIAL NEEDS BARRIERS TO LEARNING?NO HEARING IMPAIRED?NO VISION IMPAIRED?NO COGNITIVELY IMPAIRED?NO READINESS TO LEARN?YES LEARNING PREFERENCES?NO LEARNING CAPABILITIES PRESENT?YES EMOTIONAL BARRIERS?NO SPECIAL DEVICES?NO FASHION STYLIST NEEDED?NO PAIN CLINIC PFS, CLERGY, PUBLIC HEALTH REFERRALS PFS REFERRAL NEEDED?NO CLERGY REFERRAL NEEDED?NO PUBLIC HEALTH REFERRAL NEEDED?NO WAS THE PROVIDER NOTIFIED OF ANY PERTINENT INFO?YES HAS THE PATIENT BEEN EDUCATED REGARDING HIS/HER PLAN OF CARE?YES HAS THE PATIENT BEEN EDUCATED REGARDING PAIN, THE RISK FOR PAIN, THE IMPORTANCE OF EFFECTIVE PAIN MANAGEMENT, AND THE PAIN ASSESSMENT PROCESS?YES LATEX QUESTIONNAIRE LATEX ALLERGY : HAVE YOU EVER DEVELOPED ANY TYPE OF REACTION AFTER HANDLING LATEX PRODUCTS SUCH RUBBER GLOVES, CONDOMS, DIAPHRAGMS, BALLOONS, SOCKS, OR UNDERWEAR?NO LATEX ALLERGY : HAVE YOU EVER DEVELOPED ANY TYPE OF REACTION DURING OR AFTER DENTAL APPOINTMENT, VAGINAL/RECTAL EXAMINATION, SURGICAL PROCEDURE, OR ANY OTHER EXPOSURE?NO DATE ASKED : 04/16/2019 LATEX RISK : HAVE YOU EVER HAD ANY DIFFICULTY BREATHING OR HIVES AFTER EATING OR HANDLING ANY FRUITS, OR VEGETABLES; SUCH KIWI, BANANAS, STONE FRUITS, OR CHESTNUTSNO LATEX RISK : DO YOU HAVE A PREVIOUS PERSONAL HISTORY OF MORE THAN NINE SURGERIES, SPINA BIFIDA, OR REPEATED CATHERIZATIONS? NO LATEX RISK : ARE YOU FREQUENTLY EXPOSED TO LATEX PRODUCTS IN YOUR OCCUPATION?NO CAFFEINE CAFFEINE USE?YES 2-3 SODAS DAILY ADVANCE DIRECTIVE ADVANCE DIRECTIVE DISCUSSED WITH PATIENT:YES PT DOES NOT WANT INFORMATION AT THIS TIME DECLINES ASSISTANCE WITH PAPERWORK MOSQUE [id number] PENTECOSTAL MARITAL STATUS: . ALCOHOL SCREENING DID YOU HAVE A DRINK CONTAINING ALCOHOL IN THE PAST YEAR?NO POINTS0 INTERPRETATIONNEGATIVE OCCUPATION: UNEMPLOYED. SEXUAL HX HAD SEX IN THE LAST 12 MONTHS (VAGINAL, ORAL, OR ANAL)?NO LMP:N/A HAVE YOU EVER HAD AN STD?NO REVIEWED WITH PT 11/10/17 1330 LASREVIEWED WITH PATIENT 12/21/17 1452 JSREVIEWED WITH PT 01/23/18 0922 BVREVIEWED WITH PT 09/10/18 1401 BVREVIEWED WITH PATIENT 02/20/19 0937 NLJREVIEWED WITH PT. 03/22/19 VDREVIEWED WITH PATIENT 04/16/2019. HOSPITALIZATION/MAJOR DIAGNOSTIC PROCEDURE SEE ABOVE SURGERY CHILD REVIEW OF SYSTEMS REVIEWED BY: PROVIDER: . CONSTITUTIONAL: ANY CHANGE IN YOUR MEDICAL CONDITION? NO . CHILLS NO . FEVER NO . INFECTION: DO YOU HAVE NEW INFECTIONS? NO . DO YOU HAVE HISTORY OF MRSA? NO . MUSCULOSKELETAL: ANY NEW PATTERNS OF PAIN OR NUMBNESS? NO . GASTROENTEROLOGY: ANY NEW CHANGE IN BOWEL CONTROL? NO . GENITOURINARY: ANY NEW CHANGE IN BLADDER CONTROL? NO . IS THERE A CHANCE YOU COULD BE ? NO . HEMATOLOGY/LYMPH: DO YOU TAKE ANY BLOOD THINNERS? (FOR EXAMPLE- COUMADIN, PLAVIX, AGGRENOX, PLATEL, PRADAXA, OR XARELTO) NO . WHEN WAS YOUR LAST DOSE? DATE: TIME: . NEUROLOGY: HAVE YOU FALLEN IN THE PAST 12 MONTHS? NO . ANY NEW EXTREMITY NUMBNESS OR WEAKNESS? NO . CARDIOLOGY: DO YOU HAVE A PACEMAKER OR DEFIBRILLATOR? NO . RESPIRATORY: HAVE YOU BEEN SICK IN THE PAST WEEK? NO . FEVER NO . FLU LIKE SYMPTOMS? NO . COUGH NO . INTEGUMENTARY: DO YOU HAVE ANY RASHES OR OPEN SORES? NO . ALLERGIC/IMMUNO: ARE YOU ALLERGIC TO IV DYE? NO . ANY NEW ALLERGIES? NO . PSYCHIATRIC: DO YOU HAVE THOUGHTS OF HURTING YOURSELF OR SOMEONE ELSE? NO . ARE YOU ABUSED, NEGLECTED, OR IN AN UNSAFE ENVIRONMENT? NO . ENDOCRINOLOGY: ARE YOU DIABETIC? NO . OTHER: DO YOU NEED ANY PRESCRIPTIONS? NO . IF YES, PLEASE LIST: ____ . ANY NEW PROBLEMS WITH YOUR MEDICATIONS? NO . WHEN DID YOU LAST EAT? 05/02/19 1900 . WHEN DID YOU LAST DRINK? 05/03/19 0800 . WHAT DID YOU LAST DRINK? WATER . NAME OF PERSON DRIVING YOU HOME? DAVID . DO YOU HAVE ANY OTHER QUESTIONS OR CONCERNS NO . VITAL SIGNS WT 214 LBS, HT 63 IN, BMI 37.90 INDEX, BP 103/59 MM HG, HR 71 /MIN, RR 16 /MIN, TEMP 98.3 F, OXYGEN SAT % 96, REVIEWED BY: EM. ASSESSMENTS MYALGIA, OTHER SITE - M79.18 (PRIMARY) PROCEDURES PN WORKMANS' COMP OPINION IN YOUR OPINION, WAS THE INCIDENT THAT THE PATIENT DESCRIBED THE COMPETENT MEDICAL CAUSE OF THIS INJURY/ILLNESS? YES ARE THE PATIENT'S COMPLAINTS CONSISTENT WITH HIS/HER HISTORY OF THE INJURY/ILLNESS? YES IS THE PATIENT'S HISTORY OF THE INJURY/ILLNESS CONSISTENT WITH YOUR OBJECTIVE FINDING? YES WHAT IS THE PERCENTAGE OF TEMPORARY IMPAIRMENT? MODERATE TO MARKED = 66.7% IS THE PATIENT WORKING? YES DOCTOR ON SITE: JERRY BRICE MD PN TRIGGER POINT INJECTION WITH STEROIDS PRE PROCEDURE DIAGNOSIS 1. MYALGIA 2. PAIN AT BILATERAL SHOULDER AREA. POST PROCEDURE DIAGNOSIS 1. MYALGIA 2. PAIN AT BILATERAL SHOULDER AREA. PROCEDURE TRIGGER POINT INJECTION AT RIGHT AND LEFT SHOULDER AREA. SURGEON DR. 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 I EVALUATED THE PATIENT AND REVIEWED THE CHART. THERE IS EVIDENCE OF BANDS OF TISSUE WITH RESTRICTION OF MOVEMENT AND PRESENCE OF TRIGGER POINT AT THE AFFECTED AREA. I WENT OVER THE RISKS, ALTERNATIVES, AND BENEFITS ASSOCIATED WITH THIS PROCEDURE. THE PATIENT WOULD LIKE TO PROCEED AND GIVES CONSENT TO PERFORM THE PROCEDURE. THE PATIENT DENIES UNEXPLAINABLE WEIGHT LOSS, FEVER, CHILLS, OR NEW CHANGES IN URINARY OR BOWEL CONTROL DESCRIPTION OF PROCEDURE THE PATIENT WAS BROUGHT TO THE PROCEDURE ROOM AND PLACED IN THE SITTING POSITION. THE AREA WAS CLEANED WITH ALCOHOL. THE PROCEDURE WAS DONE USING ASEPTIC STERILE TECHNIQUE. I CHECKED LATERALITY AND THE LEVEL WHERE THE PROCEDURE WAS GOING TO BE PERFORMED WITH THE PATIENT AND THE SUPPORTING STAFF AT THE MOMENT OF THE TIME OUT IN THE PROCEDURE ROOM. USING A 25-GAUGE NEEDLE, TRIGGER POINTS WERE INJECTED AT THE RIGHT AND LEFT SHOULDER AREA WITH A TOTAL OF 40 ML OF BUPIVACAINE 0.25% AND KENALOG 40 MG. THERE WAS NO EVIDENCE OF BLOOD, PARESTHESIA OR CEREBROSPINAL FLUID DURING THE PROCEDURE. THE PATIENT WAS SENT TO THE RECOVERY ROOM. THE PATIENT WAS MOVING THE EXTREMITIES AND DOING WELL. THERE WAS NO COMPLICATION DURING THE PROCEDURE POST PROCEDURE NOTE THE PATIENT WILL BE SEEN IN A FOLLOW UP IN THE NEXT FEW WEEKS. I AM LOOKING FOR LONG LASTING PAIN RELIEF WITH THIS INJECTION. INSTRUCTIONS WERE GIVEN, QUESTIONS WERE ANSWERED, AND THE PATIENT EXPRESSED UNDERSTANDING AND AGREES WITH THE PLAN. I, MADALYN PARK, DOCUMENTED THE ABOVE INFORMATION ACTING A SCRIBE FOR DR. TEE. I HAVE REVIEWED THE ABOVE DOCUMENT, WRITTEN BY MADALYN PARK SCRIBKarena AND I VERIFY THAT IT IS ACCURATE. PROCEDURE CODES 48053 INJ TRIGGER POINT / [facility] DISPOSITION & COMMUNICATION FOLLOW UP 3 WEEKS ELECTRONICALLY SIGNED BY JERRY TEE MD, MD ON 05/10/2019 AT 03:29 PM EST DISCLAIMER : THIS IS A VISIT SUMMARY EXTRACTED FROM THE [employer] CHART. IT IS NOT A COPY OF THE [employer] PROGRESS NOTE. REILLY
== END ==
LOC: M PAIN 10:00
PROVIDERS: ATTEND Anesthesiology
DX: M79.18 Myalgia, other site (principal)
CPT/HCPCS: 20552; J3301

== ENCOUNTER → 2019-06-03 | Outpatient (CLI) | payer OTHER ==
[~2019-06-03] MED LIST changes: -BUPIVACAINE HCL 0.25% 30 ML VIAL As Ordered ONE; -NORCO, ANEXSIA 5/325MG TABLET (HYDROcodone/ACETAMINOPHEN) As Ordered ONE; -TRIAMCINOLONE ACETONIDE SUSP 40 MG/ML VIAL (J3301) As Ordered ONE; -diazePAM 5 MG TAB As Ordered ONE
--- NOTE | 2019-06-06 03:07 | ECWPNPC ---
PATIENT NAME: TAHMINA FORBES : 1970 GENDER: FEMALE VISIT DATE: 06/03/2019 DISCHARGE DATE: 06/03/19 1034 VISIT LOCKED DATE TIME: PHYSICIAN: CARRIE PAGE RESOURCE: CARRIE PAGE REASON FOR APPOINTMENT 1. POST TPI HISTORY OF PRESENT ILLNESS HISTORY OF PRESENT ILLNESS: PAIN THE PATIENT DESCRIBES THE PAIN... 48-YEAR-OLD FEMALE IN FOR POST TPI FOLLOW-UP. SHE RATES HER PAIN PREPROCEDURE AT A 7 OUT OF 10 AND POST PROCEDURE AT A 2-4 OUT OF 10. SHE FEELS THE PROCEDURE WAS HELPFUL. SHE RATES HER PAIN CURRENTLY AT A 4 OUT OF 10 AND DESCRIBES IT ACHING, BURNING, SORE, AND TENDER. SHE FURTHER STATES THE PAIN IS STEADY. PATIENT WOULD LIKE TO DISCUSS A POTENTIAL INCREASE IN HER NUCYNTA IR. FALL RISK SCREENING: SCREENING :NO FALLS REPORTED IN THE LAST YEAR CURRENT MEDICATIONS TAKING LISINOPRIL-HYDROCHLOROTHIAZIDE 10-12.5 MG TABLET 1 TABLET ORALLY DAILY TAKING LEVOTHYROXINE SODIUM 150 MCG TABLET 1 TABLET ON AN EMPTY STOMACH IN THE MORNING ORALLY ONCE A DAY TAKING ROPINIROLE HCL 1 MG TABLET 1 TAB ORALLY BEFORE BEDTIME TAKING FLUOXETINE HCL 40 MG CAPSULE 1 CAPSULE IN THE MORNING ORALLY ONCE A DAY 80 MG TAKES TAKING ESTRACE 2 MG TABLET 1 TABLET ORALLY DAILY TAKING BUSPIRONE HCL 15 MG TABLET 1 TABLET ORALLY THREE TIMES DAILY TAKING TRAZODONE HCL 100 MG TABLET 1 TABLET AT BEDTIME ORALLY ONCE A DAY PRN TAKING PRAVASTATIN SODIUM 40 MG TABLET 1 TABLET ORALLY ONCE A DAY TAKING NUCYNTA ER 150 MG TABLET EXTENDED RELEASE 12 HOUR 1 TABLET ORALLY BEFORE BEDTIME MDD1 TAKING LYRICA 300 MG CAPSULE 1 CAP ORALLY BID MDD2 TAKING OXYBUTYNIN CHLORIDE ER 10 MG TABLET EXTENDED RELEASE 24 HOUR TAKE 1 TABLET BY MOUTH ONCE DAILY TAKING NUCYNTA 50 MG TABLET 1 TABLET ORALLY FOR PAIN Q8H PRN MDD3 TAKING TIZANIDINE HCL 4 MG TABLET 1 TABLET NEEDED ORALLY THREE TIMES A DAY MEDICATION LIST REVIEWED AND RECONCILED WITH THE PATIENT PAST MEDICAL HISTORY HYPERTENTION ANXIETY DEPRESSION BILAT. SHOULDER AND ELBOW PAIN HIP AND BACK PAIN IBS HYPOTHYROIDISM ALLERGIES N.K.D.A. SURGICAL HISTORY UMBILICAL HERNIA REPAIR CARPAL TUNNEL RELEASE-BILAT. BILAT. SHOULDER ARTHROSCOPY ROTATOR CUFF REPAIR TOTAL HYSTERECTOMY 2007 BILAT. ELBOW RELEASE FAMILY HISTORY FATHER: ALIVE 67 YRS, DIAGNOSED WITH UNSPECIFIED HEART DISEASE MOTHER: 64 YRS, SMOKER,ALS, EMPHYSEMA,LUNG CANCER 2 SISTER(S) - HEALTHY. 1DAUGHTER(S) - HEALTHY. MOM- ALS, EMPHYSEMA, LUNG CA. SOCIAL HISTORY GENERAL: TOBACCO USE ARE YOU A:FORMER SMOKER FORMER SMOKER.QUIT 9 YEARS AGO HOW LONG HAS IT BEEN SINCE YOU LAST SMOKED?> 10 YEARS HIV / HEP-C SCREENING HIV TEST OFFERED TO PATIENT:YES DATE OFFERED:05/10/2017 TEST ACCEPTED:NO REASON:PATIENT DECLINED OTHERS AT HOME: SPOUSE, CHILD, OTHER NON-RELATIVE,GRANDKIDS. DIET: REGULAR. LANGUAGE LANGUAGES SPOKEN:[place] RECREATIONAL DRUG USE DRUG USE?NO EXERCISE: NO REGULAR EXERCISE. 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 CLINIC PFS, CLERGY, PUBLIC HEALTH REFERRALS PFS REFERRAL NEEDED?NO CLERGY REFERRAL NEEDED?NO PUBLIC HEALTH REFERRAL NEEDED?NO WAS THE PROVIDER NOTIFIED OF ANY PERTINENT INFO?YES HAS THE PATIENT BEEN EDUCATED REGARDING HIS/HER PLAN OF CARE?YES HAS THE PATIENT BEEN EDUCATED REGARDING PAIN, THE RISK FOR PAIN, THE IMPORTANCE OF EFFECTIVE PAIN MANAGEMENT, AND THE PAIN ASSESSMENT PROCESS?YES LATEX QUESTIONNAIRE LATEX ALLERGY : HAVE YOU EVER DEVELOPED ANY TYPE OF REACTION AFTER HANDLING LATEX PRODUCTS SUCH RUBBER GLOVES, CONDOMS, DIAPHRAGMS, BALLOONS, SOCKS, OR UNDERWEAR?NO LATEX ALLERGY : HAVE YOU EVER DEVELOPED ANY TYPE OF REACTION DURING OR AFTER DENTAL APPOINTMENT, VAGINAL/RECTAL EXAMINATION, SURGICAL PROCEDURE, OR ANY OTHER EXPOSURE?NO LATEX RISK : HAVE YOU EVER HAD ANY DIFFICULTY BREATHING OR HIVES AFTER EATING OR HANDLING ANY FRUITS, OR VEGETABLES; SUCH KIWI, BANANAS, STONE FRUITS, OR CHESTNUTSNO LATEX RISK : DO YOU HAVE A PREVIOUS PERSONAL HISTORY OF MORE THAN NINE SURGERIES, SPINA BIFIDA, OR REPEATED CATHERIZATIONS? NO LATEX RISK : ARE YOU FREQUENTLY EXPOSED TO LATEX PRODUCTS IN YOUR OCCUPATION?NO DATE ASKED : 04/16/2019 CAFFEINE CAFFEINE USE?YES 2-3 SODAS DAILY ADVANCE DIRECTIVE ADVANCE DIRECTIVE DISCUSSED WITH PATIENT:YES 06/03/2019 PT HAS NO ADVANCED DIRECTIVE AND DOES NOT WANT INFORMATION AT THIS TIME - DECLINES ASSISTANCE WITH PAPERWORK. JS HOLINESS [id number] SHINTO MARITAL STATUS: . ALCOHOL SCREENING DID YOU HAVE A DRINK CONTAINING ALCOHOL IN THE PAST YEAR?NO POINTS0 INTERPRETATIONNEGATIVE OCCUPATION: UNEMPLOYED. SEXUAL HX HAD SEX IN THE LAST 12 MONTHS (VAGINAL, ORAL, OR ANAL)?NO LMP:N/A HAVE YOU EVER HAD AN STD?NO REVIEWED WITH PT 11/10/17 1330 LASREVIEWED WITH PATIENT 12/21/17 1452 JSREVIEWED WITH PT 01/23/18 0922 BVREVIEWED WITH PT 09/10/18 1401 BVREVIEWED WITH PATIENT 02/20/19 0937 NLJREVIEWED WITH PT. 03/22/19 VDREVIEWED WITH PATIENT 04/16/2019REVIEWED WITH PATIENT 06/03/2019 1005 JS. HOSPITALIZATION/MAJOR DIAGNOSTIC PROCEDURE SEE ABOVE SURGERY CHILD REVIEW OF SYSTEMS REVIEWED BY: PROVIDER: SHARRON MCKNIGHT-C . CONSTITUTIONAL: ANY CHANGE IN YOUR MEDICAL CONDITION? NO . CHILLS NO . FEVER NO . INFECTION: DO YOU HAVE NEW INFECTIONS? NO . DO YOU HAVE HISTORY OF MRSA? NO . MUSCULOSKELETAL: ANY NEW PATTERNS OF PAIN OR NUMBNESS? 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 GASTROENTEROLOGY: ANY NEW CHANGE IN BOWEL CONTROL? NO . GENITOURINARY: ANY NEW CHANGE IN BLADDER CONTROL? NO . IS THERE A CHANCE YOU COULD BE ? NO . HEMATOLOGY/LYMPH: DO YOU TAKE ANY BLOOD THINNERS? (FOR EXAMPLE- COUMADIN, PLAVIX, AGGRENOX, PLATEL, PRADAXA, OR XARELTO) NO . WHEN WAS YOUR LAST DOSE? DATE: TIME: . NEUROLOGY: HAVE YOU FALLEN IN THE PAST 12 MONTHS? NO . ANY NEW EXTREMITY NUMBNESS OR WEAKNESS? NO . CARDIOLOGY: DO YOU HAVE A PACEMAKER OR DEFIBRILLATOR? NO . RESPIRATORY: HAVE YOU BEEN SICK IN THE PAST WEEK? NO . FEVER NO . FLU LIKE SYMPTOMS? NO . COUGH NO . INTEGUMENTARY: DO YOU HAVE ANY RASHES OR OPEN SORES? NO . ALLERGIC/IMMUNO: ARE YOU ALLERGIC TO IV DYE? NO . ANY NEW ALLERGIES? NO . PSYCHIATRIC: DO YOU HAVE THOUGHTS OF HURTING YOURSELF OR SOMEONE ELSE? NO . ARE YOU ABUSED, NEGLECTED, OR IN AN UNSAFE ENVIRONMENT? NO . ENDOCRINOLOGY: ARE YOU DIABETIC? NO . OTHER: DO YOU NEED ANY PRESCRIPTIONS? YES . IF YES, PLEASE LIST: ____WOULD LIKE NUCYNTA 50 MG INCREASED IF POSSIBLE . ANY NEW PROBLEMS WITH YOUR MEDICATIONS? NO . WHEN DID YOU LAST EAT? ____ . WHEN DID YOU LAST DRINK? ____ . WHAT DID YOU LAST DRINK? ____ . NAME OF PERSON DRIVING YOU HOME? ____ . DO YOU HAVE ANY OTHER QUESTIONS OR CONCERNS YES, WOULD LIKE TO DISCUSS INCREASING HER NUCYNTA . VITAL SIGNS WT 219.4 LBS, HT 63 IN, BMI 38.86 INDEX, BP 93/50 MM HG, HR 67 /MIN, RR 18 /MIN, TEMP 97.7 F, OXYGEN SAT % 94%, SAFE IN ENV? (Y/N) YES, REVIEWED BY: DONNY06/03/2019 DISCUSSED LOW BP WITH PATIENT, STATES SHE FEELS FINE TODAY, NO DIZZINESS OR OTHER SYMPTOMS. STATES SHE DOES GET DIZZY OCCASSIONALLY. INFORMED PATIENT TO DISCUSS THIS WITH HER PCP IF IT IS HAPPENING OFTEN. JS. EXAMINATION GENERAL EXAMINATION: GENERALNO ACUTE DISTRESS, WELL NOURISHED AND HYDRATED. PSYCHAPPROPRIATE MOOD AND AFFECT . LUNGS:CLEAR TO AUSCULTATION BILATERALLY, NO WHEEZES, RHONCHI, RALES. HEART:NO MURMURS, REGULAR RATE AND RHYTHM. ASSESSMENTS PAIN IN RIGHT SHOULDER - M25.511 (PRIMARY) MYALGIA, OTHER SITE - M79.18 TREATMENT MYALGIA, OTHER SITE CLINICAL NOTES: 48-YEAR-OLD FEMALE IN FOR POST TPI FOLLOW-UP. GIVEN PRESENTING SYMPTOMS AND RESULTS OF PHYSICAL EXAMINATION RECOMMENDED PATIENT START TAKING HER NUCYNTA ER ON A SCHEDULED BASIS WITH FOLLOW-UP IN ONE MONTH TO DETERMINE EFFICACY TREATMENT. PATIENT HAS EXPRESSED UNDERSTANDING OF AND WAS IN AGREEMENT WITH TREATMENT PLAN. GIVEN TIME TO ASK QUESTIONS AND EXPRESS CONCERNS., ISTOP REGISTRY REVIEWED AND DEMONSTRATES COMPLLIANCE. (REF # [id number] ) BRINGS IN MEDICATIONS WHICH IS APPROPRIATE FOR WHAT WAS DISPENSED. RECENT URINE TOXICOLOGY REVIEWED. NO UNAUTHORIZED MEDICATIONS. NO ILLICIT SUBSTANCES AND PRESCRIBED MEDICATIONS WERE PRESENT. 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 IT IS NOT A COPY OF THE [employer] PROGRESS NOTE. REILLY
== END ==
LOC: M PAIN 09:30
PROVIDERS: ATTEND Family Medicine
DX: M25.511 Pain in right shoulder (principal); M79.18 Myalgia, other site; I10 Essential (primary) hypertension; F41.9 Anxiety disorder, unspecified; F32.9 Major depressive disorder, single episode, unspecified; K58.9 Irritable bowel syndrome, unspecified; E03.9 Hypothyroidism, unspecified; Z87.891 Personal history of nicotine dependence; Z79.899 Other long term (current) drug therapy

== ENCOUNTER 2019-07-08 11:34 | Emergency (ER) | payer OTHER ==
[~2019-07-08] VITALS: Ht 165.1 cm; Wt 101.1 kg
[2019-07-08] MEDS ORDERED: METH1TAB40 (11:43)
[2019-07-08] MEDS ORDERED: ACET1TAB55 (11:43)
[2019-07-08] MEDS ORDERED: LIDOCAINE 5% (LIDODERM) PATCH TD ONE (12:30)
[2019-07-08] MEDS ORDERED: BACLOFEN 10 MG TAB PO ONE (12:30)
[2019-07-08] MEDS ORDERED: PRED20TA PO (13:32)
[2019-07-08] MEDS ORDERED: LIDO5DIS41 TOP (13:32)
[2019-07-08] MEDS ORDERED: BACL10TA2 PO (13:42)
[2019-07-08 13:47] VITALS: BP 112/73
--- NOTE | 2019-07-08 13:47 | REP ---
CT LUMBAR SPINE WITHOUT CONTRAST: HISTORY: Midline low back pain radiating to the left leg. Injury. Comparison radiographs are from June 17, 2016. CT FINDINGS: Lumbar vertebral body heights are preserved. No fracture or collapse is seen. Alignment is normal. There is no evidence of spondylolysis or spondylolisthesis. Vascular calcification is seen in a normal caliber aorta. No extra spinal abnormality is observed. There are Schmorl's nodes on either side of the L1-2 and T12-L1 disc spaces. No disc herniation is seen in either of these levels. At L2-L3, there is mild diffuse disc bulging. No foraminal narrowing is seen. At L3-4, there is mild diffuse disc bulging. There is mild central canal stenosis due to disc bulging and developmentally short pedicles. Midline AP dimension of the thecal sac is 8 mm. No bony foraminal narrowing is seen. There is a mild left foraminal disc bulge at L3-4. At L4-L5, there is also mild to moderate central canal stenosis due to diffuse disc bulging, ligamentum flavum, and facet hypertrophy. There is no bony foraminal narrowing. Midline AP dimension of the thecal sac at the L4-5 is 7.3 mm. At L5-S1, there is a broad-based right posterior disc protrusion which flattens the ventral margin of the thecal sac and appears to contact the right S1 root. There is facet hypertrophy bilaterally. No bony foraminal narrowing is seen. IMPRESSION: No traumatic abnormality noted. Mild to moderate central canal stenosis at L4-5 and mild central canal stenosis at L3-4. There is a left foraminal disc bulge at L3-4 and a right posterior disc protrusion at L5-S1. Electronically Signed by Abdullahi Cline MD 07/08/2019 01:53 P
[2019-07-08] MEDS ORDERED: **NOTE PATIENT COMMENT** MISC XX SCH (21:00)
== END 2019-07-08 13:55 | disposition home or self-care (01) ==
LOC: M ED 11:34
DX: S39.012A Strain of muscle, fascia and tendon of lower back, initial encounter (principal); M51.26 Other intervertebral disc displacement, lumbar region; M48.07 Spinal stenosis, lumbosacral region; M54.30 Sciatica, unspecified side; X50.0XXA Overexertion from strenuous movement or load, initial encounter; Y92.89 Other specified places as the place of occurrence of the external cause; Y93.89 Activity, other specified; Y99.0 Civilian activity done for income or pay; I10 Essential (primary) hypertension; K57.32 Diverticulitis of large intestine without perforation or abscess without bleeding; F41.9 Anxiety disorder, unspecified; F32.9 Major depressive disorder, single episode, unspecified; E78.5 Hyperlipidemia, unspecified; E03.9 Hypothyroidism, unspecified; G47.00 Insomnia, unspecified; Z79.890 Hormone replacement therapy; Z79.899 Other long term (current) drug therapy

== ENCOUNTER → 2019-08-05 | Outpatient (CLI) | payer OTHER ==
[~2019-08-05] MED LIST changes: +ACET1TAB55; +BACL10TA2 PO; +CYCL-707 PO; -CYCL10TA PO; +GABA-282 PO; -GABA-843 PO; +LIDO5DIS41 TOP; +LISI10TA22 PO; +METH-1164; +PRED20TA PO; +PREG300C PO; +TIZA4TAB4 PO
--- NOTE | 2019-08-07 02:28 | ECWPNPC ---
PATIENT NAME: TAHMINA FORBES : 1970 GENDER: FEMALE VISIT DATE: 08/05/2019 DISCHARGE DATE: 08/05/19 1105 VISIT LOCKED DATE TIME: PHYSICIAN: CARRIE PAGE RESOURCE: CARRIE PAGE REASON FOR APPOINTMENT 1. W/C 4 WEEK [phone] - PAT COMPLETED HISTORY OF PRESENT ILLNESS HISTORY OF PRESENT ILLNESS: PAIN THE PATIENT DESCRIBES THE PAIN... 49-YEAR-OLD FEMALE IN FOR WORKER'S COMP. CHRONIC PAIN FOLLOW-UP. SHE RATES HER PAIN CURRENTLY AT A 5 OUT OF 10 AND DESCRIBES IT A CONSTANT ACHE. SHE FEELS THE WHEN NECESSARY DOSAGE OF NUCYNTA WAS INEFFECTIVE. SHE DOES FEEL HER MEDICATIONS ARE HELPFUL AND DENIES MED SIDE EFFECTS AT THIS TIME. FALL RISK SCREENING: SCREENING :NO FALLS REPORTED IN THE LAST YEAR CURRENT MEDICATIONS TAKING ROBAXIN 500 MG TABLET 2 TABLETS ORALLY QID PRN TAKING TYLENOL 325 MG TABLET 1-2 TABLETS ORALLY EVERY 4-6 HRS TAKING LEVOTHYROXINE SODIUM 125 MCG TABLET 1 TABLET ON AN EMPTY STOMACH IN THE MORNING ORALLY ONCE A DAY TAKING ROPINIROLE HCL 1 MG TABLET 1 TAB ORALLY BEFORE BEDTIME TAKING FLUOXETINE HCL 40 MG CAPSULE 1 CAPSULE IN THE MORNING ORALLY BID TAKING ESTRACE 2 MG TABLET 1 TABLET ORALLY DAILY TAKING BUSPIRONE HCL 15 MG TABLET 1 TABLET ORALLY THREE TIMES DAILY TAKING TRAZODONE HCL 100 MG TABLET 1 TABLET AT BEDTIME ORALLY ONCE A DAY PRN TAKING PRAVASTATIN SODIUM 40 MG TABLET 1 TABLET ORALLY ONCE A DAY TAKING OXYBUTYNIN CHLORIDE ER 10 MG TABLET EXTENDED RELEASE 24 HOUR TAKE 1 TABLET BY MOUTH ONCE DAILY TAKING LYRICA 200 MG CAPSULE 1 CAP ORALLY TID TAKING TIZANIDINE HCL 4 MG TABLET 1 TABLET NEEDED ORALLY THREE TIMES A DAY TAKING NUCYNTA ER 150 MG TABLET EXTENDED RELEASE 12 HOUR 1 TABLET ORALLY BEFORE BEDTIME MDD1 TAKING LISINOPRIL 10 MG TABLET 1 TABLET ORALLY ONCE A DAY NOT-TAKING LISINOPRIL-HYDROCHLOROTHIAZIDE 10-12.5 MG TABLET 1 TABLET ORALLY DAILY NOT-TAKING NUCYNTA 50 MG TABLET 1 TABLET ORALLY FOR PAIN Q8H PRN MDD3 MEDICATION LIST REVIEWED AND RECONCILED WITH THE PATIENT PAST MEDICAL HISTORY HYPERTENTION ANXIETY DEPRESSION BILAT. SHOULDER AND ELBOW PAIN HIP AND BACK PAIN IBS HYPOTHYROIDISM LOW BACK INJURY ALLERGIES N.K.D.A. SURGICAL HISTORY UMBILICAL HERNIA REPAIR CARPAL TUNNEL RELEASE-BILAT. BILAT. SHOULDER ARTHROSCOPY ROTATOR CUFF REPAIR TOTAL HYSTERECTOMY 2007 BILAT. ELBOW RELEASE FAMILY HISTORY FATHER: ALIVE 67 YRS, DIAGNOSED WITH UNSPECIFIED HEART DISEASE MOTHER: 64 YRS, SMOKER,ALS, EMPHYSEMA,LUNG CANCER 2 SISTER(S) - HEALTHY. 1DAUGHTER(S) - HEALTHY. MOM- ALS, EMPHYSEMA, LUNG CA. SOCIAL HISTORY GENERAL: TOBACCO USE ARE YOU A:FORMER SMOKER FORMER SMOKER.QUIT 9 YEARS AGO HOW LONG HAS IT BEEN SINCE YOU LAST SMOKED?> 10 YEARS LATEX QUESTIONNAIRE LATEX ALLERGY : HAVE YOU EVER DEVELOPED ANY TYPE OF REACTION AFTER HANDLING LATEX PRODUCTS SUCH RUBBER GLOVES, CONDOMS, DIAPHRAGMS, BALLOONS, SOCKS, OR UNDERWEAR?NO LATEX ALLERGY : HAVE YOU EVER DEVELOPED ANY TYPE OF REACTION DURING OR AFTER DENTAL APPOINTMENT, VAGINAL/RECTAL EXAMINATION, SURGICAL PROCEDURE, OR ANY OTHER EXPOSURE?NO LATEX RISK : HAVE YOU EVER HAD ANY DIFFICULTY BREATHING OR HIVES AFTER EATING OR HANDLING ANY FRUITS, OR VEGETABLES; SUCH KIWI, BANANAS, STONE FRUITS, OR CHESTNUTSNO LATEX RISK : DO YOU HAVE A PREVIOUS PERSONAL HISTORY OF MORE THAN NINE SURGERIES, SPINA BIFIDA, OR REPEATED CATHERIZATIONS? NO LATEX RISK : ARE YOU FREQUENTLY EXPOSED TO LATEX PRODUCTS IN YOUR OCCUPATION?NO DATE ASKED : 08/02/2019 ALCOHOL SCREENING DID YOU HAVE A DRINK CONTAINING ALCOHOL IN THE PAST YEAR?NO POINTS0 INTERPRETATIONNEGATIVE RECREATIONAL DRUG USE DRUG USE?NO CAFFEINE CAFFEINE USE?YES 2-3 SODAS DAILY SEXUAL HX HAD SEX IN THE LAST 12 MONTHS (VAGINAL, ORAL, OR ANAL)?NO LMP:N/A HAVE YOU EVER HAD AN STD?NO HIV / HEP-C SCREENING HIV TEST OFFERED TO PATIENT:YES DATE OFFERED:05/10/2017 TEST ACCEPTED:NO REASON:PATIENT DECLINED ISLAM [id number] RELIGION LANGUAGE LANGUAGES SPOKEN:CITIZEN OF [place] LEARNING BARRIERS / SPECIAL NEEDS BARRIERS TO LEARNING?NO HEARING IMPAIRED?NO VISION IMPAIRED?NO COGNITIVELY IMPAIRED?NO READINESS TO LEARN?YES LEARNING PREFERENCES?NO LEARNING CAPABILITIES PRESENT?YES EMOTIONAL BARRIERS?NO SPECIAL DEVICES?NO BILLET RECORDER NEEDED?NO OCCUPATION: UNEMPLOYED. DIET: REGULAR. EXERCISE: NO REGULAR EXERCISE. MARITAL STATUS: . OTHERS AT HOME: SPOUSE, CHILD, OTHER NON-RELATIVE,GRANDKIDS. NEW PATIENT PAIN DIARY TODAY'S VISITNOTES 08/02/2019 PATIENT DESCRIBES PAIN :ACHING, HAVE IT ALL THE TIME, SHARP, SHOOTING FROM 0-10, WHAT LEVEL IS YOUR PAIN TODAY?5 SHOULDERS - 5 ; LOW BACK & LEG - 7 PRECIPITATING FACTORS HOUSEWORK, YARDWORK ALLEVIATING FACTORS SOMETIMES MEDICATION HELPS - MUSCLE RELAXER IMPACT ON FUNCTION UNABLE TO PERFORM YARDWORK OR HOUSEWORK. PAIN CLINIC PFS, CLERGY, PUBLIC HEALTH REFERRALS PFS REFERRAL NEEDED?NO CLERGY REFERRAL NEEDED?NO PUBLIC HEALTH REFERRAL NEEDED?NO WAS THE PROVIDER NOTIFIED OF ANY PERTINENT INFO?YES HAS THE PATIENT BEEN EDUCATED REGARDING HIS/HER PLAN OF CARE?YES HAS THE PATIENT BEEN EDUCATED REGARDING PAIN, THE RISK FOR PAIN, THE IMPORTANCE OF EFFECTIVE PAIN MANAGEMENT, AND THE PAIN ASSESSMENT PROCESS?YES ADVANCE DIRECTIVE ADVANCE DIRECTIVE DISCUSSED WITH PATIENT:YES 06/03/2019 PT HAS NO ADVANCED DIRECTIVE AND DOES NOT WANT INFORMATION AT THIS TIME - DECLINES ASSISTANCE WITH PAPERWORK. JS HOSPITALIZATION/MAJOR DIAGNOSTIC PROCEDURE SEE ABOVE SURGERY CHILD REVIEW OF SYSTEMS REVIEWED BY: PROVIDER: SHARRON HIRSCH . CONSTITUTIONAL: ANY CHANGE IN YOUR MEDICAL CONDITION? NO . CHILLS NO . FEVER NO . INFECTION: DO YOU HAVE NEW INFECTIONS? NO . DO YOU HAVE HISTORY OF MRSA? NO . MUSCULOSKELETAL: ANY NEW PATTERNS OF PAIN OR NUMBNESS? YES, HURT HER LOW BACK ON JULY AT WORK, NOW HAS PAIN ACROSS THE LOW BACK AND IT SHOOTS INTO THE RIGHT HIP AND DOWN THE LEFT LEG . GASTROENTEROLOGY: ANY NEW CHANGE IN BOWEL CONTROL? NO . GENITOURINARY: ANY NEW CHANGE IN BLADDER CONTROL? NO . IS THERE A CHANCE YOU COULD BE ? NO . HEMATOLOGY/LYMPH: DO YOU TAKE ANY BLOOD THINNERS? (FOR EXAMPLE- COUMADIN, PLAVIX, AGGRENOX, PLATEL, PRADAXA, OR XARELTO) NO . WHEN WAS YOUR LAST DOSE? DATE: TIME: . NEUROLOGY: HAVE YOU FALLEN IN THE PAST 12 MONTHS? NO . ANY NEW EXTREMITY NUMBNESS OR WEAKNESS? NO . CARDIOLOGY: DO YOU HAVE A PACEMAKER OR DEFIBRILLATOR? NO . RESPIRATORY: HAVE YOU BEEN SICK IN THE PAST WEEK? NO . FEVER NO . FLU LIKE SYMPTOMS? NO . COUGH NO . INTEGUMENTARY: DO YOU HAVE ANY RASHES OR OPEN SORES? NO . ALLERGIC/IMMUNO: ARE YOU ALLERGIC TO IV DYE? NO . ANY NEW ALLERGIES? NO . PSYCHIATRIC: DO YOU HAVE THOUGHTS OF HURTING YOURSELF OR SOMEONE ELSE? NO . ARE YOU ABUSED, NEGLECTED, OR IN AN UNSAFE ENVIRONMENT? NO . ENDOCRINOLOGY: ARE YOU DIABETIC? NO . OTHER: DO YOU NEED ANY PRESCRIPTIONS? YES . IF YES, PLEASE LIST: ____LYRICA, TIZANIDINE . ANY NEW PROBLEMS WITH YOUR MEDICATIONS? YES, PATIENT STOPPED TAKING THE NUCYNTA 50 MG SHE FELT LIKE IT WAS NOT HELPING WITH THE PAIN AT ALL. STATES SHE IS TAKING THE NUCYNTA ER ON A SCHEDULED BASIS NOW AND IT HELPS SLIGHTLY . WHEN DID YOU LAST EAT? ____ . WHEN DID YOU LAST DRINK? ____ . WHAT DID YOU LAST DRINK? ____ . NAME OF PERSON DRIVING YOU HOME? ____ . DO YOU HAVE ANY OTHER QUESTIONS OR CONCERNS NO . EXAMINATION GENERAL EXAMINATION: GENERALNO ACUTE DISTRESS, WELL NOURISHED AND HYDRATED. PSYCHAPPROPRIATE MOOD AND AFFECT , ORIENTED X 3. ASSESSMENTS PAIN IN RIGHT SHOULDER - M25.511 (PRIMARY) MYALGIA, OTHER SITE - M79.18 TREATMENT PAIN IN RIGHT SHOULDER INCREASE NUCYNTA TABLET, 75 MG, 1 TABLET, ORALLY, Q8H PRN MDD2, 30 DAYS, 60, REFILLS 0 REFILL LYRICA CAPSULE, 200 MG, 1 CAP, ORALLY, TID, 30 DAYS, 90 CAPSULE CLINICAL NOTES: 49-YEAR-OLD FEMALE IN FOR CHRONIC PAIN FOLLOW-UP. GIVEN PRESENTING SYMPTOMS RECOMMEND INCREASING NUCYNTA TO 75 MG EVERY 8 HOURS NEEDED FOR PAIN MDD OF 2 WITH FOLLOW-UP IN CLINIC IN 2 MONTHS TO DETERMINE EFFICACY OF TREATMENT. PATIENT HAS EXPRESSED UNDERSTANDING OF AND WAS IN AGREEMENT WITH TREATMENT PLAN. GIVEN TIME TO ASK QUESTIONS AND EXPRESS CONCERNS. , ISTOP REGISTRY REVIEWED AND DEMONSTRATES COMPLLIANCE. (REF # [id number] ) BRINGS IN MEDICATIONS WHICH IS APPROPRIATE FOR WHAT WAS DISPENSED. RECENT URINE TOXICOLOGY REVIEWED. NO UNAUTHORIZED MEDICATIONS. NO ILLICIT SUBSTANCES AND PRESCRIBED MEDICATIONS WERE PRESENT. TELEHEALTH VISIT PERFORMED VIA ZOOM. TIME SPENT WITH PATIENT 7 MINUTES. MYALGIA, OTHER SITE REFILL TIZANIDINE HCL TABLET, 4 MG, 1 TABLET NEEDED, ORALLY, THREE TIMES A DAY, 30 DAYS, 90 TABLET OTHERS NOTES: NO VITALS OBTAINED DUE TO VIRTUAL VISIT. PRE-SCREENING COMPLETED 08/02/2019 1655 JS. DISPOSITION & COMMUNICATION FOLLOW UP 2 MONTHS (REASON: CHRONIC PAIN) ELECTRONICALLY SIGNED BY ROXANNA MIRANDA ON 08/06/2019 AT 02:35 PM EDT DISCLAIMER : THIS IS A VISIT SUMMARY EXTRACTED FROM THE [employer] CHART. IT IS NOT A COPY OF THE [facility] PROGRESS NOTE. MTDD
== END ==
LOC: M TMPAIN 10:15 → M PAIN 10:15
PROVIDERS: ATTEND Family Medicine
DX: M25.511 Pain in right shoulder (principal); M79.18 Myalgia, other site; Z79.899 Other long term (current) drug therapy; Z87.891 Personal history of nicotine dependence

== ENCOUNTER → 2019-08-08 | Outpatient (CLI) | payer OTHER ==
[~2019-08-08] MED LIST changes: -GABA-282 PO; +GABA-843 PO; -LISI10TA22 PO; -METH-1164; +METH1TAB40; -PREG300C PO; -TIZA4TAB4 PO
[2019-08-08 12:34] LABS: COLLAGEN EPINEPHRINE 120 SECONDS (74-162)
[2019-08-08 12:37] LABS: PLATELET COUNT, AUTOMATED 136 10^3/uL (150-450)
[2019-08-08 12:48] LABS: INR 0.91
[2019-08-08 12:49] LABS: PARTIAL THROMBOPLASTIN TIME 32.2 SECONDS (25.0-38.4)
== END ==
LOC: M WUC 10:58
PROVIDERS: ATTEND Physical Medicine & Rehabilitation
DX: D69.1 Qualitative platelet defects (principal); D68.9 Coagulation defect, unspecified

== ENCOUNTER → 2019-09-19 | Outpatient (CLI) | payer OTHER ==
[~2019-09-19] MED LIST changes: +GABA-282 PO; -GABA-843 PO; +LISI10TA22 PO; +METH-1164; -METH1TAB40; +PREG300C PO; +TIZA4TAB4 PO
== END ==
LOC: M PLALAB 13:52
PROVIDERS: ATTEND Internal Medicine Rheumatology
DX: M79.18 Myalgia, other site (principal)

== ENCOUNTER → 2019-09-20 | Outpatient (CLI) | payer OTHER ==
[~2019-09-20] MED LIST changes: -GABA-282 PO; +GABA-843 PO; -LISI10TA22 PO; -METH-1164; +METH1TAB40; -PREG300C PO; -TIZA4TAB4 PO
[2019-09-20 14:00] LABS: PLATELET COUNT, AUTOMATED 142 10^3/uL (150-450)
== END ==
LOC: M LAB 13:06
PROVIDERS: ATTEND Physical Medicine & Rehabilitation
DX: D69.1 Qualitative platelet defects (principal)

== ENCOUNTER → 2019-09-20 | Outpatient (CLI) | payer OTHER | LOC: M LABSMTC 11:15 | PROVIDERS: ATTEND Physical Medicine & Rehabilitation | DX: Z03.818 Encounter for observation for suspected exposure to other biological agents ruled out (principal) ==

== ENCOUNTER 2019-10-15 07:18 | Emergency (ER) | payer OTHER ==
[~2019-10-15] VITALS: Ht 162.6 cm; Wt 105.7 kg
[2019-10-15] MEDS ORDERED: ACETAMINOPHEN 500 MG TAB PO ONE (07:45)
[2019-10-15] MEDS ORDERED: PANTOPRAZOLE 40MG VIAL (C9113 PER 1) IV ONE (07:45)
[2019-10-15] MEDS ORDERED: NS 1,000 ML IV ONE (07:45)
[2019-10-15 08:43] LABS: BASO % 0.5 % (0.0-1.0); EOS # 0.1 10^3/uL (0.0-0.5); EOS % 1.2 % (0.0-3.0); HEMOGLOBIN 13.2 g/dl (12.0-15.5); LYMPH # 1.3 10^3/uL (1.5-5.0); LYMPH % 15.6 % (24.0-44.0); MEAN CORPUSCULAR HEMOGLOBIN 30.4 pg (27.0-33.0); MEAN CORPUSCULAR VOLUME 92.2 fl (80.0-96.0); MONO # 0.6 10^3/uL (0.0-0.8); NEUTROPHILS # 6.2 10^3/uL (1.5-8.5); NEUTROPHILS % 75.5 % (36.0-66.0); PLATELET COUNT, AUTOMATED 133 10^3/uL (150-450); RED BLOOD COUNT 4.34 10^6/uL (4.00-5.40); WHITE BLOOD COUNT 8.2 10^3/uL (4.0-10.0)
[2019-10-15 08:55] LABS: INR 0.93; PARTIAL THROMBOPLASTIN TIME 31.4 SECONDS (25.0-38.4); PROTHROMBIN TIME 12.2 SECONDS (11.8-14.0)
[2019-10-15] MEDS ORDERED: LISI10TA4 PO (09:19)
[2019-10-15] MEDS ORDERED: TIZA4TAB4 PO (09:19)
[2019-10-15] MEDS ORDERED: PREG300C PO (09:19)
[2019-10-15 09:34] LABS: ALBUMIN 3.6 GM/DL (3.2-5.2); ALT/SGPT 40 U/L (12-78); BILIRUBIN,DIRECT 0.1 MG/DL (0.0-0.2); BILIRUBIN,TOTAL 0.4 MG/DL (0.2-1.0); BLOOD UREA NITROGEN 9 MG/DL (7-18); CALCIUM LEVEL 8.6 MG/DL (8.5-10.1); CARBON DIOXIDE LEVEL 27 MEQ/L (21-32); CHLORIDE LEVEL 105 MEQ/L (98-107); CREATININE FOR GFR 0.78 MG/DL (0.55-1.30); GLOMERULAR FILTRATION RATE > 60.0 (>51); GLUCOSE, FASTING 98 MG/DL (70-100); LIPASE 58 U/L (73-393); POTASSIUM SERUM 4.5 MEQ/L (3.5-5.1); SODIUM LEVEL 138 MEQ/L (136-145); TOTAL PROTEIN 6.6 GM/DL (6.4-8.2)
[2019-10-15] MEDS ORDERED: ISOVUE-370 76% 100ML VIAL As Ordered ONE (10:35)
--- NOTE | 2019-10-15 10:39 | REP ---
REASON: Coronavirus workup. COMPARISON: 08/15/2017 The technique utilized in obtaining the radiograph has magnified the cardiac silhouette and accentuated the interstitial markings. Subtle bibasilar discoid opacities have developed since the last exam. There are no patchy opacities or pleural effusions. The heart is not enlarged and the pleural angles are sharp. The osseous structures are stable and intact. IMPRESSION: Suspect bibasilar minimal discoid subsegmental atelectatic change. Electronically Signed by Slim Irizarry DO 10/15/2019 11:40 A
[2019-10-15 11:48] VITALS: BP 135/65
--- NOTE | 2019-10-15 14:10 | REP ---
REASON FOR EXAM: Diarrhea and abdominal pain. COMPARISON: 09/22/2011, the latest prior. CONTRAST: 100 mL Isovue 370. There is no significant change in the appearance of the lung bases. There are no pleural or pericardial effusions. Subtle bibasilar discoid atelectasis/fibrotic changes are noted. The liver, gallbladder, spleen, pancreas, adrenal glands and kidneys are unchanged and again seen to be within normal limits. The abdominal aorta and para-aortic regions are unchanged and again seen to be within normal limits. No free fluid or free air has developed in the abdomen or pelvis. The intra-abdominal and intrapelvic bowel loops and their mesenteries are again seen to be within normal limits. There is no intra-abdominal or intrapelvic mass or adenopathy. Once again, there is a small amount of central mesentery which has a dusky hue status quo. Bone window technique throughout the examination shows the osseous structures to be stable and intact. There is an unchanged small left paraumbilical hernia and again, through which only mesentery protrudes. IMPRESSION: No significant change from the prior exam. Likely slight mesenteric fibrosis centrally. No acute intra-abdominal or intrapelvic disease is noted. The small left paraumbilical hernia containing only mesentery is unchanged. Electronically Signed by Slim Irizarry DO 10/15/2019 04:05 P
== END 2019-10-15 12:36 | disposition home or self-care (01) ==
LOC: M ED 07:18
DX: K92.1 Melena (principal); K64.9 Unspecified hemorrhoids; B34.1 Enterovirus infection, unspecified; B34.8 Other viral infections of unspecified site; I10 Essential (primary) hypertension; K57.92 Diverticulitis of intestine, part unspecified, without perforation or abscess without bleeding; E03.9 Hypothyroidism, unspecified; G89.29 Other chronic pain; M54.9 Dorsalgia, unspecified; F41.9 Anxiety disorder, unspecified; F32.9 Major depressive disorder, single episode, unspecified; K58.9 Irritable bowel syndrome, unspecified; Z87.891 Personal history of nicotine dependence; Z79.899 Other long term (current) drug therapy
CPT/HCPCS: 71045; 74177; 80048; 80076; 81001; 83605; 83690; 85025; 85610; 85730; 87040; 87486; 87507; 87581; 87633; 87798; 96361; 96374; 99284; C9113; Q9967

== ENCOUNTER → 2019-12-06 | Outpatient (CLI) | payer OTHER ==
[~2019-12-06] MED LIST changes: +LISI10TA4 PO; +PREG300C PO; +TIZA4TAB4 PO
[2019-12-06 14:50] LABS: BLOOD UREA NITROGEN 8 MG/DL (7-18); CREATININE FOR GFR 0.78 MG/DL (0.55-1.30); GLOMERULAR FILTRATION RATE > 60.0 (>51)
== END ==
LOC: M PLALAB 10:58
PROVIDERS: ATTEND Physical Medicine & Rehabilitation
DX: M51.27 Other intervertebral disc displacement, lumbosacral region (principal); M48.07 Spinal stenosis, lumbosacral region; M47.817 Spondylosis without myelopathy or radiculopathy, lumbosacral region

== ENCOUNTER → 2020-02-02 | Outpatient (CLI) | payer OTHER | LOC: M LABSMTC 08:53 | PROVIDERS: ATTEND Physical Medicine & Rehabilitation | DX: Z20.828 Contact with and (suspected) exposure to other viral communicable diseases (principal) ==

== ENCOUNTER → 2020-02-11 | Outpatient (CLI) | payer OTHER ==
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
== END ==
LOC: M PAIN 09:30
PROVIDERS: ATTEND Family Medicine
DX: M25.511 Pain in right shoulder (principal); M25.512 Pain in left shoulder; M25.521 Pain in right elbow; M25.522 Pain in left elbow; I10 Essential (primary) hypertension; F41.9 Anxiety disorder, unspecified; F32.9 Major depressive disorder, single episode, unspecified; E03.9 Hypothyroidism, unspecified; N32.81 Overactive bladder; Z87.891 Personal history of nicotine dependence; Z79.899 Other long term (current) drug therapy

== ENCOUNTER → 2020-04-30 | Outpatient (CLI) | payer OTHER ==
[~2020-04-30] MED LIST changes: +GABA-282 PO; -GABA-843 PO
--- NOTE | 2020-05-01 07:28 | ECWPNPC ---
PATIENT NAME: TAHMINA FORBES : 1970 GENDER: FEMALE VISIT DATE: 04/30/2020 DISCHARGE DATE: 04/30/20923 VISIT LOCKED DATE TIME: PHYSICIAN: CARRIE PAGE RESOURCE: CARRIE PAGE REASON FOR APPOINTMENT 1. SHOULDER/ELBOW HISTORY OF PRESENT ILLNESS DEPRESSION SCREENING: PHQ-9 LITTLE INTEREST OR PLEASURE IN DOING THINGSMORE THAN HALF THE DAYS FEELING DOWN, DEPRESSED, OR HOPELESSSEVERAL DAYS TROUBLE FALLING OR STAYING ASLEEP, OR SLEEPING TOO MUCHNEARLY EVERY DAY FEELING TIRED OR HAVING LITTLE ENERGYNEARLY EVERY DAY POOR APPETITE OR OVEREATING MORE THAN HALF THE DAYS FEELING BAD ABOUT YOURSELF-OR THAT YOU ARE A FAILURE OR HAVE LET YOURSELF OR YOUR FAMILY DOWN MORE THAN HALF THE DAYS TROUBLE CONCENTRATING ON THINGS, SUCH READING THE NEWSPAPER OR WATCHING TELEVISION NOT AT ALL MOVING OR SPEAKING SO SLOWLY THAT OTHER PEOPLE COULD HAVE NOTICED. OR THE OPPOSITE- BEING SO FIDGETY OR RESTLESS THAT YOU HAVE BEEN MOVING AROUND A LOT MORE THAN USUALNOT AT ALL THOUGHTS THAT YOU WOULD BE BETTER OFF , OR OF HURTING YOURSELF IN SOME WAY?NOT AT ALL TOTAL SCORE:13 INTERPRETATIONMODERATE DEPRESSION PHQ-2 (2015 EDITION) LITTLE INTEREST OR PLEASURE IN DOING THINGS?MORE THAN HALF THE DAYS FEELING DOWN, DEPRESSED, OR HOPELESS?MORE THAN HALF THE DAYS TOTAL SCORE4 49-YEAR-OLD FEMALE IN FOR CHRONIC PAIN FOLLOW-UP. SHE RATES HER PAIN CURRENTLY AT A 6 OUT OF 10 AND DESCRIBES IT ACHING, CONTINUOUS AND THROBBING. PATIENT FEELS HER MEDICATIONS ARE HELPFUL AND DENIES MED SIDE EFFECTS AT THIS TIME. GENERAL: -. FALL RISK SCREENING: SCREENING :NO FALLS REPORTED IN THE LAST YEAR PAIN SCREENING: PATIENT HAS A COMPLAINT OF ACUTE OR CHRONIC PAIN :YES LOCATION OF PAIN:BOTH SHOULDERS, OTHER: BILATERAL ELBOWS. INTENSITY OF PAIN (SCALE OF 1 TO 10):6 WHAT DOES YOUR PAIN FEEL LIKE:ACHING, CONTINOUS, THROBBING DURATION:CONTINOUS, CONSTANT, STEADY, AWAKENS FROM SLEEP PAIN IS INCREASED BY:ACTIVITIES PAIN IS DECREASED BY:USE OF PAIN MEDICATIONS MUSCLE RELAXER HELPS SOME. TREATMENT/MEDICATIONS USED TO MANAGE PAIN: NUCINTA LEVEL OF RELIEF FROM PAIN TREATMENTS IN THE PAST:25% NURSING NOTE: -. PAIN CENTER INTAKE QUESTIONS: DO YOU HAVE A HISTORY OF MRSA? :NO DO YOU TAKE A BLOOD THINNERS? :NO DO YOU HAVE ANY BLEEDING DISORDERS? :NO ANY NEW NUMBNESS OR WEAKNESS IN YOUR LEGS OR ARMS? :NO ANY PACEMAKER,DEFIBRILLATOR, OR DORSAL COLUMN STIMULATOR? :NO DO YOU HAVE ANY RASHES OR OPEN SORES? :NO ARE YOU ALLERGIC TO IV DYE? :NO ARE YOU DIABETIC? :NO ANY NEW PROBLEMS WITH YOUR MEDICATIONS? :NO HAVE YOU RECEIVED A VACCINE IN THE PAST 30 DAYS? :NO DO YOU PLAN TO RECEIVE A VACCINE IN THE NEXT 21 DAYS? :NO DO YOU NEED ANY PRESCRIPTION? :NO DO YOU TAKE ANY IMMUNOSUPPRESSIVE MEDICATIONS? :NO IS THERE A CHANCE YOU COULD BE ? :NO ARE YOU BREAST FEEDING? :NO CURRENT MEDICATIONS TAKING ROBAXIN 500 MG TABLET 2 TABLETS ORALLY QID PRN TAKING TYLENOL 325 MG TABLET 1-2 TABLETS ORALLY EVERY 4-6 HRS TAKING LEVOTHYROXINE SODIUM 137 MCG CAPSULE 1 TABLET ON AN EMPTY STOMACH IN THE MORNING ORALLY ONCE A DAY TAKING ROPINIROLE HCL 1 MG TABLET 1 TAB ORALLY BEFORE BEDTIME TAKING ESTRACE 2 MG TABLET 1 TABLET ORALLY DAILY TAKING BUSPIRONE HCL 15 MG TABLET 1 TABLET ORALLY THREE TIMES DAILY TAKING TRAZODONE HCL 100 MG TABLET 1 TABLET AT BEDTIME ORALLY ONCE A DAY PRN TAKING PRAVASTATIN SODIUM 40 MG TABLET 1 TABLET ORALLY ONCE A DAY TAKING OXYBUTYNIN CHLORIDE ER 10 MG TABLET EXTENDED RELEASE 24 HOUR TAKE 1 TABLET BY MOUTH ONCE DAILY TAKING LISINOPRIL 10 MG TABLET 1 TABLET ORALLY ONCE A DAY TAKING LYRICA 300 MG CAPSULE 1 CAP ORALLY TWICE DAILY TAKING TIZANIDINE HCL 4 MG TABLET 1 TABLET NEEDED ORALLY THREE TIMES A DAY TAKING NUCYNTA 75 MG TABLET 1 TABLET ORALLY Q8H PRN MDD2 TAKING NUCYNTA ER 150 MG TABLET EXTENDED RELEASE 12 HOUR 1 TABLET ORALLY BEFORE BEDTIME MDD1 TAKING CYMBALTA 60 MG CAPSULE DELAYED RELEASE PARTICLES 1 CAPSULE ORALLY ONCE A DAY TAKING MULTIVITAMIN ADULTS 50+ - TABLET DIRECTED ORALLY DAILY NOT-TAKING FLUOXETINE HCL 40 MG CAPSULE 1 CAPSULE IN THE MORNING ORALLY BID NOT-TAKING LISINOPRIL-HYDROCHLOROTHIAZIDE 10-12.5 MG TABLET 1 TABLET ORALLY DAILY MEDICATION LIST REVIEWED AND RECONCILED WITH THE PATIENT PAST MEDICAL HISTORY HYPERTENTION ANXIETY DEPRESSION BILAT. SHOULDER AND ELBOW PAIN HIP AND BACK PAIN IBS HYPOTHYROIDISM LOW BACK INJURY OVERACTIVE BLADDER ALLERGIES N.K.D.A. SOCIAL HISTORY GENERAL: TOBACCO USE ARE YOU A:FORMER SMOKER FORMER SMOKER.QUIT 9 YEARS AGO HOW LONG HAS IT BEEN SINCE YOU LAST SMOKED?> 10 YEARS LATEX QUESTIONNAIRE LATEX ALLERGY : HAVE YOU EVER DEVELOPED ANY TYPE OF REACTION AFTER HANDLING LATEX PRODUCTS SUCH RUBBER GLOVES, CONDOMS, DIAPHRAGMS, BALLOONS, SOCKS, OR UNDERWEAR?NO LATEX ALLERGY : HAVE YOU EVER DEVELOPED ANY TYPE OF REACTION DURING OR AFTER DENTAL APPOINTMENT, VAGINAL/RECTAL EXAMINATION, SURGICAL PROCEDURE, OR ANY OTHER EXPOSURE?NO LATEX RISK : HAVE YOU EVER HAD ANY DIFFICULTY BREATHING OR HIVES AFTER EATING OR HANDLING ANY FRUITS, OR VEGETABLES; SUCH KIWI, BANANAS, STONE FRUITS, OR CHESTNUTSNO LATEX RISK : DO YOU HAVE A PREVIOUS PERSONAL HISTORY OF MORE THAN NINE SURGERIES, SPINA BIFIDA, OR REPEATED CATHERIZATIONS? NO LATEX RISK : ARE YOU FREQUENTLY EXPOSED TO LATEX PRODUCTS IN YOUR OCCUPATION?NO DATE ASKED : 04/30/2020 ALCOHOL USE: NO. ALCOHOL SCREENING DID YOU HAVE A DRINK CONTAINING ALCOHOL IN THE PAST YEAR?NO POINTS0 INTERPRETATIONNEGATIVE RECREATIONAL DRUG USE DRUG USE?NO CAFFEINE CAFFEINE USE?YES 2-3 SODAS DAILY SEXUAL HX HAD SEX IN THE LAST 12 MONTHS (VAGINAL, ORAL, OR ANAL)?NO LMP:N/A HAVE YOU EVER HAD AN STD?NO HIV / HEP-C SCREENING HIV TEST OFFERED TO PATIENT:YES DATE OFFERED:05/10/2017 TEST ACCEPTED:NO REASON:PATIENT DECLINED VOODOO [id number] WORSHIP LANGUAGE LANGUAGES SPOKEN:HEBREW LEARNING BARRIERS / SPECIAL NEEDS CHANGE FROM LAST VISIT?YES BARRIERS TO LEARNING?NO HEARING IMPAIRED?NO VISION IMPAIRED?NO COGNITIVELY IMPAIRED?NO READINESS TO LEARN?YES LEARNING PREFERENCES?NO LEARNING CAPABILITIES PRESENT?YES EMOTIONAL BARRIERS?NO 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 DIET: REGULAR. EXERCISE: NO REGULAR EXERCISE. MARITAL STATUS: . OTHERS AT HOME: SPOUSE, CHILD, OTHER NON-RELATIVE,GRANDKIDS. TODAY'S VISITNOTES 08/02/2019 PATIENT DESCRIBES PAIN :ACHING, HAVE IT ALL THE TIME, SHARP, SHOOTING FROM 0-10, WHAT LEVEL IS YOUR PAIN TODAY?5 SHOULDERS - 5 ; LOW BACK & LEG - 7 PRECIPITATING FACTORS HOUSEWORK, YARDWORK ALLEVIATING FACTORS SOMETIMES MEDICATION HELPS - MUSCLE RELAXER IMPACT ON FUNCTION UNABLE TO PERFORM YARDWORK OR HOUSEWORK. - PFS REFERRAL NEEDED?NO CLERGY REFERRAL NEEDED?NO PUBLIC HEALTH REFERRAL NEEDED?NO WAS THE PROVIDER NOTIFIED OF ANY PERTINENT INFO?YES HAS THE PATIENT BEEN EDUCATED REGARDING HIS/HER PLAN OF CARE?YES HAS THE PATIENT BEEN EDUCATED REGARDING PAIN, THE RISK FOR PAIN, THE IMPORTANCE OF EFFECTIVE PAIN MANAGEMENT, AND THE PAIN ASSESSMENT PROCESS?YES ADVANCE DIRECTIVE ADVANCE DIRECTIVE DISCUSSED WITH PATIENT:YES PT HAS NO ADVANCED DIRECTIVE AND DOES NOT WANT INFORMATION AT THIS TIME - DECLINES ASSISTANCE WITH PAPERWORK. REVIEW OF SYSTEMS CONSTITUTIONAL: ANY RECENT FEVER NO . CHILLS NO . WEIGHT CHANGE OF UNKNOWN REASONS NO . GASTROENTEROLOGY: NEW UNEXPLAINABLE CHANGES IN BOWEL CONTROL NO . CONSTIPATION NO . GENITOURINARY: ANY NEW CHANGE IN BLADDER CONTROL? NO . NEUROLOGY: NEW ONSET DIZZINESS OR NEUROLOGICAL CHANGES NOT MENTIONED NO . NEW NUMBNESS OR PAIN PATTERNS NOT MENTIONED AND PERTINENT TO TODAY'S VISIT NO . CARDIOLOGY: NEW CHEST PRESSURE NO . NEW CHEST PAIN NO . RESPIRATORY: UNEXPLAINABLE COUGH NO . NEW SHORTNESS OF BREATH NO . VITAL SIGNS WT 253.6 LBS, HT 63 IN, BMI 44.92 INDEX, REPEAT BP 145/67 MM HG, HR 78 /MIN, RR 18 /MIN, TEMP 99.2 F, OXYGEN SAT % 95%, SAFE IN ENV? (Y/N) YES, REVIEWED BY: JOHNNIE HOUSTON MA. EXAMINATION GENERAL EXAMINATION: GENERALNO ACUTE DISTRESS, WELL NOURISHED AND HYDRATED. PSYCHAPPROPRIATE MOOD AND AFFECT . LUNGS:CLEAR TO AUSCULTATION BILATERALLY, NO WHEEZES, RHONCHI, RALES. HEART:NO MURMURS, REGULAR RATE AND RHYTHM. ASSESSMENTS PAIN IN RIGHT SHOULDER - M25.511 (PRIMARY), RISK: (NULL) PAIN IN LEFT SHOULDER - M25.512, RISK: (NULL) PAIN IN RIGHT ELBOW - M25.521, RISK: (NULL) PAIN IN LEFT ELBOW - M25.522, RISK: (NULL) TREATMENT PAIN IN RIGHT SHOULDER CLINICAL NOTES: 49-YEAR-OLD FEMALE IN FOR CHRONIC PAIN FOLLOW-UP. GIVEN PRESENTING SYMPTOMS RECOMMENDED CONTINUATION OF CURRENT MEDICATION REGIMEN WITH FOLLOW-UP IN 3 MONTHS. PATIENT HAS EXPRESSED UNDERSTANDING OF AND WAS IN AGREEMENT WITH TREATMENT PLAN. GIVEN TIME TO ASK QUESTIONS AND EXPRESS CONCERNS. , ISTOP REGISTRY REVIEWED AND DEMONSTRATES COMPLLIANCE. (REF # [id number] ) BRINGS IN MEDICATIONS WHICH IS APPROPRIATE FOR WHAT WAS DISPENSED. RECENT URINE TOXICOLOGY REVIEWED. NO UNAUTHORIZED MEDICATIONS. NO ILLICIT SUBSTANCES AND PRESCRIBED MEDICATIONS WERE PRESENT. OTHERS CLINICAL NOTES: 04/30/20 PATIENT SCORED MODERATE ON PHQ9. PROVIDER NOTIFIED. EVE HOUSTON MA INFORMATION GIVEN TO PATIENT REGARDING BEHAVIORAL HEALTH WALK-IN HOURS. PROCEDURE CODES FA211 ESTABILISHED PATIENT [facility] CHARGE DISPOSITION & COMMUNICATION FOLLOW UP 3 MONTHS (REASON: SHOULDER AND ELBOW PAIN) ELECTRONICALLY SIGNED BY ROXANNA MIRANDA ON 04/30/2020 AT 10:54 AM EST DISCLAIMER : THIS IS A VISIT SUMMARY EXTRACTED FROM THE [employer] CHART. IT IS NOT A COPY OF THE [employer] PROGRESS NOTE. REILLY
== END ==
LOC: M PAIN 09:00
PROVIDERS: ATTEND Family Medicine
DX: M25.511 Pain in right shoulder (principal); M25.512 Pain in left shoulder; M25.521 Pain in right elbow; M25.522 Pain in left elbow; I10 Essential (primary) hypertension; F41.9 Anxiety disorder, unspecified; F32.9 Major depressive disorder, single episode, unspecified; K58.9 Irritable bowel syndrome, unspecified; E03.9 Hypothyroidism, unspecified; N32.81 Overactive bladder; Z87.891 Personal history of nicotine dependence; Z79.899 Other long term (current) drug therapy

== ENCOUNTER → 2020-08-07 | Outpatient (CLI) | payer OTHER ==
[~2020-08-07] MED LIST changes: +LISI10TA22 PO; -LISI10TA4 PO; +METH-1164; -METH1TAB40
--- NOTE | 2020-08-11 02:41 | ECWPNPC ---
PATIENT NAME: TAHMINA FORBES : 1970 GENDER: FEMALE VISIT DATE: 08/07/2020 DISCHARGE DATE: 08/07/20 1028 VISIT LOCKED DATE TIME: PHYSICIAN: CARRIE PAGE RESOURCE: CARRIE PAGE REASON FOR APPOINTMENT 1. SHOULDER AND ELBOW PAIN HISTORY OF PRESENT ILLNESS FALL RISK SCREENIN-YEAR-OLD FEMALE IN FOR CHRONIC PAIN FOLLOW-UP. SHE RATES HER PAIN CURRENTLY AT A5 OUT OF 10 AND DESCRIBES IT ACHING AND CONTINUOUS. SHE FEELS MEDICATIONS ARE HELPFUL AND DENIES MED SIDE EFFECTS AT THIS TIME. DOI 11/04/2009. SCREENING : NO FALLS REPORTED IN THE LAST YEAR. PAIN SCREENING: PATIENT HAS A COMPLAINT OF ACUTE OR CHRONIC PAIN :YES LOCATION OF PAIN:LEFT SHOULDER, RIGHT SHOULDER, OTHER: ELBOWS INTENSITY OF PAIN (SCALE OF 1 TO 10):5 WHAT DOES YOUR PAIN FEEL LIKE:ACHING, CONTINOUS DURATION:CONTINOUS, CONSTANT, ALL DAY PAIN IS INCREASED BY:ACTIVITIES, OTHERS LAUNDRY, OPERATING ROOM SURGICAL TECHNICIAN PAIN IS DECREASED BY:OTHERS MUSCLE RELAXERS NURSING NOTE: -. PAIN CENTER INTAKE QUESTIONS: DO YOU HAVE A HISTORY OF MRSA? :NO DO YOU TAKE A BLOOD THINNERS? :NO DO YOU HAVE ANY BLEEDING DISORDERS? :NO ANY NEW NUMBNESS OR WEAKNESS IN YOUR LEGS OR ARMS? :NO ANY PACEMAKER,DEFIBRILLATOR, OR DORSAL COLUMN STIMULATOR? :NO DO YOU HAVE ANY RASHES OR OPEN SORES? :NO ARE YOU ALLERGIC TO IV DYE? :NO ARE YOU DIABETIC? :NO ANY NEW PROBLEMS WITH YOUR MEDICATIONS? :NO HAVE YOU RECEIVED A VACCINE IN THE PAST 30 DAYS? :YES IF SO WHAT VACCINE AND WHEN? 2ND COVID VACCINE 07/28/20 DO YOU PLAN TO RECEIVE A VACCINE IN THE NEXT 21 DAYS? :NO DO YOU NEED ANY PRESCRIPTION? :NO DO YOU TAKE ANY IMMUNOSUPPRESSIVE MEDICATIONS? :NO DO YOU HAVE ANY KIDNEY OR LIVER DISEASE? :NO IS THERE A CHANCE YOU COULD BE ? :NO ARE YOU BREAST FEEDING? :NO GENERAL: HPI 50-YEAR-OLD FEMALE IN FOR WORKER'S COMP. CHRONIC PAIN FOLLOW-UP. SHE RATES HER PAIN CURRENTLY AT A 5 OUT OF 10 AND DESCRIBES IT ACHING AND CONTINUOUS. SHE FEELS HER MEDICATIONS ARE HELPFUL AND DENIES MED SIDE EFFECTS AT THIS TIME. MEDICATION NOTED TO BE EFFICACIOUS EVIDENCED BY DECREASED PAIN AND INCREASED FUNCTIONALITY WITH MEDS.. CURRENT MEDICATIONS TAKING ROBAXIN 500 MG TABLET 2 TABLETS ORALLY QID PRN TAKING TYLENOL 325 MG TABLET 1-2 TABLETS ORALLY EVERY 4-6 HRS TAKING LEVOTHYROXINE SODIUM 137 MCG CAPSULE 1 TABLET ON AN EMPTY STOMACH IN THE MORNING ORALLY ONCE A DAY TAKING ROPINIROLE HCL 1 MG TABLET 1 TAB ORALLY BEFORE BEDTIME TAKING ESTRACE 2 MG TABLET 1 TABLET ORALLY DAILY TAKING BUSPIRONE HCL 15 MG TABLET 1 TABLET ORALLY THREE TIMES DAILY TAKING TRAZODONE HCL 100 MG TABLET 1 TABLET AT BEDTIME ORALLY ONCE A DAY PRN TAKING PRAVASTATIN SODIUM 40 MG TABLET 1 TABLET ORALLY ONCE A DAY TAKING OXYBUTYNIN CHLORIDE ER 10 MG TABLET EXTENDED RELEASE 24 HOUR TAKE 1 TABLET BY MOUTH ONCE DAILY TAKING LISINOPRIL 10 MG TABLET 1 TABLET ORALLY ONCE A DAY TAKING CYMBALTA 60 MG CAPSULE DELAYED RELEASE PARTICLES 1 CAPSULE ORALLY ONCE A DAY TAKING MULTIVITAMIN ADULTS 50+ - TABLET DIRECTED ORALLY DAILY TAKING LYRICA 300 MG CAPSULE 1 CAP ORALLY TWICE DAILY TAKING NUCYNTA ER 150 MG TABLET EXTENDED RELEASE 12 HOUR 1 TABLET ORALLY BEFORE BEDTIME MDD1 TAKING NUCYNTA 75 MG TABLET 1 TABLET ORALLY Q8H PRN MDD2 TAKING TIZANIDINE HCL 4 MG TABLET 1 TABLET NEEDED ORALLY THREE TIMES A DAY NOT-TAKING FLUOXETINE HCL 40 MG CAPSULE 1 CAPSULE IN THE MORNING ORALLY BID NOT-TAKING LISINOPRIL-HYDROCHLOROTHIAZIDE 10-12.5 MG TABLET 1 TABLET ORALLY DAILY MEDICATION LIST REVIEWED AND RECONCILED WITH THE PATIENT PAST MEDICAL HISTORY HYPERTENTION ANXIETY DEPRESSION BILAT. SHOULDER AND ELBOW PAIN HIP AND BACK PAIN IBS HYPOTHYROIDISM LOW BACK INJURY OVERACTIVE BLADDER ALLERGIES N.K.D.A. FAMILY HISTORY FATHER: ALIVE 67 YRS, DIAGNOSED WITH UNSPECIFIED HEART DISEASE MOTHER: 64 YRS, SMOKER,ALS, EMPHYSEMA,LUNG CANCER 2 SISTER(S) - HEALTHY. 1DAUGHTER(S) - HEALTHY. MOM- ALS, EMPHYSEMA, LUNG CA. SOCIAL HISTORY GENERAL: TOBACCO USE ARE YOU A:FORMER SMOKER FORMER SMOKER.QUIT 9 YEARS AGO HOW LONG HAS IT BEEN SINCE YOU LAST SMOKED?> 10 YEARS LATEX QUESTIONNAIRE LATEX ALLERGY : HAVE YOU EVER DEVELOPED ANY TYPE OF REACTION AFTER HANDLING LATEX PRODUCTS SUCH RUBBER GLOVES, CONDOMS, DIAPHRAGMS, BALLOONS, SOCKS, OR UNDERWEAR?NO LATEX ALLERGY : HAVE YOU EVER DEVELOPED ANY TYPE OF REACTION DURING OR AFTER DENTAL APPOINTMENT, VAGINAL/RECTAL EXAMINATION, SURGICAL PROCEDURE, OR ANY OTHER EXPOSURE?NO LATEX RISK : HAVE YOU EVER HAD ANY DIFFICULTY BREATHING OR HIVES AFTER EATING OR HANDLING ANY FRUITS, OR VEGETABLES; SUCH KIWI, BANANAS, STONE FRUITS, OR CHESTNUTSNO LATEX RISK : DO YOU HAVE A PREVIOUS PERSONAL HISTORY OF MORE THAN NINE SURGERIES, SPINA BIFIDA, OR REPEATED CATHERIZATIONS? NO LATEX RISK : ARE YOU FREQUENTLY EXPOSED TO LATEX PRODUCTS IN YOUR OCCUPATION?NO DATE ASKED : 08/07/2020 ALCOHOL USE: NO. ALCOHOL SCREENING DID YOU HAVE A DRINK CONTAINING ALCOHOL IN THE PAST YEAR?NO POINTS0 INTERPRETATIONNEGATIVE RECREATIONAL DRUG USE DRUG USE?NO CAFFEINE CAFFEINE USE?YES 2-3 SODAS DAILY SEXUAL HX HAD SEX IN THE LAST 12 MONTHS (VAGINAL, ORAL, OR ANAL)?NO LMP:N/A HAVE YOU EVER HAD AN STD?NO HIV / HEP-C SCREENING HIV TEST OFFERED TO PATIENT:YES DATE OFFERED:05/10/2017 TEST ACCEPTED:NO REASON:PATIENT DECLINED MANDAEISM [id number] BUDDHISM LANGUAGE LANGUAGES SPOKEN:FRENCH LEARNING BARRIERS / SPECIAL NEEDS CHANGE FROM LAST VISIT?YES BARRIERS TO LEARNING?NO HEARING IMPAIRED?NO VISION IMPAIRED?NO COGNITIVELY IMPAIRED?NO READINESS TO LEARN?YES LEARNING PREFERENCES?NO LEARNING CAPABILITIES PRESENT?YES EMOTIONAL BARRIERS?NO 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 DIET: REGULAR. EXERCISE: NO REGULAR EXERCISE. MARITAL STATUS: . OTHERS AT HOME: SPOUSE, CHILD, OTHER NON-RELATIVE,GRANDKIDS. TODAY'S VISITNOTES 08/02/2019 PATIENT DESCRIBES PAIN :ACHING, HAVE IT ALL THE TIME, SHARP, SHOOTING FROM 0-10, WHAT LEVEL IS YOUR PAIN TODAY?5 SHOULDERS - 5 ; LOW BACK & LEG - 7 PRECIPITATING FACTORS HOUSEWORK, YARDWORK ALLEVIATING FACTORS SOMETIMES MEDICATION HELPS - MUSCLE RELAXER IMPACT ON FUNCTION UNABLE TO PERFORM YARDWORK OR HOUSEWORK. - PFS REFERRAL NEEDED?NO CLERGY REFERRAL NEEDED?NO PUBLIC HEALTH REFERRAL NEEDED?NO WAS THE PROVIDER NOTIFIED OF ANY PERTINENT INFO?YES HAS THE PATIENT BEEN EDUCATED REGARDING HIS/HER PLAN OF CARE?YES HAS THE PATIENT BEEN EDUCATED REGARDING PAIN, THE RISK FOR PAIN, THE IMPORTANCE OF EFFECTIVE PAIN MANAGEMENT, AND THE PAIN ASSESSMENT PROCESS?YES ADVANCE DIRECTIVE ADVANCE DIRECTIVE DISCUSSED WITH PATIENT:YES PT HAS NO ADVANCED DIRECTIVE AND DOES NOT WANT INFORMATION AT THIS TIME - DECLINES ASSISTANCE WITH PAPERWORK. REVIEW OF SYSTEMS CONSTITUTIONAL: ANY RECENT FEVER NO . CHILLS NO . WEIGHT CHANGE OF UNKNOWN REASONS NO . GASTROENTEROLOGY: NEW UNEXPLAINABLE CHANGES IN BOWEL CONTROL NO . CONSTIPATION NO . GENITOURINARY: ANY NEW CHANGE IN BLADDER CONTROL? NO . NEUROLOGY: NEW ONSET DIZZINESS OR NEUROLOGICAL CHANGES NOT MENTIONED NO . NEW NUMBNESS OR PAIN PATTERNS NOT MENTIONED AND PERTINENT TO TODAY'S VISIT NO . CARDIOLOGY: NEW CHEST PRESSURE NO . PATIENT DENIES NO . RESPIRATORY: UNEXPLAINABLE COUGH NO . NEW SHORTNESS OF BREATH NO . VITAL SIGNS WT 250.6 LBS, HT 63 IN, BMI 44.39 INDEX, BP 131/68 MM HG, HR 71 /MIN, RR 18 /MIN, TEMP 98.6 F, OXYGEN SAT % 94%, SAFE IN ENV? (Y/N) YES, NA INITIALS AR 09:34, REVIEWED BY: Felice JROGE RN. EXAMINATION GENERAL EXAMINATION: GENERALNO ACUTE DISTRESS, WELL NOURISHED AND HYDRATED. PSYCHAPPROPRIATE MOOD AND AFFECT . LUNGS:CLEAR TO AUSCULTATION BILATERALLY, NO WHEEZES, RHONCHI, RALES. HEART:NO MURMURS, REGULAR RATE AND RHYTHM. ASSESSMENTS PAIN IN RIGHT SHOULDER - M25.511 (PRIMARY) PAIN IN LEFT SHOULDER - M25.512 PAIN IN RIGHT ELBOW - M25.521 PAIN IN LEFT ELBOW - M25.522 CHRONIC PRESCRIPTION OPIATE USE - Z79.891 TREATMENT PAIN IN RIGHT SHOULDER NOTES: 50-YEAR-OLD FEMALE IN FOR WORKER'S COMP. CHRONIC PAIN FOLLOW-UP. GIVEN PRESENTING SYMPTOMS RECOMMENDED CONTINUATION OF CURRENT MEDICATION REGIMEN WITH FOLLOW-UP IN 3 MONTHS. PATIENT HAS EXPRESSED UNDERSTANDING OF AND WAS IN AGREEMENT WITH TREATMENT PLAN. GIVEN TIME TO ASK QUESTIONS AND EXPRESS CONCERNS. ISTOP REGISTRY REVIEWED AND DEMONSTRATES COMPLLIANCE. (REF # [id number] ) BRINGS IN MEDICATIONS WHICH IS APPROPRIATE FOR WHAT WAS DISPENSED. RECENT URINE TOXICOLOGY REVIEWED. NO UNAUTHORIZED MEDICATIONS. NO ILLICIT SUBSTANCES AND PRESCRIBED MEDICATIONS WERE PRESENT. CHRONIC PRESCRIPTION OPIATE USE LAB: URINE TEST GROUP [facility] 08/07/2020 10:26:44 AM > ROBAXIN 08/07/2020, LYRICA- 08/07/2020, NUCYENTA 08/07/2020 PROCEDURES PN WORKMANS' COMP OPINION IN YOUR OPINION, WAS THE INCIDENT THAT THE PATIENT DESCRIBED THE COMPETENT MEDICAL CAUSE OF THIS INJURY/ILLNESS? YES ARE THE PATIENT'S COMPLAINTS CONSISTENT WITH HIS/HER HISTORY OF THE INJURY/ILLNESS? YES IS THE PATIENT'S HISTORY OF THE INJURY/ILLNESS CONSISTENT WITH YOUR OBJECTIVE FINDING? YES WHAT IS THE PERCENTAGE OF TEMPORARY IMPAIRMENT? MODERATE TO MARKED = 66.7% IS THE PATIENT WORKING? YES DOCTOR ON SITE: JERRY BRICE MD PROCEDURE CODES FA211 ESTABILISHED PATIENT [facility] FACILITY CHARGE DISPOSITION & COMMUNICATION FOLLOW UP 3 MONTHS (REASON: W/C) ELECTRONICALLY SIGNED BY ROXANNA MIRANDA ON 08/10/2020 AT 12:15 PM EDT DISCLAIMER : THIS IS A VISIT SUMMARY EXTRACTED FROM THE [employer] CHART. IT IS NOT A COPY OF THE [employer] PROGRESS NOTE. REILLY
== END ==
LOC: M PAIN 09:15
PROVIDERS: ATTEND Family Medicine
DX: M25.511 Pain in right shoulder (principal); M25.512 Pain in left shoulder; M25.521 Pain in right elbow; M25.522 Pain in left elbow; G89.29 Other chronic pain; E03.9 Hypothyroidism, unspecified; Z86.59 Personal history of other mental and behavioral disorders; Z87.891 Personal history of nicotine dependence; E66.01 Morbid (severe) obesity due to excess calories; Z68.41 Body mass index [BMI] 40.0-44.9, adult; Z79.891 Long term (current) use of opiate analgesic; Z79.899 Other long term (current) drug therapy

== ENCOUNTER → 2020-11-06 | Outpatient (CLI) | payer OTHER ==
--- NOTE | 2020-11-07 04:09 | ECWPNPC ---
PATIENT NAME: TAHMINA FORBES : 1970 GENDER: FEMALE VISIT DATE: 11/06/2020 DISCHARGE DATE: 11/06/20921 VISIT LOCKED DATE TIME: PHYSICIAN: CARRIE PAGE RESOURCE: CARRIE PAGE REASON FOR APPOINTMENT 1. 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 CHRONIC PAIN FOLLOW-UP. PATIENT FEELS HER MEDICATIONS ARE HELPFUL AND DENIES MED SIDE EFFECTS AT THIS TIME. SHE RATES HER PAIN CURRENTLY AT A 4-10 AND DESCRIBES IT ACHING AND CONTINUOUS. SHE FEELS HER MEDICATIONS ARE HELPFUL AND DENIES MED SIDE EFFECTS AT THIS TIME. DOI 11/04/2009. -. FALL RISK SCREENING: SCREENING : NO FALLS REPORTED IN THE LAST YEAR. PAIN SCREENING: PATIENT HAS A COMPLAINT OF ACUTE OR CHRONIC PAIN :YES LOCATION OF PAIN:BOTH SHOULDERS INTENSITY OF PAIN (SCALE OF 1 TO 10):4 WHAT DOES YOUR PAIN FEEL LIKE:ACHING, CONTINOUS DURATION:CONTINOUS, CONSTANT, STEADY, ALL DAY PAIN IS INCREASED BY:ACTIVITIES PAIN IS DECREASED BY:USE OF PAIN MEDICATIONS REST, TENS UNIT NURSING NOTE: -. PAIN CENTER INTAKE QUESTIONS: DO YOU HAVE A HISTORY OF MRSA? :NO DO YOU TAKE A BLOOD THINNERS? :NO DO YOU HAVE ANY BLEEDING DISORDERS? :NO ANY NEW NUMBNESS OR WEAKNESS IN YOUR LEGS OR ARMS? :NO ANY PACEMAKER,DEFIBRILLATOR, OR DORSAL COLUMN STIMULATOR? :NO DO YOU HAVE ANY RASHES OR OPEN SORES? :NO ARE YOU ALLERGIC TO IV DYE? :NO ARE YOU DIABETIC? :NO ANY NEW PROBLEMS WITH YOUR MEDICATIONS? :NO HAVE YOU RECEIVED A VACCINE IN THE PAST 30 DAYS? :NO DO YOU PLAN TO RECEIVE A VACCINE IN THE NEXT 21 DAYS? :NO DO YOU NEED ANY PRESCRIPTION? :YES NUCYNTA DO YOU TAKE ANY IMMUNOSUPPRESSIVE MEDICATIONS? :NO DO YOU HAVE ANY KIDNEY OR LIVER DISEASE? :NO IS THERE A CHANCE YOU COULD BE ? :NO ARE YOU BREAST FEEDING? :NO CURRENT MEDICATIONS TAKING ROBAXIN 500 MG TABLET 2 TABLETS ORALLY QID PRN TAKING TYLENOL 325 MG TABLET 1-2 TABLETS ORALLY EVERY 4-6 HRS TAKING LEVOTHYROXINE SODIUM 137 MCG CAPSULE 1 TABLET ON AN EMPTY STOMACH IN THE MORNING ORALLY ONCE A DAY TAKING ROPINIROLE HCL 1 MG TABLET 1 TAB ORALLY BEFORE BEDTIME TAKING ESTRACE 2 MG TABLET 1 TABLET ORALLY DAILY TAKING BUSPIRONE HCL 15 MG TABLET 1 TABLET ORALLY THREE TIMES DAILY TAKING TRAZODONE HCL 100 MG TABLET 1 TABLET AT BEDTIME ORALLY ONCE A DAY PRN TAKING PRAVASTATIN SODIUM 40 MG TABLET 1 TABLET ORALLY ONCE A DAY TAKING OXYBUTYNIN CHLORIDE ER 10 MG TABLET EXTENDED RELEASE 24 HOUR TAKE 1 TABLET BY MOUTH ONCE DAILY TAKING LISINOPRIL 10 MG TABLET 1 TABLET ORALLY ONCE A DAY TAKING CYMBALTA 60 MG CAPSULE DELAYED RELEASE PARTICLES 1 CAPSULE ORALLY ONCE A DAY TAKING MULTIVITAMIN ADULTS 50+ - TABLET DIRECTED ORALLY DAILY TAKING NUCYNTA ER 150 MG TABLET EXTENDED RELEASE 12 HOUR 1 TABLET ORALLY BEFORE BEDTIME MDD1 TAKING LYRICA 300 MG CAPSULE 1 CAP ORALLY TWICE DAILY TAKING NUCYNTA 75 MG TABLET 1 TABLET ORALLY Q8H PRN MDD2 TAKING TIZANIDINE HCL 4 MG TABLET 1 TABLET NEEDED ORALLY THREE TIMES A DAY NOT-TAKING FLUOXETINE HCL 40 MG CAPSULE 1 CAPSULE IN THE MORNING ORALLY BID NOT-TAKING LISINOPRIL-HYDROCHLOROTHIAZIDE 10-12.5 MG TABLET 1 TABLET ORALLY DAILY MEDICATION LIST REVIEWED AND RECONCILED WITH THE PATIENT PAST MEDICAL HISTORY HYPERTENTION ANXIETY DEPRESSION BILAT. SHOULDER AND ELBOW PAIN HIP AND BACK PAIN IBS HYPOTHYROIDISM LOW BACK INJURY OVERACTIVE BLADDER ALLERGIES N.K.D.A. SOCIAL HISTORY GENERAL: TOBACCO USE ARE YOU A:FORMER SMOKER FORMER SMOKER.QUIT 9 YEARS AGO HOW LONG HAS IT BEEN SINCE YOU LAST SMOKED?> 10 YEARS LATEX QUESTIONNAIRE LATEX ALLERGY : HAVE YOU EVER DEVELOPED ANY TYPE OF REACTION AFTER HANDLING LATEX PRODUCTS SUCH RUBBER GLOVES, CONDOMS, DIAPHRAGMS, BALLOONS, SOCKS, OR UNDERWEAR?NO LATEX ALLERGY : HAVE YOU EVER DEVELOPED ANY TYPE OF REACTION DURING OR AFTER DENTAL APPOINTMENT, VAGINAL/RECTAL EXAMINATION, SURGICAL PROCEDURE, OR ANY OTHER EXPOSURE?NO LATEX RISK : HAVE YOU EVER HAD ANY DIFFICULTY BREATHING OR HIVES AFTER EATING OR HANDLING ANY FRUITS, OR VEGETABLES; SUCH KIWI, BANANAS, STONE FRUITS, OR CHESTNUTSNO LATEX RISK : DO YOU HAVE A PREVIOUS PERSONAL HISTORY OF MORE THAN NINE SURGERIES, SPINA BIFIDA, OR REPEATED CATHERIZATIONS? NO LATEX RISK : ARE YOU FREQUENTLY EXPOSED TO LATEX PRODUCTS IN YOUR OCCUPATION?NO DATE ASKED : 08/07/2020 ALCOHOL USE: NO. ALCOHOL SCREENING DID YOU HAVE A DRINK CONTAINING ALCOHOL IN THE PAST YEAR?NO POINTS0 INTERPRETATIONNEGATIVE RECREATIONAL DRUG USE DRUG USE?NO CAFFEINE CAFFEINE USE?YES 2-3 SODAS DAILY SEXUAL HX HAD SEX IN THE LAST 12 MONTHS (VAGINAL, ORAL, OR ANAL)?NO HAVE YOU EVER HAD AN STD?NO LMP:N/A HIV / HEP-C SCREENING HIV TEST OFFERED TO PATIENT:YES DATE OFFERED:05/10/2017 TEST ACCEPTED:NO REASON:PATIENT DECLINED ZOROASTRIANISM [id number] ALEVISM LANGUAGE LANGUAGES SPOKEN:UPPER SORBIAN LEARNING BARRIERS / SPECIAL NEEDS CHANGE FROM LAST VISIT?NO BARRIERS TO LEARNING?NO HEARING IMPAIRED?NO VISION IMPAIRED?NO COGNITIVELY IMPAIRED?NO READINESS TO LEARN?YES LEARNING PREFERENCES?NO LEARNING CAPABILITIES PRESENT?YES EMOTIONAL BARRIERS?NO 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 DIET: REGULAR. EXERCISE: NO REGULAR EXERCISE. MARITAL STATUS: . OTHERS AT HOME: SPOUSE, CHILD, OTHER NON-RELATIVE,GRANDKIDS. TODAY'S VISITNOTES 08/02/2019 PATIENT DESCRIBES PAIN :ACHING, HAVE IT ALL THE TIME, SHARP, SHOOTING FROM 0-10, WHAT LEVEL IS YOUR PAIN TODAY?5 SHOULDERS - 5 ; LOW BACK & LEG - 7 PRECIPITATING FACTORS HOUSEWORK, YARDWORK ALLEVIATING FACTORS SOMETIMES MEDICATION HELPS - MUSCLE RELAXER IMPACT ON FUNCTION UNABLE TO PERFORM YARDWORK OR HOUSEWORK. - PFS REFERRAL NEEDED?NO CLERGY REFERRAL NEEDED?NO PUBLIC HEALTH REFERRAL NEEDED?NO WAS THE PROVIDER NOTIFIED OF ANY PERTINENT INFO?YES HAS THE PATIENT BEEN EDUCATED REGARDING HIS/HER PLAN OF CARE?YES HAS THE PATIENT BEEN EDUCATED REGARDING PAIN, THE RISK FOR PAIN, THE IMPORTANCE OF EFFECTIVE PAIN MANAGEMENT, AND THE PAIN ASSESSMENT PROCESS?YES ADVANCE DIRECTIVE ADVANCE DIRECTIVE DISCUSSED WITH PATIENT:YES PT HAS NO ADVANCED DIRECTIVE AND DOES NOT WANT INFORMATION AT THIS TIME - DECLINES ASSISTANCE WITH PAPERWORK. REVIEW OF SYSTEMS CONSTITUTIONAL: ANY RECENT FEVER NO . CHILLS NO . WEIGHT CHANGE OF UNKNOWN REASONS NO . GASTROENTEROLOGY: NEW UNEXPLAINABLE CHANGES IN BOWEL CONTROL NO . CONSTIPATION NO . GENITOURINARY: ANY NEW CHANGE IN BLADDER CONTROL? NO . NEUROLOGY: NEW ONSET DIZZINESS OR NEUROLOGICAL CHANGES NOT MENTIONED NO . NEW NUMBNESS OR PAIN PATTERNS NOT MENTIONED AND PERTINENT TO TODAY'S VISIT NO . CARDIOLOGY: NEW CHEST PRESSURE NO . PATIENT DENIES NO . RESPIRATORY: UNEXPLAINABLE COUGH NO . NEW SHORTNESS OF BREATH NO . VITAL SIGNS WT 242.4 LBS, WT-KG 109.95 KG, HT 63 IN, BMI 42.93 INDEX, BP 125/68 MM HG, HR 69 /MIN, RR 18 /MIN, TEMP 97.1 F, OXYGEN SAT % 95%, SAFE IN ENV? (Y/N) YES, NA INITIALS AW 0912, REVIEWED BY: APA. RANDY RN. EXAMINATION GENERAL EXAMINATION: GENERALNO ACUTE DISTRESS, WELL NOURISHED AND HYDRATED. PSYCHAPPROPRIATE MOOD AND AFFECT . LUNGS:CLEAR TO AUSCULTATION BILATERALLY, NO WHEEZES, RHONCHI, RALES. HEART:NO MURMURS, REGULAR RATE AND RHYTHM. 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 CHRONIC PAIN FOLLOW-UP. GIVEN PRESENTING SYMPTOMS RECOMMEND CONTINUATION OF CURRENT MEDICATION REGIMEN WITH FOLLOW-UP IN 3 MONTHS. PATIENT HAS EXPRESSED UNDERSTANDING OF AND WAS IN AGREEMENT WITH TREATMENT PLAN. GIVEN TIME TO ASK QUESTIONS AND EXPRESS CONCERNS. ISTOP REGISTRY REVIEWED AND DEMONSTRATES COMPLLIANCE. (REF #[id number] ) BRINGS IN MEDICATIONS WHICH IS APPROPRIATE FOR WHAT WAS DISPENSED. RECENT URINE TOXICOLOGY REVIEWED. NO UNAUTHORIZED MEDICATIONS. NO ILLICIT SUBSTANCES AND PRESCRIBED MEDICATIONS WERE PRESENT. PROCEDURES PN WORKMANS' COMP OPINION IN YOUR OPINION, WAS THE INCIDENT THAT THE PATIENT DESCRIBED THE COMPETENT MEDICAL CAUSE OF THIS INJURY/ILLNESS? YES ARE THE PATIENT'S COMPLAINTS CONSISTENT WITH HIS/HER HISTORY OF THE INJURY/ILLNESS? YES IS THE PATIENT'S HISTORY OF THE INJURY/ILLNESS CONSISTENT WITH YOUR OBJECTIVE FINDING? YES WHAT IS THE PERCENTAGE OF TEMPORARY IMPAIRMENT? MODERATE TO MARKED = 66.7% IS THE PATIENT WORKING? YES DOCTOR ON SITE: JERRY BRICE MD VISIT CODES 68633 OFFICE VISIT, EST PT., LEVEL 3. PROCEDURE CODES FA211 ESTABILISHED PATIENT [facility] CHARGE DISPOSITION & COMMUNICATION FOLLOW UP 3 MONTHS (REASON: SHOULDER PAIN) ELECTRONICALLY SIGNED BY ROXANNA MIRANDA ON 11/06/2020 AT 09:25 AM EDT DISCLAIMER : THIS IS A VISIT SUMMARY EXTRACTED FROM THE [employer] CHART. IT IS NOT A COPY OF THE [employer] PROGRESS NOTE. REILLY
== END ==
LOC: M PAIN 09:00
PROVIDERS: ATTEND Family Medicine
DX: M25.511 Pain in right shoulder (principal); G89.29 Other chronic pain; E03.9 Hypothyroidism, unspecified; Z86.59 Personal history of other mental and behavioral disorders; Z87.891 Personal history of nicotine dependence; E66.01 Morbid (severe) obesity due to excess calories; Z68.41 Body mass index [BMI] 40.0-44.9, adult; Z79.891 Long term (current) use of opiate analgesic; Z79.899 Other long term (current) drug therapy

== ENCOUNTER → 2021-01-25 | Outpatient (CLI) | payer OTHER ==
[~2021-01-25] MED LIST changes: -ESTR2TAB2 PO; +ESTR2TAB3 PO
--- NOTE | 2021-01-25 18:08 | REP ---
INDICATION: SPINAL STENOSIS. COMPARISON: 12/16/2019, 07/15/2019. TECHNIQUE: Multiple sequences obtained in the sagittal and axial planes. FINDINGS: Vertebral bodies are normal in height and well aligned with normal lumbar lordosis. No abnormal bone marrow signal is seen. There is mild diffuse loss of water signal and disc degeneration. Disc space heights are relatively well maintained. The conus is unremarkable. At L1-2, L2-3 and L3-4 there is mild diffuse disc bulging and facet arthropathy. There is minimal compression of the thecal sac at these levels and minimal bilateral foraminal narrowing. At L4-5 there is moderate diffuse disc bulging. There is moderate hypertrophic change of the posterior facets and ligamentum flavum. There is mild spinal canal stenosis. There is mild to moderate bilateral foraminal narrowing. At L5-S1 there is mild diffuse disc bulging. There are moderately severe hypertrophic changes at the posterior facet joints. There is no spinal stenosis. There is very mild left foraminal narrowing. IMPRESSION: Multilevel degenerative disc change and disc bulging as discussed in detail above, as well as posterior facet arthropathy. These findings are most significant at L4-5 level. <Electronically signed by Colin Pedro > 01/25/21 [id number]
== END ==
LOC: M PLAIMG 09:30
PROVIDERS: ATTEND Physician Assistant
DX: M48.061 Spinal stenosis, lumbar region without neurogenic claudication (principal); M51.36 Other intervertebral disc degeneration, lumbar region

== ENCOUNTER → 2021-03-15 | Outpatient (CLI) | payer OTHER ==
[~2021-03-15] MED LIST changes: -ACET1TAB55; +ACET1TAB55 PO; +ERGO500029 PO
== END ==
LOC: M LABSMTC 09:31
PROVIDERS: ATTEND Anesthesiology
DX: Z01.812 Encounter for preprocedural laboratory examination (principal); Z20.822 Contact with and (suspected) exposure to COVID-19

== ENCOUNTER 2021-03-19 07:43 | Day surgery (SDC) | payer OTHER, MEDICARE ==
[~2021-03-19] VITALS: Ht 160 cm; Wt 105.1 kg
[~2021-03-19 07:43] MED LIST changes: +BSS IRR 500ML/OMIDRIA 4ML IRR BAG (OR ONLY) As Ordered ONE; +CEFUROXIME 1MG/0.1ML INTRACAMERAL INJ As Ordered ONE; +LIDOCAINE 1% SDV 5ML VIAL As Ordered ONE; -LISI10TA15 PO; +LISI10TA24 PO; +OFLOXACIN 0.3 % (OCUFLOX) OPTH SOL 5ML OD SCH; +PHENYLEPHRINE 2.5% OPHTH SOL 2ML OD SCH; +PROPARACAINE 0.5% OPHTH SOL 15ML OD ONE; +TIZA10TA PO; -TIZA4TAB4 PO; +TROPICAMIDE 1% OPHTH SOLN 2ML OD SCH
[2021-03-19] MEDS ORDERED: fentaNYL 100 MCG/2 ML INJECTION As Ordered ONE (07:57)
[2021-03-19] MEDS ORDERED: MIDAZOLAM INJ 2MG/2ML VIAL (J2250 PER 1MG) As Ordered ONE (07:57)
[2021-03-19 10:45] VITALS: BP 130/68
== END 2021-03-19 11:25 | disposition home or self-care (01) ==
LOC: M SDC 07:43
PROVIDERS: ATTEND Ophthalmology
DX: H25.11 Age-related nuclear cataract, right eye (principal); I10 Essential (primary) hypertension; E78.5 Hyperlipidemia, unspecified; E03.9 Hypothyroidism, unspecified; K57.92 Diverticulitis of intestine, part unspecified, without perforation or abscess without bleeding; F41.9 Anxiety disorder, unspecified; F32.9 Major depressive disorder, single episode, unspecified; Z79.899 Other long term (current) drug therapy
CPT/HCPCS: 66984; J1097; J2250; J3010

== ENCOUNTER 2021-03-29 22:36 | Observation (INO) | payer OTHER, MEDICARE ==
[~2021-03-29] VITALS: Ht 160 cm; Wt 103.5 kg
[~2021-03-29 22:36] MED LIST changes: -BSS IRR 500ML/OMIDRIA 4ML IRR BAG (OR ONLY) As Ordered ONE; -CEFUROXIME 1MG/0.1ML INTRACAMERAL INJ As Ordered ONE; -LIDOCAINE 1% SDV 5ML VIAL As Ordered ONE; +LISI10TA15 PO; -LISI10TA24 PO; -OFLOXACIN 0.3 % (OCUFLOX) OPTH SOL 5ML OD SCH; -PHENYLEPHRINE 2.5% OPHTH SOL 2ML OD SCH; -PROPARACAINE 0.5% OPHTH SOL 15ML OD ONE; -TIZA10TA PO; +TIZA4TAB4 PO; -TROPICAMIDE 1% OPHTH SOLN 2ML OD SCH
[2021-03-29 23:19] LABS: BASO # 0.1 10^3/uL (0.0-0.2); BASO % 0.6 % (0.0-1.0); EOS # 0.2 10^3/uL (0.0-0.5); EOS % 1.7 % (0.0-3.0); HEMOGLOBIN 13.8 g/dl (12.0-15.5); LYMPH % 10.4 % (24.0-44.0); MEAN CORPUSCULAR HEMOGLOBIN 31.7 pg (27.0-33.0); MEAN CORPUSCULAR HGB CONC 33.7 g/dl (32.0-36.5); MEAN CORPUSCULAR VOLUME 94.3 fl (80.0-96.0); MONO # 0.6 10^3/uL (0.0-0.8); MONO % 6.7 % (2.0-8.0); NEUTROPHILS # 7.6 10^3/uL (1.5-8.5); NEUTROPHILS % 80.3 % (36.0-66.0); PLATELET COUNT, AUTOMATED 146 10^3/uL (150-450); RED BLOOD COUNT 4.35 10^6/uL (4.00-5.40); WHITE BLOOD COUNT 9.4 10^3/uL (4.0-10.0)
[2021-03-29] MEDS ORDERED: diphenhydrAMINE 50MG/ML VIAL (J1200) IV ONE (23:30)
[2021-03-29] MEDS ORDERED: NS 1,000 ML IV ONE (23:30)
[2021-03-29] MEDS ORDERED: METOCLOPRAMIDE INJ 10MG/2ML VIAL (J2765 PER 1) IV ONE (23:30)
[2021-03-29] MEDS ORDERED: KETOROLAC 30 MG/ML 1ML VIAL IV ONE (23:30)
[2021-03-29 23:42] LABS: BLOOD UREA NITROGEN 8 MG/DL (7-18); CALCIUM LEVEL 8.2 MG/DL (8.5-10.1); CARBON DIOXIDE LEVEL 24 MEQ/L (21-32); CHLORIDE LEVEL 108 MEQ/L (98-107); CREATININE FOR GFR 0.93 MG/DL (0.55-1.30); GLOMERULAR FILTRATION RATE > 60.0 (>51); GLUCOSE, FASTING 130 MG/DL (70-100); POTASSIUM SERUM 4.1 MEQ/L (3.5-5.1); SODIUM LEVEL 139 MEQ/L (136-145)
--- NOTE | 2021-03-30 00:34 | REPVR ---
PROCEDURE INFORMATION: Exam: XR Chest Exam date and time: 03/29/2021 11:14 PM Age: 50 years old Clinical indication: Pain; Other: Unspecified; Additional info: Chest pain TECHNIQUE: Imaging protocol: XR of the chest. Views: 1 view. COMPARISON: CR PORTABLE CHEST X-RAY 10/15/2019 8:09 AM FINDINGS: Lungs: Degree of lung inflation is normal. No evidence of pulmonary edema. No focal consolidation or parenchymal lung mass. Pleural spaces: No pleural effusion or pneumothorax. Heart/Mediastinum: Cardiac silhouette appears normal. No adenopathy or hilar mass. Bones/joints: Osseous structures show no concerning abnormality. Proximal humeral suture anchors consistent with rotator cuff or capsular repair IMPRESSION: No acute or focal cardiopulmonary process. Electronically signed by: Lucian Redding On 03/30/2021 00:30:36 AM
[2021-03-30 00:52] LABS: CK-MB VALUE MASS 1.8 NG/ML (<3.6); MB/CK RELATIVE INDEX 1.14 (< OR =4)
--- NOTE | 2021-03-30 00:56 | ECGEPIP ---
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
[2021-03-30] MEDS ORDERED: PREDOPD OU (01:09)
[2021-03-30] MEDS ORDERED: methylPREDNISolone 125MG 2ML VIAL IV ONE (01:30)
[2021-03-30] MEDS ORDERED: ISOVUE-370 76% 100ML VIAL As Ordered ONE (01:33)
[2021-03-30] MEDS: COMBIVENT RESPIMAT 100-20MCG INHALER 4GM INH SCH ×2 (01:58→02:00)
[2021-03-30 01:59] LABS: ABG BASE EXCESS -0.3 (-2.0-2.0); ABG HCO3 24.9 MEQ/L (22.0-26.0); ABG O2 SATURATION 97.3 % (95.0-99.0); ABG PARTIAL PRESSURE CO2 43.1 mmHg (35.0-45.0); ABG PARTIAL PRESSURE O2 96.2 mmHg (75.0-100.0); ABG STANDARD HCO3 24.2 MEQ/L (22.0-26.0); ABG TOTAL CO2 26.2 MEQ/L (22.0-29.0)
--- NOTE | 2021-03-30 03:08 | REPVR ---
PROCEDURE INFORMATION: Exam: CTA Chest With Contrast Exam date and time: 03/30/2021 1:27 AM Age: 50 years old Clinical indication: Shortness of breath; Additional info: Cough, hypoxia TECHNIQUE: Imaging protocol: Computed tomographic angiography of the chest with contrast. 3D rendering (Not supervised by radiologist): MIP and/or 3D reconstructed images were created by the technologist. Radiation optimization: All CT scans at this facility use at least one of these dose optimization techniques: automated exposure control; mA and/or kV adjustment per patient size (includes targeted exams where dose is matched to clinical indication); or iterative reconstruction. Contrast material: ISO; Contrast volume: 75 ml; Contrast route: INTRAVENOUS (IV); COMPARISON: CT ANGIO CHEST 01/05/2015 7:42 AM FINDINGS: Pulmonary arteries: Suboptimal opacification of distal segmental and subsegmental pulmonary arterial branches. No acute pulmonary embolic disease otherwise.. Aorta: Unremarkable. No aortic aneurysm. No aortic dissection. Lungs: Atelectasis or scarring the lingula and medial right lobe. Dependent and linear atelectasis at the left base. Mild centrilobular emphysema. Pleural spaces: Unremarkable. No pneumothorax. No pleural effusion. Heart: Unremarkable. No cardiomegaly. No pericardial effusion. Lymph nodes: Unremarkable. No enlarged lymph nodes. Liver: Hepatomegaly and steatosis. Spleen: Left upper quadrant splenules. Bones/joints: Multilevel degenerative disease of the thoracic spine. Soft tissues: Unremarkable. IMPRESSION: Suboptimal opacification of distal segmental and subsegmental pulmonary arterial branches. No acute pulmonary embolic disease otherwise. Electronically signed by: Vidal Ball On 03/30/2021 03:07:42 AM
[2021-03-30 03:59] LABS: D-DIMER QUANT 665.68 ng/ml (<500)
[2021-03-30] MEDS ORDERED: LEVALBUTEROL 1.25 MG/0.5 ML CONCENTRATE NEB NEB PRN (04:20)
--- NOTE | 2021-03-30 04:29 | HPEPDOC ---
[facility] Medical History & Physical Date of Admission Mar 30, 2021 Date of Service: Mar 30, 2021 Attending Physician: Ludin Astorga History and Physical CHIEF COMPLAINT: [50 y/o female c/o headache, sob x5 days] HISTORY OF PRESENT ILLNESS: [This is a 50 y/o female with a pmh of hld, htn, hypothyroidism who presents to our ED for evaluation of headache, sob that have progressively worsened for approx 5 days. Patient tells me that she received her covid booster on 03/25, and ever since has felt ill. Patient tells me that her symptoms began with fatigue, malaise, cough and headache. Patient tells me that her symptoms have progressively worsened. Patient complains of persistent cough that is nonproductive in nature that has been causing her some chest tightness. Patient tells me that her headache has been associated with photophobia, however tells me that she has also just had a cataract removal procedure 11 days ago. Patient also complains of shortness of breath. Patient, at the time of my exam, denies any substernal chest pain, abd pain, n/v/d/c, dysuria, pedal edema, hemoptysis, syncope, paresthesias.] PAST MEDICAL HISTORY: 1. [See HPI PAST SURGICAL HISTORY: 1. [Hysterectomy]. 2. [Unspec. hernia repair]. 3. [Unspec b/l orthopedic shoulder repairs 4. B/l carpal tunnel release]. SOCIAL HISTORY: Tobacco use:[Denies] ETOH: [Denies] Illicit drug use: [Denies] FAMILY HISTORY: Reviewed - none pertinent ALLERGIES: Please see below. REVIEW OF SYSTEMS: CONSTITUTIONAL: [See HPI]. HEENT: [See HPI]. CARDIOVASCULAR: [Denies chest pain, palpitations]. RESPIRATORY: [See HPI]. GASTROINTESTINAL: [Denies abd pain, n/v/d/c]. GENITOURINARY: [Denies dysuria]. SKIN: [Denies rash]. MUSCULOSKELETAL: [Denies acute joint/back pain]. NEUROLOGICAL: [Denies syncope, paresthesias]. ENDOCRINE: [Denies hx of DM]. HEMATOLOGIC/LYMPHATIC: [Denies hx of vte]. HOME MEDICATIONS: Please see below. PHYSICAL EXAMINATION: VITAL SIGNS: Please see below. GENERAL APPEARANCE: [This is a 50 y/o female who is seated on ED stretcher. She is alert and oriented to all questioning. She does not appear to be in any acute distress]. HEENT: [No mass or lesion. Nasal canula in place. EOMI. No scleral icterus. Nares patent. Oral mucosa moist]. CARDIOVASCULAR: [Regular rate, rhythm. No murmurs, rubs, gallops]. LUNGS: [Good air flow b/l. Faint scattered expiratory wheezing]. ABDOMEN: [Soft, nontender]. MUSCULOSKELETAL: [No joint deformity noted]. EXTREMITIES: [no pedal edema appreciated. Pulses intact. No overlying skin changes]. NEUROLOGICAL: [Speech clear. A+Ox3. No focal deficits]. PSYCHIATRIC: [Mood and affect appear appropriate]. LABORATORY DATA: See below. IMAGING: [CXR: FINDINGS: Lungs: Degree of lung inflation is normal. No evidence of pulmonary edema. No focal consolidation or parenchymal lung mass. Pleural spaces: No pleural effusion or pneumothorax. Heart/Mediastinum: Cardiac silhouette appears normal. No adenopathy or hilar mass. Bones/joints: Osseous structures show no concerning abnormality. Proximal humeral suture anchors consistent with rotator cuff or capsular repair IMPRESSION: No acute or focal cardiopulmonary process. CTA Chest: FINDINGS: Pulmonary arteries: Suboptimal opacification of distal segmental and subsegmental pulmonary arterial branches. No acute pulmonary embolic disease otherwise.. Aorta: Unremarkable. No aortic aneurysm. No aortic dissection. Lungs: Atelectasis or scarring the lingula and medial right lobe. Dependent and linear atelectasis at the left base. Mild centrilobular emphysema. Pleural spaces: Unremarkable. No pneumothorax. No pleural effusion. Heart: Unremarkable. No cardiomegaly. No pericardial effusion. Lymph nodes: Unremarkable. No enlarged lymph nodes. Liver: Hepatomegaly and steatosis. Spleen: Left upper quadrant splenules. Bones/joints: Multilevel degenerative disease of the thoracic spine. Soft tissues: Unremarkable. IMPRESSION: Suboptimal opacification of distal segmental and subsegmental pulmonary arterial branches. No acute pulmonary embolic disease otherwise.] MICROBIOLOGY: Please see below. ASSESSMENT: [This is a 50 y/o female with a pmh of hld, htn, hypothyroidism who presents to our ED for evaluation of headache, sob that have progressively worsened for approx 5 days. Patient tells me that she received her covid booster on 03/25, and ever since has felt ill. Workup in the ed notable for tachycardia max of 110s, tachypnea in the 20s, hypoxia requiring 2L. Patient respiratory panel notable for non covid coronav irus strain]. . PLAN: 1. [Acute hypoxic respiratory failure - At this point, it seems as though this is secondary to non covid coronavirus. It may be possible patient is mounting blunted immune response d/t recent immunization. However, PE cannot be fully ruled out at this time as CTA was nondiagnostic for PE d/t patient not receiving full dose of contrast d/t error - If patient does have a PE, it is likely small as there is no heart strain on cta and only peripheral vessels were not visualized - Will begin iv dexamethasone for wheezing - Scheduled duonebs, prn xopenex - empiric therapeutic lovenox - Tessalon perles for cough - Continue supplemental o2 titrated to >90 - Will check a bnp - Admit to [facility] for w/u and tx 2. HTN - continue lisinopril 3. HLD - continue pravastatin 4. Hypothyroidism - continue synthroid 5. RLS - continue ropinirole 6. Depression/anxiety - continue trazodone, duloxetine, buspar, nortriptyline 7. Spasms/neuropathy - continue pregabolin, tizanidine 8. Overactive bladder DVT prophylaxis - lovenox]. Vital Signs Vital Signs Date Time Temp Pulse Resp B/P (MAP) Pulse Ox O2 Delivery O2 Flow Rate FiO2 03/30/21 03:36 95 91 03/30/21 03:30 106/55 (72) 03/30/21 01:18 18 03/30/21 00:14 97.9 03/29/21 23:11 Room Air Laboratory Data Labs 24H Laboratory Tests 2 03/29/21 22:50: Anion Gap 7L, Glomerular Filtration Rate > 60.0, Calcium Level 8.2L, Thyroid Stimulating Hormone (TSH) 1.080 03/29/21 22:51: Immature Granulocyte % (Auto) 0.3, Neutrophils (%) (Auto) 80.3H, Lymphocytes (%) (Auto) 10.4L, Monocytes (%) (Auto) 6.7, Eosinophils (%) (Auto) 1.7, Basophils (%) (Auto) 0.6, Neutrophils # (Auto) 7.6, Lymphocytes # (Auto) 1.0L, Monocytes # (Auto) 0.6, Eosinophils # (Auto) 0.2, Basophils # (Auto) 0.1, Nucleated Red Blood Cells % (auto) 0.0 03/29/21 23:45: Total Creatine Kinase 158, Creatine Kinase MB 1.8, Creatine Kinase MB Relative Index 1.14, Troponin I High Sensitivity 6.0 03/30/21 01:55: Blood Gas Bicarbonate Standard 24.2, Arterial Blood pH 7.380, Arterial Blood Partial Pressure CO2 43.1, Arterial Blood Partial Pressure O2 96.2, Arterial Blood Total CO2 26.2, Arterial Blood HCO3 24.9, Arterial Blood Base Excess -0.3, Arterial Blood Oxygen Saturation 97.3 03/30/21 03:38: D-Dimer, Quantitative 665.68H CBC/BMP Laboratory Tests 03/29/21 22:50 03/29/21 22:51 Microbiology Microbiology 03/29/21 Respiratory Virus Panel (PCR) (DIYA) - Final, Complete Coronavirus Oc43 Home Medications Scheduled Buspirone HCl (Buspirone HCl) 15 Mg Tab, 15 MG PO BID Duloxetine Hcl (Duloxetine HCl) 60 Mg Capsule.dr, 60 MG PO DAILY Ergocalciferol (Vitamin D2) (Vitamin D2) 50,000 Units Cap, 50,000 UNITS PO QWEEK MONDAY Estradiol (Estradiol) 2 Mg Tab, 2 MG PO DAILY Levothyroxine Sodium (Levothyroxine Sodium) 137 Mcg Tablet, 137 MCG PO DAILY Lisinopril (Lisinopril) 10 Mg Tablet, 10 MG PO DAILY Nortriptyline HCl (Nortriptyline HCl) 10 Mg Capsule, 20 MG PO QHS Oxybutynin Chloride (Oxybutynin Chloride ER) 10 Mg Tab, 10 MG PO DAILY Pravastatin Sodium (Pravastatin Sodium) 40 Mg Tab, 40 MG PO DAILY Pregabalin (Pregabalin) 300 Mg Capsule, 300 MG PO BID Ropinirole HCl (Ropinirole HCl) 1 Mg Tab, 1 MG PO QHS Scheduled PRN Acetaminophen (Acetaminophen) 500 Mg Tablet, 500 MG PO Q6H PRN for PAIN LEVEL 1- 5 Albuterol Sulfate (Proair Hfa) 8.5 Gm Hfa.aer.ad, 2 PUFF INH Q6H PRN for SOB/COUGH Tizanidine HCl (Tizanidine HCl) 4 Mg Tablet, 4 MG PO TID PRN for MUSCLE SPASMS Trazodone HCl (Trazodone HCl) 100 Mg Tab, 100 MG PO QHS PRN for SLEEP Allergies Coded Allergies: No Known Allergies (Unverified , 03/10/21) A-FIB/CHADSVASC A-FIB History Current/History of A-Fib/PAF?: No Current PO Anticoag Therapy: No Attending Note Patient was not physically seen by me. Keny Perales, Physician Manager [employer] discussed the patient with me touching upon history, physical examination findin gs, laboratory findings, imaging reports, and assessment. I agree with the assessment and plan documented. KENY PERALES Mar 30, 2021 04:29 Ludin Astorga Mar 30, 2021 05:31
[2021-03-30] MEDS ORDERED: PREG300C PO (04:32)
[2021-03-30] MEDS ORDERED: NORT10CA2 PO (04:32)
[2021-03-30] MEDS ORDERED: ACET500T15 PO (04:32)
[2021-03-30] MEDS ORDERED: PROAAER10 INH (04:32)
[2021-03-30] MEDS ORDERED: DULO1CAP6 PO (04:32)
[2021-03-30] MEDS ORDERED: LEVO137T2 PO (04:32)
[2021-03-30 04:35] LABS: INR 1.01; PROTHROMBIN TIME 13.7 SECONDS (12.7-14.5)
[2021-03-30] MEDS ORDERED: HOME MED LIST COMPLETE! XX SCH (04:35)
[2021-03-30 04:36] LABS: PARTIAL THROMBOPLASTIN TIME 35.2 SECONDS (25.9-37.0)
[2021-03-30] MEDS ORDERED: traZODone 100 MG TAB PO PRN (04:50)
[2021-03-30] MEDS ORDERED: tiZANidine 4 MG TAB PO PRN (04:50)
[2021-03-30 06:10] LABS: NT-PRO BNP 35 PG/ML (<125)
[2021-03-30 06:43] VITALS: BP 137/75
[2021-03-30] MEDS: BENZONATATE 100MG CAPSULE PO SCH ×3 (06:53→21:40)
[2021-03-30] MEDS: ENOXAPARIN 100MG/1ML SYRINGE (J1650 PER 10MG) SC SCH ×2 (06:54→21:42)
[2021-03-30] MEDS: IPRATROPIUM 0.5MG/ALBUTEROL 2.5MG INH SOL UD 3ML (DUONEB) NEB SCH ×3 (08:00→19:53)
[2021-03-30] MEDS: busPIRone 5 MG TAB PO SCH ×2 (08:10→21:40)
[2021-03-30] MEDS: LEVOTHYROXINE 137MCG TABLET (0.137MG) PO SCH (08:10)
[2021-03-30] MEDS: PRAVASTATIN 20 MG TAB PO SCH (08:11)
[2021-03-30] MEDS: PREGABALIN 100 MG CAP (LYRICA) PO SCH ×2 (08:11→21:40)
[2021-03-30] MEDS: DULoxetine 30MG CAPSULE (CYMBALTA) PO SCH (08:11)
[2021-03-30] MEDS: oxyBUTYnin *DITROPAN XL* 5 MG TABCR PO SCH (08:12)
[2021-03-30] MEDS: dexameTHASONE 4 MG/ML 1ML VIAL (J1100 PER 1MG) IV SCH ×2 (08:13→21:41)
[2021-03-30] MEDS: ACETAMINOPHEN TAB 650MG DOSE (2X325MG) PO PRN ×3 (08:53→21:39)
[2021-03-30] MEDS ORDERED: ENOXAPARIN 40MG/0.4ML SYRINGE (J1650 PER 10MG) SC SCH (09:00)
[2021-03-30 10:24] LABS: HEMATOCRIT 40.4 % (36.0-47.0); HEMOGLOBIN 13.6 g/dl (12.0-15.5); MEAN CORPUSCULAR HEMOGLOBIN 31.7 pg (27.0-33.0); MEAN CORPUSCULAR HGB CONC 33.7 g/dl (32.0-36.5); MEAN CORPUSCULAR VOLUME 94.2 fl (80.0-96.0); PLATELET COUNT, AUTOMATED 135 10^3/uL (150-450); RED BLOOD COUNT 4.29 10^6/uL (4.00-5.40); WHITE BLOOD COUNT 6.6 10^3/uL (4.0-10.0)
[2021-03-30] MEDS: estradioL 1 MG TAB PO SCH (10:38)
[2021-03-30 10:55] LABS: BLOOD UREA NITROGEN 10 MG/DL (7-18); CALCIUM LEVEL 8.6 MG/DL (8.5-10.1); CARBON DIOXIDE LEVEL 26 MEQ/L (21-32); CHLORIDE LEVEL 111 MEQ/L (98-107); GLOMERULAR FILTRATION RATE > 60.0 (>51); GLUCOSE, FASTING 175 MG/DL (70-100); POTASSIUM SERUM 4.4 MEQ/L (3.5-5.1); SODIUM LEVEL 142 MEQ/L (136-145)
[2021-03-30 14:00] VITALS: BP 126/90
--- NOTE | 2021-03-30 15:02 | IPNPDOC ---
Subjective Date Seen The patient was seen on 03/30/21. Subjective Chief Complaint/HPI Mrs. Horvath is a 50-year-old female with history of smoking and hypertension who presents with shortness of breath. Patient tells me that this morning she is feeling better. Denies chest pain or shortness of breath. She tells me that last night, the contrast blew, and she got contrast in her hair. She is a former smoker, but has no known history of COPD. Otherwise, she is on estradiol for hysterectomy with oophorectomy. Objective Physical Examination General Exam: Positive: Alert, Cooperative Eye Exam: Positive: EOMI; Negative: Sclera icteric ENT Exam: Positive: Atraumatic Neck Exam: Positive: Supple Chest Exam: Positive: Clear to auscultation Heart Exam: Positive: Rate Normal, Regular Rhythm Abdomen Exam: Positive: Normal bowel sounds, Soft; Negative: Tenderness Neuro Exam: Positive: Normal Speech Psych Exam: Positive: Mental status NL, Mood NL Assessment /Plan Assessment Mrs. Horvath is a 50-year-old female with history of smoking and hypertension who presents with shortness of breath. She does not know if she has COPD, but she may benefit from testing. On admission she had wheezing to suggest either COPD exacerbation versus asthma exacerbation. She has done well with IV steroids. This morning, she was hypoxic at 89% at room air. This is most likely due to her viral infection. We will add on incentive spirometer to help with her oxygenation Given her smoking history and estradiol, she is at risk for PE. Last night she had an error with the contrast. Will order repeat CT angio chest for tomorrow morning. Plan/VTE VTE Prophylaxis Ordered?: Yes Plan 1. Hypoxia Most likely due to coronavirus respiratory infection Patient has high risk for PE. Patient had a contrast error. Will order for another CT angio chest tomorrow Until then we will continue full dose Lovenox. If negative, can discontinue Lovenox Supplemental oxygen Patient may have COPD/asthma. Continue with IV steroids Start incentive spirometer 2. Estrogen use after hysterectomy with oophorectomy Patient on estradiol Puts patient at risk for clots Pending repeat CT angio chest tomorrow 3. Hypertension Blood pressure acceptable Continue lisinopril 4. Hyperlipidemia Continue pravastatin 5. Hypothyroidism Continue levothyroxine 6. Restless leg syndrome Continue ropinirole 7. Depression/anxiety Continue trazodone, nortriptyline, buspirone, and duloxetine 8. Spasm/neuropathy Continue pregabalin and tizanidine 9. Overactive bladder Continue oxybutynin 10. DVT prophylaxis Continue full dose Lovenox Disposition: Pending improvement in oxygenation and CT angio results VS, I&O, 24H, Fishbone Vital Signs/I&O Vital Signs Date Time Temp Pulse Resp B/P (MAP) Pulse Ox O2 Delivery O2 Flow Rate FiO2 03/30/21 14:00 98.4 98 16 126/90 (102) 91 Nasal Cannula 2.0 I&O- Last 24 Hours up to 6 AM 03/30/21 06:00 Intake Total 1000 ml Balance 1000 ml Laboratory Data 24H LABS Laboratory Tests 2 03/29/21 22:50: Anion Gap 7L, Glomerular Filtration Rate > 60.0, Calcium Level 8.2L, [id number]-Type Natriuretic Peptide 35, Thyroid Stimulating Hormone (TSH) 1.080 03/29/21 22:51: Immature Granulocyte % (Auto) 0.3, Neutrophils (%) (Auto) 80.3H, Lymphocytes (%) (Auto) 10.4L, Monocytes (%) (Auto) 6.7, Eosinophils (%) (Auto) 1.7, Basophils (%) (Auto) 0.6, Neutrophils # (Auto) 7.6, Lymphocytes # (Auto) 1.0L, Monocytes # (Auto) 0.6, Eosinophils # (Auto) 0.2, Basophils # (Auto) 0.1, Nucleated Red Blood Cells % (auto) 0.0 03/29/21 23:45: Total Creatine Kinase 158, Creatine Kinase MB 1.8, Creatine Kinase MB Relative Index 1.14, Troponin I High Sensitivity 6.0 03/30/21 01:55: Blood Gas Bicarbonate Standard 24.2, Arterial Blood pH 7.380, Arterial Blood Partial Pressure CO2 43.1, Arterial Blood Partial Pressure O2 96.2, Arterial Blood Total CO2 26.2, Arterial Blood HCO3 24.9, Arterial Blood Base Excess -0.3, Arterial Blood Oxygen Saturation 97.3 03/30/21 03:38: Prothrombin Time 13.7, Prothromb Time International Ratio 1.01, Activated Partial Thromboplast Time 35.2, D-Dimer, Quantitative 665.68H 03/30/21 08:32: Procalcitonin <0.05 03/30/21 10:02: Nucleated Red Blood Cells % (auto) 0.0, Anion Gap 5L, Glomerular Filtration Rate > 60.0, Calcium Level 8.6 CBC/BMP Laboratory Tests 03/29/21 22:50 03/29/21 22:51 03/30/21 10:02 Microbiology Microbiology 03/29/21 Respiratory Virus Panel (PCR) ([facility]) - Final, Complete Coronavirus Oc43 JULIANNA SANCHEZ DO Mar 30, 2021 15:02
[2021-03-30] MEDS ORDERED: NORTRIPTYLINE 10 MG CAP PO SCH (21:00)
[2021-03-30] MEDS ORDERED: rOPINIRole 1MG TAB PO SCH (21:00)
[2021-03-30 22:00] VITALS: BP 162/100
[2021-03-31] MEDS: IPRATROPIUM 0.5MG/ALBUTEROL 2.5MG INH SOL UD 3ML (DUONEB) NEB SCH ×2 (01:34→07:17)
[2021-03-31] MEDS: LEVOTHYROXINE 137MCG TABLET (0.137MG) PO SCH (05:16)
[2021-03-31] MEDS: BENZONATATE 100MG CAPSULE PO SCH (05:16)
[2021-03-31 06:00] VITALS: BP 118/78
[2021-03-31 06:41] LABS: HEMATOCRIT 41.4 % (36.0-47.0); HEMOGLOBIN 13.6 g/dl (12.0-15.5); MEAN CORPUSCULAR HEMOGLOBIN 31.3 pg (27.0-33.0); MEAN CORPUSCULAR HGB CONC 32.9 g/dl (32.0-36.5); MEAN CORPUSCULAR VOLUME 95.2 fl (80.0-96.0); PLATELET COUNT, AUTOMATED 142 10^3/uL (150-450); RED BLOOD COUNT 4.35 10^6/uL (4.00-5.40); WHITE BLOOD COUNT 8.2 10^3/uL (4.0-10.0)
[2021-03-31 07:03] LABS: BLOOD UREA NITROGEN 11 MG/DL (7-18); CALCIUM LEVEL 8.7 MG/DL (8.5-10.1); CARBON DIOXIDE LEVEL 26 MEQ/L (21-32); CHLORIDE LEVEL 110 MEQ/L (98-107); CREATININE FOR GFR 0.77 MG/DL (0.55-1.30); GLOMERULAR FILTRATION RATE > 60.0 (>51); GLUCOSE, FASTING 125 MG/DL (70-100); MAGNESIUM LEVEL 2.4 MG/DL (1.8-2.4); POTASSIUM SERUM 4.2 MEQ/L (3.5-5.1); SODIUM LEVEL 141 MEQ/L (136-145)
[2021-03-31] MEDS ORDERED: ISOVUE-370 76% 100ML VIAL As Ordered ONE (07:30)
--- NOTE | 2021-03-31 08:59 | REP ---
INDICATION: r/o PE, previous study suboptimal COMPARISON: 03/30/2021 TECHNIQUE: CT angiography of the chest after the intravenous administration of 75 cc Isovue 370 attention pulmonary arteries. FINDINGS: There is adequate visualization of the pulmonary arterial vasculature. No focal filling defects are present that would be considered consistent with acute pulmonary emboli. There are no pleural or pericardial effusions. There is no mediastinal or hilar adenopathy. The imaged upper abdomen and imaged osseous structures are stable. Evaluation of the lung diaz shows a small discoid opacity in the right mid and lower lung zone representing a change from the prior exam. The lung diaz are otherwise stable. IMPRESSION: 1. There is no evidence of a pulmonary embolism. 2. Right mid lung zone subsegmental atelectatic changes particularly affecting the right lower lobe. <Electronically signed by Slim Irizarry > 03/31/21 [id number]
[2021-03-31] MEDS: estradioL 1 MG TAB PO SCH (09:00)
[2021-03-31] MEDS: dexameTHASONE 4 MG/ML 1ML VIAL (J1100 PER 1MG) IV SCH (09:17)
[2021-03-31] MEDS: oxyBUTYnin *DITROPAN XL* 5 MG TABCR PO SCH (09:18)
[2021-03-31] MEDS: ENOXAPARIN 100MG/1ML SYRINGE (J1650 PER 10MG) SC SCH (09:18)
[2021-03-31] MEDS: PREGABALIN 100 MG CAP (LYRICA) PO SCH (09:19)
[2021-03-31] MEDS: PRAVASTATIN 20 MG TAB PO SCH (09:19)
[2021-03-31] MEDS: DULoxetine 30MG CAPSULE (CYMBALTA) PO SCH (09:19)
[2021-03-31 09:20] VITALS: BP 132/76
[2021-03-31] MEDS: busPIRone 5 MG TAB PO SCH (09:20)
[2021-03-31] MEDS ORDERED: PRED5PAK2 PO (09:35)
[2021-03-31] MEDS ORDERED: BENZ-18 PO (09:35)
[2021-03-31] MEDS ORDERED: PRED10TA2 PO (16:45)
--- NOTE | 2021-03-31 19:01 | DS.PDOC ---
Discharge Summary General Date of Admission Mar 29, 2021 at 22:37 Date of Discharge Mar 31, 2021 Discharge Summary PROCEDURES PERFORMED DURING STAY: None ADMITTING DIAGNOSES: 1. Coronavirus infection (not Covid) 2. Hypertension 3. Hyperlipidemia 4. Hypothyroidism 5. Restless leg syndrome 6. Depression/anxiety 7. Spasm/neuropathy 8. Overactive bladder 9. Estrogen use after hysterectomy with oophorectomy DISCHARGE DIAGNOSES: 1. Coronavirus infection (not Covid) 2. Hypertension 3. Hyperlipidemia 4. Hypothyroidism 5. Restless leg syndrome 6. Depression/anxiety 7. Spasm/neuropathy 8. Overactive bladder 9. Estrogen use after hysterectomy with oophorectomy COMPLICATIONS/CHIEF COMPLAINT: Acute Respiratory Failure With Hypoxia. HISTORY OF PRESENT ILLNESS: Copied from admitting provider's H&P "This is a 50 y/o female with a pmh of hld, htn, hypothyroidism who presents to our ED for evaluation of headache, sob that have progressively worsened for approx 5 days. Patient tells me that she received her covid booster on 03/25, and ever since has felt ill. Patient tells me that her symptoms began with fatigue, malaise, cough and headache. Patient tells me that her symptoms have progressively worsened. Patient complains of persistent cough that is nonproductive in nature that has been causing her some chest tightness. Patient tells me that her headache has been associated with photophobia, however tells me that she has also just had a cataract removal procedure 11 days ago. Patient also complains of shortness of breath. Patient, at the time of my exam, denies any substernal chest pain, abd pain, n/v/d/c, dysuria, pedal edema, hemoptysis, syncope, paresthesias." HOSPITAL COURSE: On admission, patient had an error with contrast. Patient tells me that the contrast blew and was all over her. Radiology report states that CT angio was suboptimal. We had to wait [address] angio chest. Patient is at increased risk for clots as she is on estrogen. Patient was empirically on full dose Lovenox. Otherwise, patient was put on dexamethasone IV [address] angio chest returned negative for clot and full dose Lovenox was discontinued. This morning patient feels well. Her breathing is much improved and she denies any chest pain. Patient feels ready for home. We will discharge her home with a steroid taper DISCHARGE MEDICATIONS: Please see below. ALLERGIES: Please see below. PHYSICAL EXAMINATION ON DISCHARGE: VITAL SIGNS: Please see below. GENERAL: Comfortable, in no apparent distress. HEENT: EOMI, sclera clear. NECK: Supple. RESPIRATORY: Lungs clear to auscultation bilaterally, no rales, wheeze or rhonchi. CARDIOVASCULAR: Regular rate and rhythm. ABDOMEN: Soft, nontender, no guarding or rebound tenderness. Normal bowel ricki nds. MUSCLE SKELETAL: Muscle strength 5/5 in all extremities. NEUROLOGICAL: CN 3-12 grossly intact, no focal deficits noted. PSYCHOLOGICAL: Normal mood and affect LABORATORY DATA: Please see below. IMAGING: Radiologist interpretation CT angio chest 1. There is no evidence of a pulmonary embolism. 2. Right mid lung zone subsegmental atelectatic changes particularly affecting the right lower lobe. PROGNOSIS: Good ACTIVITY: As tolerated. DIET: As tolerated DISCHARGE PLAN: Patient to return home. Continue prednisone to completion DISPOSITION: Home, Self-Care. DISCHARGE INSTRUCTIONS: 1. Follow-up with PCP in a week. ITEMS TO FOLLOWUP ON ON OUTPATIENT: 1. Patient may benefit from PFTs DISCHARGE CONDITION: Stable. Total time spent on discharge planning, discharge summary, and medication reconciliation: 45-minute Vital Signs/I&Os Vital Signs Date Time Temp Pulse Resp B/P (MAP) Pulse Ox O2 Delivery O2 Flow Rate FiO2 03/31/21 09:20 132/76 03/31/21 06:00 98.7 86 17 91 Room Air 03/30/21 14:00 2.0 I&O- Last 24 Hours up to 6 AM 03/31/21 06:00 Intake Total 480 ml Output Total 1250 ml Balance -770 ml Laboratory Data Labs 24H Laboratory Tests 2 03/31/21 05:46: Nucleated Red Blood Cells % (auto) 0.0, Anion Gap 5L, Glomerular Filtration Rate > 60.0, Calcium Level 8.7, Magnesium Level 2.4 CBC/BMP Laboratory Tests 03/31/21 05:46 Microbiology Microbiology 03/29/21 Respiratory Virus Panel (PCR) ([facility]) - Final, Complete Coronavirus Oc43 Discharge Medications Scheduled Benzonatate (Benzonatate) 100 Mg Capsule, 100 MG PO TID Buspirone HCl (Buspirone HCl) 15 Mg Tab, 15 MG PO BID, (Reported) Duloxetine Hcl (Duloxetine HCl) 60 Mg Capsule.dr, 60 MG PO DAILY, (Reported) Ergocalciferol (Vitamin D2) (Vitamin D2) 50,000 Units Cap, 50,000 UNITS PO QWEEK, (Reported) MONDAY Estradiol (Estradiol) 2 Mg Tab, 2 MG PO DAILY, (Reported) Levothyroxine Sodium (Levothyroxine Sodium) 137 Mcg Tablet, 137 MCG PO DAILY, (Reported) Lisinopril (Lisinopril) 10 Mg Tablet, 10 MG PO DAILY, (Reported) Nortriptyline HCl (Nortriptyline HCl) 10 Mg Capsule, 20 MG PO QHS, (Reported) Oxybutynin Chloride (Oxybutynin Chloride ER) 10 Mg Tab, 10 MG PO DAILY, (Reported) Pravastatin Sodium (Pravastatin Sodium) 40 Mg Tab, 40 MG PO DAILY, (Reported) Prednisone (Prednisone) 10 Mg Tablet, 10 MG PO TAPER Take 4 tabs daily x 3 days, then 3 tabs daily x 3 days, then 2 tabs daily x 3 days, then 1 tab daily x 3 days and stop Pregabalin (Pregabalin) 300 Mg Capsule, 300 MG PO BID, (Reported) Ropinirole HCl (Ropinirole HCl) 1 Mg Tab, 1 MG PO QHS, (Reported) Scheduled PRN Acetaminophen (Acetaminophen) 500 Mg Tablet, 500 MG PO Q6H PRN for PAIN LEVEL 1- 5, (Reported) Albuterol Sulfate (Proair Hfa) 8.5 Gm Hfa.aer.ad, 2 PUFF INH Q6H PRN for SOB/COUGH, (Reported) Tizanidine HCl (Tizanidine HCl) 4 Mg Tablet, 4 MG PO TID PRN for MUSCLE SPASMS, (Reported) Trazodone HCl (Trazodone HCl) 100 Mg Tab, 100 MG PO QHS PRN for SLEEP, (Reported) Allergies Coded Allergies: No Known Allergies (Unverified , 03/10/21) JULIANNA SANCHEZ DO Mar 31, 2021 19:01
== END 2021-03-31 13:57 | disposition home or self-care (01) ==
LOC: M ED 22:36 → M ED INP 22:37 → ENRESERV 03-30 06:09 → M MSPAV 03-30 06:43
PROVIDERS: ADMIT Internal Medicine; ATTEND Internal Medicine
DX: B34.2 Coronavirus infection, unspecified (principal); I10 Essential (primary) hypertension; E78.5 Hyperlipidemia, unspecified; E03.9 Hypothyroidism, unspecified; G25.81 Restless legs syndrome; F41.9 Anxiety disorder, unspecified; F32.9 Major depressive disorder, single episode, unspecified; M62.838 Other muscle spasm; G90.09 Other idiopathic peripheral autonomic neuropathy; N32.81 Overactive bladder; Z79.810 Long term (current) use of selective estrogen receptor modulators (SERMs); Z79.52 Long term (current) use of systemic steroids; Z79.899 Other long term (current) drug therapy
CPT/HCPCS: 36415; 36600; 71045; 71275; 80048; 82550; 82553; 82803; 83735; 83880; 84145; 84443; 84484; 85025; 85027; 85379; 85610; 85730; 87798; 93005; 93041; 94640; 94760; 96361; 96372; 96374; 96375; 96376; 99285; J1100; J1200; J1650; J1885; J2765; J2930; Q9967

== ENCOUNTER → 2021-04-26 | Outpatient (CLI) | payer OTHER, MEDICARE ==
[~2021-04-26] MED LIST changes: +ACET500T15 PO; +BENZ-18 PO; +DULO1CAP6 PO; +LEVO137T2 PO; -LISI10TA15 PO; +LISI10TA24 PO; +NORT10CA2 PO; +PRED5PAK2 PO; +PREDOPD OU; +PROAAER10 INH; +TIZA10TA PO; -TIZA4TAB4 PO
== END ==
LOC: M LABSMTC 10:33
PROVIDERS: ATTEND Anesthesiology
DX: Z01.812 Encounter for preprocedural laboratory examination (principal); Z20.822 Contact with and (suspected) exposure to COVID-19

== ENCOUNTER 2021-04-30 07:35 | Day surgery (SDC) | payer OTHER, MEDICARE ==
[~2021-04-30] VITALS: Ht 160 cm; Wt 106.0 kg
[2021-04-30 12:07] VITALS: BP 135/79
== END 2021-04-30 12:15 | disposition home or self-care (01) ==
LOC: M SDC 07:35
PROVIDERS: ATTEND Ophthalmology
DX: H25.12 Age-related nuclear cataract, left eye (principal); I10 Essential (primary) hypertension; E78.5 Hyperlipidemia, unspecified; E03.9 Hypothyroidism, unspecified; F41.9 Anxiety disorder, unspecified; F32.A Depression, unspecified; Z86.16 Personal history of COVID-19; Z79.899 Other long term (current) drug therapy
CPT/HCPCS: 66984; J1097; J2250

== ENCOUNTER → 2021-07-22 | Outpatient (CLI) | payer OTHER, MEDICARE | LOC: M RAD 10:54 | PROVIDERS: ATTEND Physician Assistant | DX: R10.9 Unspecified abdominal pain (principal); K42.9 Umbilical hernia without obstruction or gangrene ==

== ENCOUNTER → 2021-09-08 | Outpatient (CLI) | payer OTHER, MEDICARE ==
[~2021-09-08] MED LIST changes: +LISI20TA33; +MELO15TA28 PO; +MULT-90 PO
== END ==
LOC: M LABSMTC 10:07
PROVIDERS: ATTEND Anesthesiology
DX: Z01.812 Encounter for preprocedural laboratory examination (principal); Z20.822 Contact with and (suspected) exposure to COVID-19

== ENCOUNTER 2021-09-13 08:46 | Day surgery (SDC) | payer OTHER, MEDICARE ==
[~2021-09-13] VITALS: Ht 160 cm; Wt 98.8 kg
[~2021-09-13 08:46] MED LIST changes: +CelecoXIB 400 MG CAP PO ONE; +KETOROLAC 60MG 2ML VIAL As Ordered ONE; +LIDOCAINE 2% 100MG/5ML SDV (FOR ANES.) As Ordered ONE; +MIDAZOLAM INJ 2MG/2ML VIAL (J2250 PER 1MG) As Ordered ONE; +ONDANSETRON 4MG/2ML VIAL As Ordered ONE; +ROCURONIUM BROMIDE 50 MG/5 ML VIAL As Ordered ONE; +SUGAMMADEX SODIUM 500 MG/5 ML VIAL (BRIDION) As Ordered ONE; +ceFAZolin SOD 2 GM in IV 1 EA IV ONE; +dexameTHASONE 4 MG/ML 1ML VIAL (J1100 PER 1MG) As Ordered ONE; +fentaNYL 250 MCG/5 ML INJECTION As Ordered ONE; +propofoL 200 MG/20 ML VIAL As Ordered ONE
[2021-09-13] MEDS ORDERED: LR 1,000 ML IV SCH ×2 (09:35→13:05)
[2021-09-13] MEDS ORDERED: BUPIVACAINE HCL 0.25% 30ML VIAL As Ordered ONE (09:50)
[2021-09-13] MEDS ORDERED: LIDOCAINE 1% SDV 30ML VIAL As Ordered ONE (09:50)
[2021-09-13] MEDS ORDERED: BUPIVACAINE LIPOSOME/PF 1.3% 20ML VIAL (13.3MG/ML)(EXPAREL) As Ordered ONE (09:51)
[2021-09-13] MEDS ORDERED: ALBUTEROL 6.7GM INHALER **FOR ANES. CART/OMNICELL ONLY As Ordered ONE (10:28)
[2021-09-13] MEDS ORDERED: ACETAMINOPHEN 1000MG 100ML IV BTL (OFIRMEV) (J0131 PER 10MG) As Ordered ONE (11:02)
[2021-09-13] MEDS ORDERED: ROCURONIUM BROMIDE 50 MG/5 ML VIAL As Ordered ONE (11:13)
[2021-09-13] MEDS ORDERED: fentaNYL 100 MCG/2 ML INJECTION IV PRN (13:05)
[2021-09-13] MEDS ORDERED: ONDANSETRON 4MG/2ML VIAL IV PRN (13:05)
[2021-09-13] MEDS ORDERED: MORPHINE 2 MG/ML 1ML VIAL IV PRN (13:05)
[2021-09-13] MEDS: oxyCODONE 5MG TAB PO PRN ×2 (13:14→14:09)
[2021-09-13] MEDS ORDERED: KETOROLAC 30 MG/ML 1ML VIAL IV PRN (13:25)
[2021-09-13] MEDS ORDERED: NORCO, ANEXSIA 5/325MG TABLET (HYDROcodone/ACETAMINOPHEN) PO PRN ×2 (13:25)
[2021-09-13 14:35] VITALS: BP 128/58
[2021-09-13] MEDS ORDERED: SUGAMMADEX SODIUM 500 MG/5 ML VIAL (BRIDION) As Ordered ONE (14:45)
== END 2021-09-13 14:55 | disposition home or self-care (01) ==
LOC: M SDC 08:46
PROVIDERS: ATTEND Surgery
DX: K43.2 Incisional hernia without obstruction or gangrene (principal); I10 Essential (primary) hypertension; E78.5 Hyperlipidemia, unspecified; E03.9 Hypothyroidism, unspecified; K57.92 Diverticulitis of intestine, part unspecified, without perforation or abscess without bleeding; F41.9 Anxiety disorder, unspecified; F32.A Depression, unspecified; Z79.51 Long term (current) use of inhaled steroids; Z79.52 Long term (current) use of systemic steroids; Z79.899 Other long term (current) drug therapy; Z87.891 Personal history of nicotine dependence
CPT/HCPCS: 49654; C1781; C9290; J0131; J0690; J1100; J1885; J2250; J2405; J3010; S2900

== ENCOUNTER 2021-09-30 12:40 | Emergency (ER) | payer OTHER, MEDICARE ==
[~2021-09-30] VITALS: Ht 162.6 cm; Wt 97.7 kg
[~2021-09-30 12:40] MED LIST changes: -CelecoXIB 400 MG CAP PO ONE; -KETOROLAC 60MG 2ML VIAL As Ordered ONE; -LIDOCAINE 2% 100MG/5ML SDV (FOR ANES.) As Ordered ONE; -MIDAZOLAM INJ 2MG/2ML VIAL (J2250 PER 1MG) As Ordered ONE; -ONDANSETRON 4MG/2ML VIAL As Ordered ONE; -ROCURONIUM BROMIDE 50 MG/5 ML VIAL As Ordered ONE; -SUGAMMADEX SODIUM 500 MG/5 ML VIAL (BRIDION) As Ordered ONE; -ceFAZolin SOD 2 GM in IV 1 EA IV ONE; -dexameTHASONE 4 MG/ML 1ML VIAL (J1100 PER 1MG) As Ordered ONE; -fentaNYL 250 MCG/5 ML INJECTION As Ordered ONE; -propofoL 200 MG/20 ML VIAL As Ordered ONE
[2021-09-30 13:54] LABS: BASO # 0.1 10^3/uL (0.0-0.2); BASO % 0.8 % (0.0-1.0); EOS # 0.3 10^3/uL (0.0-0.5); EOS % 3.1 % (0.0-3.0); HEMATOCRIT 39.9 % (36.0-47.0); HEMOGLOBIN 13.3 g/dl (12.0-15.5); LYMPH # 2.4 10^3/uL (1.5-5.0); LYMPH % 28.1 % (24.0-44.0); MEAN CORPUSCULAR HEMOGLOBIN 32.2 pg (27.0-33.0); MEAN CORPUSCULAR HGB CONC 33.3 g/dl (32.0-36.5); MEAN CORPUSCULAR VOLUME 96.6 fl (80.0-96.0); MONO # 0.5 10^3/uL (0.0-0.8); MONO % 5.5 % (2.0-8.0); NEUTROPHILS # 5.2 10^3/uL (1.5-8.5); NEUTROPHILS % 62.1 % (36.0-66.0); PLATELET COUNT, AUTOMATED 189 10^3/uL (150-450); RED BLOOD COUNT 4.13 10^6/uL (4.00-5.40); WHITE BLOOD COUNT 8.4 10^3/uL (4.0-10.0)
[2021-09-30] MEDS ORDERED: NS 1,000 ML IV ONE (14:20)
[2021-09-30] MEDS ORDERED: KETOROLAC 30 MG/ML 1ML VIAL IV ONE (14:20)
[2021-09-30] MEDS ORDERED: ISOVUE-370 76% 100ML VIAL As Ordered ONE (14:22)
[2021-09-30 14:23] LABS: ALBUMIN 4.2 GM/DL (3.2-5.2); ALT/SGPT 20 U/L (12-78); BILIRUBIN,DIRECT < 0.1 MG/DL (0.0-0.2); BILIRUBIN,TOTAL 0.2 MG/DL (0.2-1.0); LIPASE 100 U/L (73-393)
[2021-09-30 16:12] VITALS: BP 159/84
== END 2021-09-30 16:13 | disposition home or self-care (01) ==
LOC: M ED 12:40
DX: G89.18 Other acute postprocedural pain (principal); I10 Essential (primary) hypertension; E78.5 Hyperlipidemia, unspecified; E03.9 Hypothyroidism, unspecified; F32.A Depression, unspecified; F41.9 Anxiety disorder, unspecified; Z79.890 Hormone replacement therapy; Z79.899 Other long term (current) drug therapy; Z83.79 Family history of other diseases of the digestive system
CPT/HCPCS: 74177; 80047; 80076; 83690; 85025; 96374; 99284; J1885; Q9967

== ENCOUNTER → 2021-11-24 | Outpatient (CLI) | payer OTHER | LOC: M RAD 10:45 | PROVIDERS: ATTEND Orthopaedic Surgery | DX: M48.061 Spinal stenosis, lumbar region without neurogenic claudication (principal); M51.26 Other intervertebral disc displacement, lumbar region; M51.27 Other intervertebral disc displacement, lumbosacral region ==

== ENCOUNTER → 2021-12-07 | Outpatient (CLI) | payer OTHER | LOC: M PLAIMG 08:03 | PROVIDERS: ATTEND Physician Assistant | DX: Z53.9 Procedure and treatment not carried out, unspecified reason (principal) ==

== ENCOUNTER → 2021-12-31 | Outpatient (CLI) | payer OTHER ==
[2021-12-31 09:18] LABS: BASO % 0.6 % (0.0-1.0); EOS # 0.3 10^3/uL (0.0-0.5); EOS % 4.8 % (0.0-3.0); HEMATOCRIT 39.6 % (36.0-47.0); HEMOGLOBIN 13.1 g/dl (12.0-15.5); LYMPH # 1.6 10^3/uL (1.5-5.0); LYMPH % 25.6 % (24.0-44.0); MEAN CORPUSCULAR HEMOGLOBIN 31.6 pg (27.0-33.0); MEAN CORPUSCULAR HGB CONC 33.1 g/dl (32.0-36.5); MEAN CORPUSCULAR VOLUME 95.4 fl (80.0-96.0); MONO # 0.5 10^3/uL (0.0-0.8); MONO % 7.2 % (2.0-8.0); NEUTROPHILS # 3.8 10^3/uL (1.5-8.5); NEUTROPHILS % 61.6 % (36.0-66.0); PLATELET COUNT, AUTOMATED 148 10^3/uL (150-450); RED BLOOD COUNT 4.15 10^6/uL (4.00-5.40); WHITE BLOOD COUNT 6.2 10^3/uL (4.0-10.0)
[2021-12-31 09:58] LABS: ALBUMIN 3.7 GM/DL (3.2-5.2); ALT/SGPT 19 U/L (12-78); BILIRUBIN,TOTAL 0.3 MG/DL (0.2-1.0); BLOOD UREA NITROGEN 16 MG/DL (7-18); C REACTIVE PROTEIN QUANTITATIV 2.41 MG/DL (0.00-0.30); CALCIUM LEVEL 8.8 MG/DL (8.5-10.1); CARBON DIOXIDE LEVEL 31 MEQ/L (21-32); CHLORIDE LEVEL 106 MEQ/L (98-107); CREATININE FOR GFR 0.78 MG/DL (0.55-1.30); ERYTHROCYTE SEDIMENTATION RATE 9 mm/hr (0-30); GLOMERULAR FILTRATION RATE > 60.0 (>51); GLUCOSE, FASTING 91 MG/DL (70-100); POTASSIUM SERUM 4.4 MEQ/L (3.5-5.1); RHEUMATOID FACTOR QUANT 10.7 IU/ML (<15.0); SODIUM LEVEL 138 MEQ/L (136-145); TOTAL PROTEIN 6.6 GM/DL (6.4-8.2); URIC ACID 4.2 MG/DL (2.6-6.0)
== END ==
LOC: M LAB 08:00
PROVIDERS: ATTEND Physical Medicine & Rehabilitation
DX: M54.16 Radiculopathy, lumbar region (principal); M48.061 Spinal stenosis, lumbar region without neurogenic claudication

== ENCOUNTER → 2022-05-23 | Outpatient (REF) | payer OTHER, MEDICARE ==
[2022-05-23 12:14] LABS: BASO # 0.1 10^3/uL (0.0-0.2); BASO % 0.8 % (0.0-1.0); EOS # 0.2 10^3/uL (0.0-0.5); EOS % 2.9 % (0.0-3.0); HEMATOCRIT 41.2 % (36.0-47.0); HEMOGLOBIN 13.4 g/dl (12.0-15.5); LYMPH # 1.6 10^3/uL (1.5-5.0); LYMPH % 21.4 % (24.0-44.0); MEAN CORPUSCULAR HEMOGLOBIN 31.4 pg (27.0-33.0); MEAN CORPUSCULAR HGB CONC 32.5 g/dl (32.0-36.5); MEAN CORPUSCULAR VOLUME 96.5 fl (80.0-96.0); MONO # 0.6 10^3/uL (0.0-0.8); MONO % 7.8 % (2.0-8.0); NEUTROPHILS % 66.7 % (36.0-66.0); PLATELET COUNT, AUTOMATED 143 10^3/uL (150-450); RED BLOOD COUNT 4.27 10^6/uL (4.00-5.40); WHITE BLOOD COUNT 7.5 10^3/uL (4.0-10.0)
[2022-05-23 12:20] LABS: TOTAL 25(OH) VITAMIN D 81.6 NG/ML (20.0-100.0)
[2022-05-23 12:23] LABS: MAGNESIUM LEVEL 2.1 MG/DL (1.8-2.4); PHOSPHORUS LEVEL 3.1 MG/DL (2.5-4.9)
[2022-05-23 12:25] LABS: ERYTHROCYTE SEDIMENTATION RATE 16 mm/hr (0-30)
== END ==
LOC: M SFHCRHEU 10:23
PROVIDERS: ATTEND Internal Medicine
DX: M79.10 Myalgia, unspecified site (principal); D69.6 Thrombocytopenia, unspecified; R79.82 Elevated C-reactive protein (CRP)

== ENCOUNTER → 2022-06-16 | Outpatient (CLI) | payer OTHER, MEDICARE | LOC: M SLEEP HO 10:43 | PROVIDERS: ATTEND Internal Medicine | DX: G47.33 Obstructive sleep apnea (adult) (pediatric) (principal) ==

== ENCOUNTER → 2022-06-16 | Outpatient (CLI) | payer OTHER, MEDICARE | LOC: M RAD 10:49 | PROVIDERS: ATTEND Internal Medicine | DX: M25.50 Pain in unspecified joint (principal) ==